=== PATIENT | male | born 1970 | race Caucasian/White ===

== ENCOUNTER 2017-02-07 12:22 | Emergency (ER) | payer OTHER, MEDICARE ==
[~2017-02-07] VITALS: Ht 185.4 cm; Wt 112.9 kg
[~2017-02-07 12:22] MED LIST: ABILIFY; ACHD5005 PO; AZTH250C PO; CEFD300C3; CETI10TA17 PO; CETI10TA20 PO; CIPR500S2 PO; CLIN300C3 PO; CYCL10TA9 PO; DESV50TA; DESV50TA PO; DOXEPIN; DXCC100CRX; FAMO20TA5 PO; HSCO125; HYDR-1231 PO; HYDR-2856; HYDR-3714; HYDR118S10 PO; HYDR25CA PO; LORA10TA2 PO; LORA1TAB PO; MAG355OR PO; METHOTREXATE; METO-351 PO; NITR-65 PO; OMEP-10 PO; PANT20TA2 PO; PNT40TEC PO; PREG50C PO; PRM25T PO; ROPI1TAB; SCR1T PO; TEST1.25 TD; TEST75GE3 TD; TR1C15 TOP; [UNRECOGNIZED DRUG - OTHER]; [UNRECOGNIZED DRUG - OTHER] PO
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
[2017-02-07 14:27] VITALS: BP 128/80
== END 2017-02-07 14:27 | disposition home or self-care (01) ==
LOC: EDUNIT# 12:22 → ER 12:24
DX: S16.1XXA Strain of muscle, fascia and tendon at neck level, initial encounter (principal); K21.9 Gastro-esophageal reflux disease without esophagitis; F90.9 Attention-deficit hyperactivity disorder, unspecified type; F41.9 Anxiety disorder, unspecified; F32.9 Major depressive disorder, single episode, unspecified; Z87.19 Personal history of other diseases of the digestive system; Z98.1 Arthrodesis status; Z85.528 Personal history of other malignant neoplasm of kidney; V49.40XA Driver injured in collision with unspecified motor vehicles in traffic accident, initial encounter
CPT/HCPCS: 70450; 72125; 99282

== ENCOUNTER 2017-02-10 09:19 | Emergency (ER) | payer MEDICARE, MEDICAID ==
[~2017-02-10] VITALS: Ht 185.4 cm; Wt 113.2 kg
--- OUTSIDE RECORDS SUMMARY | 2017-02-10 09:27 | XMS REPORT | Encounter Summary ---
Author Author [facility] Organization [facility] Address Unknown Phone Unavailable Care Team Providers Care Census Enumerator Name Role Phone PCP Unavailable Encounter Details Date Type Department Care Team Description 11/05/2016 Procedure Pass [facility] - Urology 2ND FLOOR POD A [address] [facility] [place] [address] Social History Tobacco Use Types Packs/Day Years Used Date Never Smoker Smokeless Tobacco: Never Used Alcohol Use Drinks/Week oz/Week Comments No 0 Standard 0.0 drinks or equivalent Sex Assigned at Date Recorded Not on file as of this encounter Plan of Treatment Date Type Specialty Care Team Description 11/05/2016 Procedure Pass Urology 11/05/2016 Procedure Pass Urology as of this encounter Visit Diagnoses Not on filein this encounter
--- OUTSIDE RECORDS SUMMARY | 2017-02-10 09:27 | XMS REPORT ---
Author JORGE LUIS Valerio Organization [employer] Address Unknown Phone Unavailable Care Team Providers Care Hybrid Powertrain Development Engineer Name Role Phone JORGE LUIS MCDANIEL CP Unavailable Allergies No Known Allergies Problems Problem Type Condition Code Onset Dates Condition Status Problem Anxiety F41.9 Active Problem Hypertension, benign I10 Active Problem Right knee pain M25.561 Active Medications Medication Code System Code Instructions Start Date End Date Status Dosage Lorazepam [facility] [address]-94 1 MG Orally three times a day April 27, 2014 1 Tablet Results No Known Results Summary Purpose [employer] Submission
--- OUTSIDE RECORDS SUMMARY | 2017-02-10 09:27 | XMS REPORT | Continuity of Care Document ---
Author Author [facility] Organization [facility] Address Unknown Phone Unavailable Care Team Providers Care Triage Specialist Name Role Phone [employer] Unavailable Unavailable Problems Medications Allergies, Adverse Reactions, Alerts Immunizations Results Vital Signs Encounters Location Location Details Encounter Type Encounter Number Reason For Visit Attending Provider ADM Date DC Date Status Source OUTPATIENT [id number] ANIYA HUGHES 05/23/2015 05/23/2015 Active [facility] OUTPATIENT [id number] ANIYA HUGHES 11/05/2016 Active [facility] O ANIYA HUGHES 11/05/2016 Active [facility] Procedures Plan of Care Social History Assessment and Plan Family History Value Date Source Advance Directives Order Name Results Value Date Source
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
--- OUTSIDE RECORDS SUMMARY | 2017-02-10 09:27 | XMS REPORT ---
Author Author JORGE LUIS MCDANIEL [facility] Address [address] [place] [address] Care Team Providers Care Cleaning Crew Member Name Role Phone JORGE LUIS MCDANIEL Unavailable PROBLEMS Type Condition ICD9-CM Code [id number] Code Onset Dates Condition Status SNOMED Code Problem Anxiety F41.9 Active 14406963 Problem Irritable bowel syndrome with diarrhea K58.0 Active 61922386 Problem Right knee pain M25.561 Active 28761050 Problem Hypertension, benign I10 Active 89108023 Problem Hypotestosteronemia E29.1 Active 2279505111452 Problem Psoriasis L40.9 Active 9289481 Problem Neuropathy, idiopathic G60.9 Active 12482221 Problem Sore throat J02.9 Active 969531316 Problem Primary insomnia F51.01 Active 9942030 Problem Polyneuropathy G62.9 Active 83807968 ALLERGIES Unknown Allergies SOCIAL HISTORY No smoking Hx information available PLAN OF CARE VITAL SIGNS MEDICATIONS Medication Instructions Dosage Frequency Start Date End Date Duration Status Hydrocodone-Acetaminophen 7.5-325 MG Orally every 6 hrs 1 tablet as needed 6h Jan, 28 days Active RESULTS No Results PROCEDURES No Known procedures IMMUNIZATIONS No Known Immunizations
--- OUTSIDE RECORDS SUMMARY | 2017-02-10 09:27 | XMS REPORT ---
Author Author JORGE LUIS MCDANIEL Organization [facility] Address [address] [place] [address] Care Team Providers Care Inventory Technician Name Role Phone JORGE LUIS MCDANIEL Unavailable PROBLEMS Type Condition ICD9-CM Code [id number] Code Onset Dates Condition Status SNOMED Code Problem Anxiety F41.9 Active 83024512 Problem Irritable bowel syndrome with diarrhea K58.0 Active 34526891 Problem Right knee pain M25.561 Active 25370562 Problem Hypertension, benign I10 Active 58112810 Problem Hypotestosteronemia E29.1 Active 3226371445906 Problem Psoriasis L40.9 Active 2030826 Problem Neuropathy, idiopathic G60.9 Active 84311258 Problem Sore throat J02.9 Active 898499089 Problem Primary insomnia F51.01 Active 9458597 Problem Polyneuropathy G62.9 Active 01571037 ALLERGIES Substance Reaction Event Type Date Status Lunesta intolerant to taste Drug Allergy Jan, Active Cymbalta Unknown Drug Allergy Jan, Active Bactrim Unknown Drug Allergy Jan, Active SOCIAL HISTORY No smoking Hx information available PLAN OF CARE VITAL SIGNS Height 73 in 2016-02-09 Weight 241.3 lbs 2016-02-09 Temperature 98.1 degrees Fahrenheit 2016-02-09 Heart Rate 88 bpm 2016-02-09 Respiratory Rate 18 2016-02-09 BMI 31.83 kg/m2 2016-02-09 Blood pressure systolic 122 mmHg 2016-02-09 Blood pressure diastolic 90 mmHg 2016-02-09 MEDICATIONS Medication Instructions Dosage Frequency Start Date End Date Duration Status Acidophilus - Orally Once a day as directed 24h Jan, Active Cyclobenzaprine HCl 10 mg 1 tablet 8h 30 Active Famotidine 20 mg 1 tablet 12h 30 Active Xyzal 5 mg 1 tablet 24h 30 Active Dicyclomine HCl 20 mg Orally Four times a day 1 tablet 6h 30 Active Lorazepam 1 MG Orally 3 times a day 1 Tablet 8h Apr, 28 days Active Venlafaxine HCl ER 75 MG Orally Once a day 1 capsule with food 24h Dec, 30 day(s) Active Mirtazapine 15 MG Orally Once a day 1 tablet at bedtime 24h Jan, 30 day(s) Active Neurontin 800 MG Orally Three times a day 1 capsule 8h 30 Active Meloxicam 15 MG 1 tablet 24h 30 Active Sudafed 30 MG Orally 4 times a day 1 tablet as needed 6h June, Active Protonix 40 mg 1 tablet 24h 30 Active Clobetasol Propionate E 0.05 % Externally Twice a day 1 application to affected area 12h Active Zofran 8 MG Orally Once a day 1 tablet 24h 23 Jun, 2015 30 day(s) Active Metoprolol Tartrate 50 mg Orally Twice a day 1 tablet 12h 30 Active Hydrocodone-Acetaminophen 7.5-325 MG Orally every 6 hrs 1 tablet as needed 6h Active RESULTS No Results PROCEDURES Procedure Date Ordered Related Diagnosis Body Site [facility] VISIT ESTABLISHED PATIENT Feb 09, 2016 Office Visit, Est Pt., Level 3 Feb 09, 2016 IMMUNIZATIONS No Known Immunizations
--- OUTSIDE RECORDS SUMMARY | 2017-02-10 09:27 | XMS REPORT | Encounter Summary ---
Author Author [facility] Organization [facility] Address Unknown Phone Unavailable Care Team Providers Care Buffing Wheel Presser Name Role Phone PCP Unavailable Encounter Details Date Type Department Care Team Description 11/05/2016 Procedure Pass [facility] Physicians - Urology 2ND FLOOR POD A [address] [facility] [place] [address] Social History Tobacco Use Types [...]
--- OUTSIDE RECORDS SUMMARY | 2017-02-10 09:27 | XMS REPORT ---
Author Author JORGE LUIS MCDANIEL Organization [facility] Address [address] [place] [address] Care Team Providers Care Septic Tank Servicer Name Role Phone JORGE LUIS MCDANIEL Unavailable PROBLEMS Type Condition ICD9-CM Code [id number] Code Onset Dates Condition Status SNOMED Code Problem Sore throat J02.9 Active 522030029 Problem Polyneuropathy G62.9 Active 92067407 Problem Neuropathy, idiopathic G60.9 Active 86322704 Problem Right knee pain M25.561 Active 29370977 Problem Hypertension, benign I10 Active 25724072 Problem Anxiety F41.9 Active 35462644 Problem Irritable bowel syndrome with diarrhea K58.0 Active 04648192 Problem Lumbar disc disease M51.9 Active 50171434 Problem Lumbar disc disease with radiculopathy M51.16 Active 783107962 Problem Psoriasis L40.9 Active 4750718 Problem Primary insomnia F51.01 Active 1654952 Problem Cervical disc disease with myelopathy M50.00 Active 56849094 Problem Hypotestosteronemia E29.1 Active 1668966788828 ALLERGIES No Information SOCIAL HISTORY Never Assessed PLAN OF CARE Activity Details Follow Up 48-72 hours Reason: VITAL SIGNS MEDICATIONS Unknown Medications RESULTS No Results PROCEDURES Procedure Date Ordered Result Body Site TB INTRADERMAL 2016-04-29 Negative TB INTRADERMAL TEST April 29, 2016 IMMUNIZATIONS No Known Immunizations MEDICAL (GENERAL) HISTORY Type Description Date Medical History gastroesophageal reflux disease (GERD) Medical History irritable bowel syndrome Medical History chronic renal insufficiency Medical History psoriasis Medical History migraine headaches Medical History renal cell cancer Medical History back pain, knee pain Medical History depression Medical History anxiety Medical History hypertension Medical History siatica Surgical History EGD-erosive esophagitis, reflux, gastritis 06/2010 Surgical History colonoscopy-normal, small anal skin tag 2008 Surgical History nephrectomy-left partial for renal CA 01/2013 Surgical History spinal fusion-cervical spine at [place] Hospitalization History [facility]-acid reflux 07/2010 Hospitalization History [facility]- cellulitis 2007
--- OUTSIDE RECORDS SUMMARY | 2017-02-10 09:27 | XMS REPORT ---
Author Author JORGE LUIS MCDANIEL [facility] Address [address] [place] [address] Care Team Providers Care Inner Tube Tuber Machine Operator Name Role Phone JORGE LUIS MCDANIEL Unavailable PROBLEMS Type Condition ICD9-CM Code [id number] Code Onset Dates Condition Status SNOMED Code Problem Hypertension, benign I10 Active 22539882 Problem Irritable bowel syndrome with diarrhea K58.0 Active 17471720 Problem Anxiety F41.9 Active 83317528 Problem Right knee pain M25.561 Active 22879989 Problem Hypotestosteronemia E29.1 Active 7303544335960 Problem Psoriasis L40.9 Active 9906861 Problem Neuropathy, idiopathic G60.9 Active 10683892 Problem Sore throat J02.9 Active 244113487 Problem Primary insomnia F51.01 Active 6260497 Problem Polyneuropathy G62.9 Active 54404325 ALLERGIES Substance Reaction Event Type Date Status Lunesta intolerant to taste Drug Allergy Feb, Active Cymbalta Unknown Drug Allergy Feb, Active Bactrim Unknown Drug Allergy Feb, Active SOCIAL HISTORY No smoking Hx information available PLAN OF CARE VITAL SIGNS Height 73 in 2016-03-11 Weight 241.1 lbs 2016-03-11 Temperature 97.7 degrees Fahrenheit 2016-03-11 Heart Rate 100 bpm 2016-03-11 Respiratory Rate 22 2016-03-11 BMI 31.81 kg/m2 2016-03-11 Blood pressure systolic 132 mmHg 2016-03-11 Blood pressure diastolic 91 mmHg 2016-03-11 MEDICATIONS Medication Instructions Dosage Frequency Start Date End Date Duration Status Metoprolol Tartrate 50 mg Orally Twice a day 1 tablet 12h 30 Active Cyclobenzaprine HCl 10 mg 1 tablet 8h 30 Active Sudafed 30 MG Orally 4 times a day 1 tablet as needed 6h June, Active Clobetasol Propionate E 0.05 % Externally Twice a day 1 application to affected area 12h Active Xyzal 5 mg 1 tablet 24h 30 Active Acidophilus - Orally Once a day as directed 24h Jan, Active Neurontin 800 MG Orally Three times a day 1 capsule 8h 30 Active Famotidine 20 mg 1 tablet 12h 30 Active Dicyclomine HCl 20 mg Orally Four times a day 1 tablet 6h 30 Active Protonix 40 mg 1 tablet 24h 30 Active Mirtazapine 15 MG Orally Once a day 1 tablet at bedtime 24h Jan, 30 day(s) Active Meloxicam 15 MG 1 tablet 24h 30 Active Amoxicillin 500 MG Orally 3 times a day 1 capsule 8h Feb, Feb, 14 days Active Hydrocodone-Acetaminophen 7.5-325 MG Orally every 6 hrs 1 tablet as needed 6h Jan, 28 days Active Venlafaxine HCl ER 75 MG Orally Once a day 1 capsule with food 24h Dec, 30 day(s) Active Lorazepam 1 MG Orally 3 times a day 1 Tablet 8h Apr, 28 days Active Zofran 8 MG Orally Once a day 1 tablet 24h June, 30 day(s) Active RESULTS No Results PROCEDURES Procedure Date Ordered Related Diagnosis Body Site [facility] VISIT ESTABLISHED PATIENT Mar 11, 2016 Office Visit, Est Pt., Level 3 Mar 11, 2016 IMMUNIZATIONS No Known Immunizations
--- OUTSIDE RECORDS SUMMARY | 2017-02-10 09:28 | XMS REPORT ---
Author JORGE LUIS Valerio [facility] eClinicalWorks Address Unknown Phone Unavailable Care Team Providers Care High School Music Instructor Name Role Phone JORGE LUIS MCDANIEL CP Unavailable Allergies, Adverse Reactions, Alerts Substance Reaction Event Type Lunesta intolerant to taste Drug Allergy Cymbalta Info Not Available Drug Allergy Bactrim Info Not Available Drug Allergy Problems Problem Type Condition Code Onset Dates Condition Status Assessment Essential hypertension I10 Active Assessment Right knee pain M25.561 Active Assessment Anxiety F41.9 Active Medications Medication Code System Code Instructions Start Date End Date Status Dosage Protonix [facility] 66150164749 40 MG TAKE ONE TABLET BY MOUTH DAILY Metoprolol Tartrate [facility] [address]-40 50 MG Orally Twice a day Dec 19, 2014 1 tablet Xyzal [facility] 16212994934 5 MG TAKE ONE TABLET BY MOUTH DAILY Betamethasone Valerate [facility] [address]-03 0.1 % 1 sky by Topical route 2 times per day Disp: 45g Cyclobenzaprine HCl [facility] 41436217624 10 MG TAKE ONE TABLET BY MOUTH THREE TIMES DAILY NEEDED AndroGel [facility] [address]-41 50 MG/5GM Transdermal Once a day September 14, 2014 as directed [place] [facility] [address]-99 7.5-325 MG Orally every 6 hrs MUST KEEP 11/18/14 APPT April 27, 2014 take 1 tablet Lorazepam [facility] [address]-13 1 MG Orally three times a day MUST KEEP 11/18/14 APPT April 27, 2014 1 Tablet Pristiq [facility] 30633032325 50 MG TAKE ONE TABLET BY MOUTH DAILY Neurontin [facility] [address]-03 400 MG Orally Three times a day Oct 14, 2014 1 capsule Famotidine [facility] 36550209322 20 MG TAKE ONE TABLET BY MOUTH TWICE DAILY Meloxicam [facility] 28222198542 15 MG take 1 tablet (15 mg) by oral route once daily Sudafed [facility] [address]-58 30 MG Orally 4 times a day July 05, 2014 1 tablet as needed Procedures Procedure Coding System Code Date Office Visit, Est Pt., Level 3 CPT-4 99134 Dec 19, 2014 [facility] VISIT ESTABLISHED PATIENT CPT-4 G0467 Dec 19, 2014 Vital Signs Date/Time: Dec 19, 2014 Temperature 98.2 F Weight 245.5 lbs Height 73 in BMI 32.39 Index Blood Pressure Diastolic 100 mmHg Blood Pressure Systolic 140 mmHg Cardiac Monitoring Heart Rate 84 bpm Results No Known Results Summary Purpose eClinicalWorks Submission
--- OUTSIDE RECORDS SUMMARY | 2017-02-10 09:28 | XMS REPORT ---
Author JORGE LUIS Valerio [facility] eClinicalWorks Address Unknown Phone Unavailable Care Team Providers Care Automotive Electrician Name Role Phone JORGE LUIS MCDANIEL CP Unavailable Allergies, Adverse Reactions, Alerts Substance Reaction Event Type Lunesta intolerant to taste Drug Allergy Cymbalta Info Not Available Drug Allergy Bactrim Info Not Available Drug Allergy Problems Problem Type Condition Code Onset Dates Condition Status Problem Sore throat J02.9 Active Problem Irritable bowel syndrome with diarrhea K58.0 Active Problem Neuropathy, idiopathic G60.9 Active Problem Hypertension, benign I10 Active Assessment Neuropathy, idiopathic G60.9 Active Problem Right knee pain M25.561 Active Problem Anxiety F41.9 Active Medications Medication Code System Code Instructions Start Date End Date Status Dosage [place]ulia-[place] [address]s Sinus & Cough [facility] 9[address]1526 10-5-325 MG Orally every 4 hrs 2 capsules as needed Zofran [facility] [address]-93 8 MG Orally Once a day July 17, 2015 1 tablet Cyclobenzaprine HCl [facility] [address]-63 10 mg Three times a day 1 tablet Clobetasol Propionate E [facility] [address]-51 0.05 % Externally Twice a day 1 application to affected area Dicyclomine HCl [facility] [address]-68 20 mg Orally Four times a day 1 tablet Sudafed [facility] [address]-70 30 MG Orally 4 times a day July 05, 2014 1 tablet as needed Meloxicam [facility] [address]-46 15 MG Once a day 1 tablet Protonix [facility] [address]-70 40 mg Once a day 1 tablet Metoprolol Tartrate [facility] [address]-52 50 mg Orally Twice a day 1 tablet Xyzal [facility] [address]-97 5 mg Once a day 1 tablet Famotidine [facility] [address]-29 20 mg 2 times a day 1 tablet Hydrocodone-Acetaminophen [facility] 00845422829 7.5-325 MG Orally every 6 hrs Jan 25, 2016 1 tablet Doxepin HCl [facility] [address]-65 25 MG Orally Once a day Dec 28, 2015 1 capsule at bedtime Neurontin [facility] [address]-17 800 MG Orally Three times a day 1 capsule Lorazepam [facility] [address]-90 1 MG Orally 3 times a day April 27, 2014 1 Tablet Procedures Procedure Coding System Code Date Office Visit, Est Pt., Level 3 CPT-4 12400 Dec 28, 2015 [facility] ESTABL[facility] PATIENT CPT-4 G0467 Dec 28, 2015 Vital Signs Date/Time: Dec 28, 2015 Cardiac Monitoring Heart Rate 76 bpm Weight 237.5 lbs Height 73 in BMI 31.33 Index Blood Pressure Diastolic 83 mmHg Blood Pressure Systolic 121 mmHg Results No Known Results Summary Purpose eClinicalWorks Submission
--- OUTSIDE RECORDS SUMMARY | 2017-02-10 09:28 | XMS REPORT ---
Author Author JORGE LUIS MCDANIEL [facility] Address [address] [place] [address] Care Team Providers Care Nail Making Machine Setter Name Role Phone JORGE LUIS MCDANIEL Unavailable PROBLEMS Type Condition ICD9-CM Code [id number] Code Onset Dates Condition Status SNOMED Code Problem Sore throat J02.9 Active 775381952 Problem Irritable bowel syndrome with diarrhea K58.0 Active 65395894 Problem Hypertension, benign I10 Active 47129323 Problem Right knee pain M25.561 Active 43551719 Problem Anxiety F41.9 Active 89008173 ALLERGIES Unknown Allergies SOCIAL HISTORY No smoking Hx information available PLAN OF CARE VITAL SIGNS MEDICATIONS Unknown Medications RESULTS No Results PROCEDURES No Known procedures IMMUNIZATIONS No Known Immunizations
--- OUTSIDE RECORDS SUMMARY | 2017-02-10 09:28 | XMS REPORT ---
Author JORGE LUIS Valerio Organization eClinicalWorks Address Unknown Phone Unavailable Care Team Providers Care Associate Dean Of Women Name Role Phone JORGE LUIS MCDANIEL CP Unavailable Allergies No Known Allergies Problems Problem Type Condition Code Onset Dates Condition Status Problem Sore throat J02.9 Active Problem Irritable bowel syndrome with diarrhea K58.0 Active Problem Neuropathy, idiopathic G60.9 Active Problem Hypertension, benign I10 Active Problem Right knee pain M25.561 Active Problem Anxiety F41.9 Active Medications Medication Code System Code Instructions Start Date End Date Status Dosage Lorazepam [facility] [address]-84 1 MG Orally 3 times a day April 27, 2014 1 Tablet Hydrocodone-Acetaminophen [facility] 72664365980 7.5-325 MG Orally every 6 hrs Jan 25, 2016 1 tablet Results No Known Results Summary Purpose eClinicalWorks Submission
--- OUTSIDE RECORDS SUMMARY | 2017-02-10 09:28 | XMS REPORT ---
Author Author JORGE LUIS MCDANIEL Organization [facility] Address [address] [place] [address] Care Team Providers Care Community Relations Advisor Name Role Phone JORGE LUIS MCDANIEL Unavailable PROBLEMS Type Condition ICD9-CM Code [id number] Code Onset Dates Condition Status SNOMED Code Problem Sore throat J02.9 Active 011019181 Problem Irritable bowel syndrome with diarrhea K58.0 Active 72247834 Problem Hypertension, benign I10 Active 92723211 Problem Right knee pain M25.561 Active 79058606 Problem Anxiety F41.9 Active 07971556 ALLERGIES Unknown Allergies SOCIAL HISTORY No smoking Hx information available PLAN OF CARE VITAL SIGNS MEDICATIONS Medication Instructions Dosage Frequency Start Date End Date Duration Status Sudafed 30 MG Orally 4 times a day 1 tablet as needed 6h June, Active Lorazepam 1 MG Orally three times a day 1 Tablet 8h Apr, as needed Active Zofran 8 MG Orally Once a day 1 tablet 24h June, 30 day(s) Active Cyclobenzaprine HCl 10 MG 1 tablet 8h 30 Active Meloxicam 15 MG 1 tablet 24h 30 Active Hydrocodone-Acetaminophen 7.5-325 MG TAKE ONE TABLET BY MOUTH EVERY 6 HOURS NEEDED 28 Active RESULTS No Results PROCEDURES No Known procedures IMMUNIZATIONS No Known Immunizations
--- OUTSIDE RECORDS SUMMARY | 2017-02-10 09:28 | XMS REPORT ---
Author Author JORGE LUIS MCDANIEL Organization eClinicalWorks Address Unknown Phone Unavailable Care Team Providers Care Tractor Operator Battery Name Role Phone JORGE LUIS MCDANIEL CP Unavailable Allergies No Known Allergies Problems Problem Type Condition Code Onset Dates Condition Status Problem Anxiety F41.9 Active Problem Hypertension, benign I10 Active Problem Right knee pain M25.561 Active Medications Medication Code System Code Instructions Start Date End Date Status Dosage Lorazepam [facility] [address]-13 1 MG Orally three times a day April 27, 2014 1 Tablet Sudafed [facility] [address]-54 30 MG Orally 4 times a day July 05, 2014 1 tablet as needed Results No Known Results Summary Purpose eClinicalWorks Submission
--- OUTSIDE RECORDS SUMMARY | 2017-02-10 09:28 | XMS REPORT ---
Author CECILE Weber [facility] eClinicalWorks Address Unknown Phone Unavailable Care Team Providers Care Needle Board Repairer Name Role Phone CECILE CONTRERAS CP Unavailable Allergies, Adverse Reactions, Alerts Substance Reaction Event Type Lunesta intolerant to taste Drug Allergy Cymbalta Info Not Available Drug Allergy Bactrim Info Not Available Drug Allergy Problems Problem Type Condition Code Onset Dates Condition Status Assessment Aphthous ulcer K12.0 Active Problem Sore throat J02.9 Active Problem Irritable bowel syndrome with diarrhea K58.0 Active Problem Neuropathy, idiopathic G60.9 Active Problem Hypertension, benign I10 Active Assessment Acute mucoid otitis media of left ear H65.112 Active Problem Right knee pain M25.561 Active Problem Anxiety F41.9 Active Medications Medication Code System Code Instructions Start Date End Date Status Dosage Famotidine [facility] [address]-47 20 mg 2 times a day 1 tablet Clobetasol Propionate E [facility] [address]-40 0.05 % Externally Twice a day 1 application to affected area Venlafaxine HCl ER [facility] [address]-15 75 MG Orally Once a day Jan 02, 2016 1 capsule with food Neurontin [facility] [address]-52 800 MG Orally Three times a day 1 capsule Magic Mouthwash [facility] 0 30 ML each of 2% Viscous Lidocaine/Maalox/Benadryl Oral Swish and Spit 4 times daily Jan 14, 2016 Jan 28, 2016 10 ml Lorazepam [facility] [address]-49 1 MG Orally 3 times a day April 27, 2014 1 Tablet Metoprolol Tartrate [facility] [address]-25 50 mg Orally Twice a day 1 tablet Sudafed [facility] [address]-58 30 MG Orally 4 times a day July 05, 2014 1 tablet as needed Zofran [facility] [address]-15 8 MG Orally Once a day July 17, 2015 1 tablet Dicyclomine HCl [facility] [address]-19 20 mg Orally Four times a day 1 tablet Cyclobenzaprine HCl [facility] [address]-45 10 mg Three times a day 1 tablet Azithromycin [facility] [address]-08 250 MG Orally Once a day Jan 14, 2016 Jan 19, 2016 2 tablets on the first day, then 1 tablet daily for 4 days [address]ia-[place] Pls Sinus & Cough [facility] 35739-[address]55 10-5-325 MG Orally every 4 hrs 2 capsules as needed Hydrocodone-Acetaminophen [facility] 33790687927 7.5-325 MG Orally every 6 hrs Jan 25, 2016 1 tablet Doxepin HCl [facility] [address]-99 25 MG Orally Once a day Dec 28, 2015 1 capsule at bedtime Xyzal [facility] [address]-03 5 mg Once a day 1 tablet Protonix [facility] [address]-03 40 mg Once a day 1 tablet Meloxicam [facility] [address]-06 15 MG Once a day 1 tablet Procedures Procedure Coding System Code Date Office Visit, Est Pt., Level 3 CPT-4 03455 Jan 14, 2016 [facility] VISIT ESTABLISHED PATIENT CPT-4 G0467 Jan 14, 2016 Vital Signs Date/Time: Jan 14, 2016 Cardiac Monitoring Heart Rate 84 bpm Weight 242.6 lbs Height 73 in BMI 32.00 Index Blood Pressure Diastolic 88 mmHg Blood Pressure Systolic 132 mmHg Results No Known Results Summary Purpose eClinicalWorks Submission
--- OUTSIDE RECORDS SUMMARY | 2017-02-10 09:28 | XMS REPORT ---
Author JORGE LUIS Valerio [facility] eClinicalWorks Address Unknown Phone Unavailable Care Team Providers Care Shoe Puller Name Role Phone JORGE LUIS MCDANIEL CP Unavailable Allergies, Adverse Reactions, Alerts Substance Reaction Event Type Lunesta intolerant to taste Drug Allergy Cymbalta Info Not Available Drug Allergy Bactrim Info Not Available Drug Allergy Problems Problem Type Condition ICD-9 Code Onset Dates Condition Status Problem Herpes simplex without mention of complication 054.9 Active Problem Malignant neoplasm of kidney, except pelvis 189.0 Active Problem Lateral epicondylitis of elbow 726.32 Active Problem Other psoriasis 696.1 Active Problem Other testicular hypofunction 257.2 Active Problem Insomnia, unspecified 780.52 Active Assessment Benign neoplasm of skin, site unspecified 216.9 Active Assessment Pain in joint, site unspecified 719.40 Active Problem Pain in joint, lower leg 719.46 Active Problem Benign neoplasm of skin, site unspecified 216.9 Active Problem Unspecified arthropathy, site unspecified 716.90 Active Problem Pain in joint, site unspecified 719.40 Active Problem Unspecified hypertrophic and atrophic condition of skin 701.9 Active Problem Esophageal reflux 530.81 Active Problem Encounter for long-term (current) use of other medications V58.69 Active Problem Routine general medical examination at health care facility V70.0 Active Problem Irritable bowel syndrome 564.1 Active Problem Generalized anxiety disorder 300.02 Active Problem Major depressive disorder, recurrent episode, moderate 296.32 Active Problem Other chronic pain 338.29 Active Problem Anal or rectal pain 569.42 Active Problem Influenza with other respiratory manifestations 487.1 Active Problem Personal history of other allergy, other than to medicinal agents V15.09 Active Medications Medication Code System Code Instructions Start Date End Date Status Dosage Protonix [facility] 52225879673 40 MG TAKE ONE TABLET BY MOUTH DAILY Lorazepam [facility] [address]-29 1 MG Orally three times a day April 27, 2014 1 Tablet Neurontin [facility] [address]-27 300 MG Orally Three times a day Oct 14, 2014 1 capsule Meloxicam [facility] 71969776503 15 MG take 1 tablet (15 mg) by oral route once daily [place] [facility] [address]-56 7.5-325 MG Orally every 6 hrs April 27, 2014 take 1 tablet Sudafed [facility] [address]-49 30 MG Orally 4 times a day July 05, 2014 1 tablet as needed Pristiq [facility] 62811834376 50 MG TAKE ONE TABLET BY MOUTH DAILY AndroGel [facility] [address]-79 50 MG/5GM Transdermal Once a day September 14, 2014 as directed Cyclobenzaprine HCl [facility] 57364341811 10 MG TAKE ONE TABLET BY MOUTH THREE TIMES DAILY NEEDED Betamethasone Valerate [facility] [address]-63 0.1 % 1 sky by Topical route 2 times per day Disp: 45g Procedures Procedure Coding System Code Date Office Visit, Est Pt., Level 3 CPT-4 27731 Oct 19, 2014 [facility] VISIT ESTABLISHED PATIENT CPT-4 G0467 Oct 19, 2014 Vital Signs Date/Time: Oct 19, 2014 Temperature 97.6 F Weight 244.1 lbs Height 73 in BMI 32.20 Index Blood Pressure Diastolic 86 mmHg Blood Pressure Systolic 132 mmHg Cardiac Monitoring Heart Rate 112 bpm Results No Known Results Summary Purpose eClinicalWorks Submission
--- OUTSIDE RECORDS SUMMARY | 2017-02-10 09:28 | XMS REPORT ---
Author Author JORGE LUIS MCDANIEL Organization [facility] Address [address] [place] [address] Care Team Providers Care Engineering Inspection Assistant Name Role Phone JORGE LUIS MCDANIEL Unavailable PROBLEMS Type Condition ICD9-CM Code [id number] Code Onset Dates Condition Status SNOMED Code Problem Sore throat J02.9 Active 550699581 Problem Polyneuropathy G62.9 Active 49877639 Problem Neuropathy, idiopathic G60.9 Active 73146717 Problem Right knee pain M25.561 Active 98032037 Problem Hypertension, benign I10 Active 57187461 Problem Anxiety F41.9 Active 00696482 Problem Irritable bowel syndrome with diarrhea K58.0 Active 74717389 Problem Lumbar disc disease M51.9 Active 70410338 Problem Lumbar disc disease with radiculopathy M51.16 Active 609377534 Problem Psoriasis L40.9 Active 9226428 Problem Primary insomnia F51.01 Active 0089063 Problem Cervical disc disease with myelopathy M50.00 Active 81009099 Problem Hypotestosteronemia E29.1 Active [id number] ALLERGIES No Information SOCIAL HISTORY Never Assessed PLAN OF CARE VITAL SIGNS MEDICATIONS Medication Instructions Dosage Frequency Start Date End Date Duration Status Lorazepam 1 MG Orally 3 times a day 1 Tablet 8h Apr, 28 days Active Hydrocodone-Acetaminophen 10-325 MG Orally every 6 hrs 1 tablet as needed 6h Apr, 26 days Active RESULTS No Results PROCEDURES No Known procedures IMMUNIZATIONS No Known Immunizations MEDICAL (GENERAL) HISTORY [...] 01/2013 Surgical History spinal fusion-cervical spine at [place] Hospitalization History [facility]-acid reflux 07/2010 Hospitalization History [facility]- cellulitis 2008
--- OUTSIDE RECORDS SUMMARY | 2017-02-10 09:28 | XMS REPORT ---
Author JORGE LUIS Valerio [facility] eClinicalWorks Address Unknown Phone Unavailable Care Team Providers Care Clinical Laboratory Service Teacher Name Role Phone JORGE LUIS MCDANIEL CP Unavailable Allergies No Known Allergies Problems Problem Type Condition Code Onset Dates Condition Status Problem Herpes simplex without mention of complication 054.9 Active Problem Malignant neoplasm of kidney, except pelvis 189.0 Active Problem Lateral epicondylitis of elbow 726.32 Active Problem Other psoriasis 696.1 Active Problem Other testicular hypofunction 257.2 Active Problem Insomnia, unspecified 780.52 Active Problem Pain in joint, lower leg [...] Instructions Start Date End Date Status Dosage [place] [facility] [address]-70 7.5-325 MG Orally every 6 hrs MUST KEEP 11/18/14 APPT April 27, 2014 take 1 tablet Sudafed [facility] [address]-19 30 MG Orally 4 times a day July 05, 2014 1 tablet as needed Lorazepam [facility] [address]-32 1 MG Orally three times a day MUST KEEP 11/18/14 APPT April 27, 2014 1 Tablet AndroGel [facility] [address]-84 50 MG/5GM Transdermal Once a day September 14, 2014 as directed Results No Known Results Summary Purpose eClinicalWorks Submission
--- OUTSIDE RECORDS SUMMARY | 2017-02-10 09:29 | XMS REPORT ---
Author JORGE LUIS Valerio Organization eClinicalWorks Address Unknown Phone Unavailable Care Team Providers Care Hurricane Tracker Name Role Phone JORGE LUIS MCDANIEL CP Unavailable Allergies No Known Allergies Problems Problem Type Condition Code Onset Dates Condition Status Problem Irritable bowel syndrome with diarrhea K58.0 Active Problem Right knee pain M25.561 Active Problem Sore throat J02.9 Active Problem Anxiety F41.9 Active Problem Hypertension, benign I10 Active Medications Medication Code System Code Instructions Start Date End Date Status Dosage Doxycycline Hyclate [facility] [address]-94 100 MG Orally every 12 hrs Dec 07, 2015 Dec 17, 2015 1 tablet Results No Known Results Summary Purpose eClinicalWorks Submission
--- OUTSIDE RECORDS SUMMARY | 2017-02-10 09:29 | XMS REPORT ---
Author JORGE LUIS Valerio [facility] eClinicalWorks Address Unknown Phone Unavailable Care Team Providers Care Roaster Helper Name Role Phone JORGE LUIS MCDANIEL CP Unavailable Allergies, Adverse Reactions, Alerts Substance Reaction Event Type Lunesta intolerant to taste Drug Allergy Cymbalta Info Not Available Drug Allergy Bactrim Info Not Available Drug Allergy Problems Problem Type Condition Code Onset Dates Condition Status Assessment Irritable bowel syndrome with diarrhea K58.0 Active Problem Irritable bowel syndrome with diarrhea K58.0 Active Problem Right knee pain M25.561 Active Problem Sore throat J02.9 Active Assessment Pharyngitis, unspecified etiology J02.9 Active Assessment Pain in right hip M25.551 Active Problem Anxiety F41.9 Active Problem Hypertension, benign I10 Active Medications Medication Code System Code Instructions Start Date End Date Status Dosage Yulia-[place] Pls Sinus & Cough [facility] [address] 10-5-325 MG Orally every 4 hrs 2 capsules as needed Famotidine [facility] [address]-19 20 mg 2 times a day 1 tablet Cyclobenzaprine HCl [facility] [address]-58 10 mg Three times a day 1 tablet Neurontin [facility] [address]-24 600 MG Orally Three times a day 1 capsule Meloxicam [facility] [address]-65 15 MG Once a day 1 tablet Sudafed [facility] [address]-51 30 MG Orally 4 times a day July 05, 2014 1 tablet as needed Hydrocodone-Acetaminophen [facility] 61831240845 7.5-325 MG Orally every 6 hrs 1 tablet Lorazepam [facility] [address]-68 1 MG Orally 3 times a day April 27, 2014 1 Tablet Xyzal [facility] [address]-76 5 mg Once a day 1 tablet Zofran [facility] [address]-88 8 MG Orally Once a day July 17, 2015 1 tablet Dicyclomine HCl [facility] [address]-96 20 mg Orally Four times a day 1 tablet Metoprolol Tartrate [facility] [address]-54 50 mg Orally Twice a day 1 tablet Clobetasol Propionate E [facility] [address]-54 0.05 % Externally Twice a day 1 application to affected area Protonix [facility] [address]-73 40 mg Once a day 1 tablet Procedures Procedure Coding System Code Date Office Visit, Est Pt., Level 3 CPT-4 01924 Nov 30, 2015 [facility] VISIT ESTABLISHED PATIENT CPT-4 G0467 Nov 30, 2015 Vital Signs Date/Time: Nov 30, 2015 Cardiac Monitoring Heart Rate 84 bpm Weight 245.1 lbs Height 73 in BMI 32.33 Index Blood Pressure Diastolic 84 mmHg Blood Pressure Systolic 130 mmHg Results No Known Results Summary Purpose eClinicalWorks Submission
--- OUTSIDE RECORDS SUMMARY | 2017-02-10 09:29 | XMS REPORT ---
Author JORGE LUIS Valerio Organization eClinicalWorks Address Unknown Phone Unavailable Care Team Providers Care [employer] Founder Name Role Phone JORGE LUIS MCDANIEL CP [...] Instructions Start Date End Date Status Dosage Venlafaxine HCl ER [facility] [address]-03 75 MG Orally Once a day Jan 02, 2016 1 capsule with food Results No Known Results Summary Purpose eClinicalWorks Submission
--- OUTSIDE RECORDS SUMMARY | 2017-02-10 09:29 | XMS REPORT ---
Author JORGE LUIS Valerio Organization eClinicalWorks Address Unknown Phone Unavailable Care Team Providers Care Emergency Room Orderly Name Role Phone JORGE LUIS MCDANIEL CP Unavailable Allergies No Known Allergies Problems Problem Type Condition Code Onset Dates Condition Status Problem Irritable bowel syndrome with diarrhea K58.0 Active Problem Right knee pain M25.561 Active Problem Sore throat J02.9 Active Problem Anxiety F41.9 Active Problem Hypertension, benign I10 Active Medications Medication Code System Code Instructions Start Date End Date Status Dosage Sudafed [facility][NOTE 3] [address]-39 30 MG Orally 4 times a day July 05, 2014 1 tablet as needed Lorazepam [facility][NOTE 3] [address]-22 1 MG Orally three times a day April 27, 2014 1 Tablet Hydrocodone-Acetaminophen [facility][NOTE 3] 20049166848 7.5-325 MG TAKE ONE TABLET BY MOUTH EVERY 6 HOURS NEEDED Results No Known Results Summary Purpose eClinicalWorks Submission
--- OUTSIDE RECORDS SUMMARY | 2017-02-10 09:29 | XMS REPORT ---
Author Author JORGE LUIS MCDANIEL [facility] Address [address] [place] [address] Care Team Providers Care Belt Knife Feeder Name Role Phone JORGE LUIS MCDANIEL Unavailable PROBLEMS Type Condition ICD9-CM Code [id number] Code Onset Dates Condition Status SNOMED Code Problem Sore throat J02.9 Active 661952650 Problem Polyneuropathy G62.9 Active 10929082 Problem Neuropathy, idiopathic G60.9 Active 73703411 Problem Right knee pain M25.561 Active 75950427 Problem Hypertension, benign I10 Active 94959282 Problem Anxiety F41.9 Active 64349761 Problem Irritable bowel syndrome with diarrhea K58.0 Active 16860798 Problem Lumbar disc disease M51.9 Active 91227401 Problem Lumbar disc disease with radiculopathy M51.16 Active 498804787 Problem Psoriasis L40.9 Active 4635079 Problem Primary insomnia F51.01 Active 1578632 Problem Cervical disc disease with myelopathy M50.00 Active 24748235 Problem Hypotestosteronemia E29.1 Active [id number] ALLERGIES No Information SOCIAL HISTORY Never Assessed PLAN OF CARE VITAL SIGNS MEDICATIONS Unknown Medications RESULTS Name Result Date Reference Range TESTOSTERONE, FREE AND TOTAL 2016-04-29 Testosterone, Serum [id number] Comment: Free Testosterone(Direct) [facility] 2016-04-29 Glucose, Serum 74 65-99 BUN 16 6-24 Creatinine, Serum 1.19 0.76-1.27 eGFR If NonAfricn Am 73 >59 eGFR If Africn Am 84 >59 BUN/Creatinine Ratio 13 9-20 Sodium, Serum 142 134-144 Potassium, Serum 4.3 3.5-5.2 Chloride, Serum 101 96-106 Carbon Dioxide, Total 22 18-29 Calcium, Serum 9.3 8.7-10.2 Protein, Total, Serum 6.7 6.0-8.5 Albumin, Serum 4.2 3.5-5.5 Globulin, Total 2.5 1.5-4.5 A/G Ratio 1.7 1.1-2.5 Bilirubin, Total <0.2 0.0-1.2 Alkaline Phosphatase, S 88 39-117 AST (SGOT) 21 0-40 ALT (SGPT) 37 0-44 CBC w/ MANUAL DIFF 2016-04-29 Neutrophils 76 Lymphs 16 Monocytes 7 Eos 1 Basos 0 Neutrophils Absolute 5.9 1.4-7.0 Lymphs (Absolute) 1.2 0.7-3.1 Monocytes(Absolute) 0.5 0.1-0.9 Eos (Absolute Value) 0.1 0.0-0.4 Baso(Absolute) 0.0 0.0-0.2 Differential Comment Note: RBC Comment Note: Normal Platelet Comment Note: Adequate TESTOSTERONE, FREE AND TOTAL 2016-04-29 Testosterone, Serum [phone] Comment: Free Testosterone(Direct) 6.0 6.8-21.5 CMP 2016-04-29 Glucose, Serum 74 65-99 BUN 16 6-24 Creatinine, Serum 1.19 0.76-1.27 eGFR If NonAfricn Am 73 >59 eGFR If Africn Am 84 >59 BUN/Creatinine Ratio 13 9-20 Sodium, Serum 142 134-144 Potassium, Serum 4.3 3.5-5.2 Chloride, Serum 101 96-106 Carbon Dioxide, Total 22 18-29 Calcium, Serum 9.3 8.7-10.2 Protein, Total, Serum 6.7 6.0-8.5 Albumin, Serum 4.2 3.5-5.5 Globulin, Total 2.5 1.5-4.5 A/G Ratio 1.7 1.1-2.5 Bilirubin, Total <0.2 0.0-1.2 Alkaline Phosphatase, S 88 39-117 AST (SGOT) 21 0-40 ALT (SGPT) 37 0-44 CBC w/ MANUAL DIFF 2016-04-29 WBC 7.8 3.4-10.8 RBC 4.82 4.14-5.80 Hemoglobin 14.9 12.6-17.7 Hematocrit 43.4 37.5-51.0 MCV 90 79-97 MCH 30.9 26.6-33.0 MCHC 34.3 31.5-35.7 RDW 13.0 12.3-15.4 Platelets 254 150-379 Neutrophils 76 Lymphs 16 Monocytes 7 Eos 1 Basos 0 Neutrophils Absolute 5.9 1.4-7.0 Lymphs (Absolute) 1.2 0.7-3.1 Monocytes(Absolute) 0.5 0.1-0.9 Eos (Absolute Value) 0.1 0.0-0.4 Baso(Absolute) 0.0 0.0-0.2 Differential Comment Note: RBC Comment Note: Normal Platelet Comment Note: Adequate PROCEDURES Procedure Date Ordered Result Body Site LAB [facility] April 29, 2016 VENIPUNCT, ROUTINE* April 29, 2016 IMMUNIZATIONS No Known Immunizations [...] 01/2013 Surgical History spinal fusion-cervical spine at [place] Hospitalization History [facility]-acid reflux 07/2010 Hospitalization History [facility]- cellulitis 2007
--- OUTSIDE RECORDS SUMMARY | 2017-02-10 09:29 | XMS REPORT ---
Author JORGE LUIS Valerio [facility] eClinicalWorks Address Unknown Phone Unavailable Care Team Providers Care Superintendent Colliery Name Role Phone JORGE LUIS MCDANIEL CP Unavailable Allergies, Adverse Reactions, Alerts Substance Reaction Event Type Lunesta intolerant to taste Drug Allergy Cymbalta Info Not Available Drug Allergy Bactrim Info Not Available Drug Allergy Problems Problem Type Condition Code Onset Dates Condition Status Problem Anxiety F41.9 Active Problem Hypertension, benign I10 Active Problem Right knee pain M25.561 Active Assessment Chronic pain G89.29 Active Assessment Other specified respiratory disorders J98.8 Active Assessment Other viral agents as the cause of diseases classified elsewhere B97.89 Active Medications Medication Code System Code Instructions Start Date End Date Status Dosage Lorazepam [facility] [address]-85 1 MG Orally three times a day MUST KEEP 11/18/14 APPT April 27, 2014 1 Tablet Pristiq [facility] 66494687030 50 MG TAKE ONE TABLET BY MOUTH DAILY Metoprolol Tartrate [facility] [address]-80 50 MG Orally Twice a day Dec 19, 2014 1 tablet Betamethasone Valerate [facility] [address]-84 0.1 % 1 sky by Topical route 2 times per day Disp: 45g Sudafed [facility] [address]-88 30 MG Orally 4 times a day July 05, 2014 1 tablet as needed Meloxicam [facility] 43214106583 15 MG take 1 tablet (15 mg) by oral route once daily Xyzal [facility] 08673767765 5 MG TAKE ONE TABLET BY MOUTH DAILY Neurontin [facility] [address]-38 400 MG Orally Three times a day Oct 14, 2014 1 capsule [place] [facility] [address]-60 7.5-325 MG Orally every 6 hrs MUST KEEP 11/18/14 APPT April 27, 2014 take 1 tablet Protonix [facility] 71949684047 40 MG TAKE ONE TABLET BY MOUTH DAILY Famotidine [facility] 48869537948 20 MG TAKE ONE TABLET BY MOUTH TWICE DAILY Keflex [facility] [address]-03 500 MG Orally Twice a day Jan 08, 2015 Jan 18, 2015 1 capsule AndroGel [facility] [address]-40 50 MG/5GM Transdermal Once a day September 14, 2014 as directed Cyclobenzaprine HCl [facility] 66639273173 10 MG TAKE ONE TABLET BY MOUTH THREE TIMES DAILY NEEDED Procedures Procedure Coding System Code Date Office Visit, Est Pt., Level 3 CPT-4 07994 Jan 18, 2015 No Charge CPT-4 70123 Jan 18, 2015 [facility] VISIT ESTABLISHED PATIENT CPT-4 G0467 Jan 18, 2015 INFLUENZA ASSAY W/OPTIC CPT-4 60202 Jan 18, 2015 Vital Signs Date/Time: Jan 18, 2015 Temperature 97.5 F Weight 247.5 lbs Height 73 in BMI 32.65 Index Blood Pressure Diastolic 92 mmHg Blood Pressure Systolic 140 mmHg Cardiac Monitoring Heart Rate 100 bpm Results Name Result Date Reference Range Unit Abnormality Flag INFLUENZA A & B (IN HOUSE) ----Exp date [id number] ----INFLUENZA A Negative [id number] ----INFLUENZA B Negative [id number] ----Control + [id number] ----Lot # [id number] Summary Purpose eClinicalWorks Submission
--- OUTSIDE RECORDS SUMMARY | 2017-02-10 09:29 | XMS REPORT ---
Author Author JORGE LUIS MCDANIEL [facility] Address [address] [place] [address] Care Team Providers Care Product Development Director Name Role Phone JORGE LUIS MCDANIEL Unavailable PROBLEMS Type Condition ICD9-CM Code [id number] Code Onset Dates Condition Status SNOMED Code Problem Hypertension, benign I10 Active 27245427 Problem Irritable bowel syndrome with diarrhea K58.0 Active 61349929 Problem Anxiety F41.9 Active 91583901 Problem Right knee pain M25.561 Active 74157884 Problem Hypotestosteronemia E29.1 Active 3479806442863 Problem Psoriasis L40.9 Active 8129479 Problem Neuropathy, idiopathic G60.9 Active 16692691 Problem Sore throat J02.9 Active 786742390 Problem Primary insomnia F51.01 Active 1659065 Problem Polyneuropathy G62.9 Active 71861452 ALLERGIES Unknown Allergies SOCIAL HISTORY No smoking Hx information available PLAN OF CARE VITAL SIGNS MEDICATIONS Medication Instructions Dosage Frequency Start Date End Date Duration Status Lorazepam 1 MG Orally 3 times a day 1 Tablet 8h Apr, 28 days Active RESULTS No Results PROCEDURES No Known procedures IMMUNIZATIONS No Known Immunizations
--- OUTSIDE RECORDS SUMMARY | 2017-02-10 09:29 | XMS REPORT ---
Author JORGE LUIS Valerio Organization eClinicalWorks Address Unknown Phone Unavailable Care Team Providers Care Allergist/Pediatric Pulmonologist Name Role Phone JORGE LUIS MCDANIEL CP Unavailable Allergies No Known Allergies Problems Problem Type Condition Code Onset Dates Condition Status Assessment Hot flashes N95.1 Active Assessment Tachycardia R00.0 Active Problem Irritable bowel syndrome with diarrhea K58.0 Active Problem Right knee pain M25.561 Active Problem Sore throat J02.9 Active Assessment Nausea with vomiting, unspecified R11.2 Active Assessment Sore throat J02.9 Active Problem Anxiety F41.9 Active Problem Hypertension, benign I10 Active Medications No Known Medications Procedures Procedure Coding System Code Date LAB NOT BILLED BY [facility] CPT-4 NOBLL Sep 25, 2015 Results No Known Results Summary Purpose eClinicalWorks Submission
--- OUTSIDE RECORDS SUMMARY | 2017-02-10 09:29 | XMS REPORT ---
Author Author JORGE LUIS MCDANIEL Organization e[employer]Works Address Unknown Phone Unavailable Care Team Providers Care Food Preservation Scientist Name Role Phone JORGE LUIS MCDANIEL CP Unavailable Allergies No Known Allergies Problems Problem Type Condition Code Onset Dates Condition Status Problem Anxiety F41.9 Active Problem Hypertension, benign I10 Active Problem Right knee pain M25.561 Active Medications Medication Code System Code Instructions Start Date End Date Status Dosage AndroGel [facility] [address]-78 50 MG/5GM Transdermal Once a day September 14, 2014 as directed Lorazepam [facility] [address]-73 1 MG Orally three times a day MUST KEEP 11/18/14 APPT April 27, 2014 1 Tablet Sudafed [facility] [address]-82 30 MG Orally 4 times a day July 05, 2014 1 tablet as needed [place] [facility] [address]-15 7.5-325 MG Orally every 6 hrs MUST KEEP 11/18/14 APPT April 27, 2014 take 1 tablet Results No Known Results Summary Purpose eClinicalWorks Submission
--- OUTSIDE RECORDS SUMMARY | 2017-02-10 09:29 | XMS REPORT ---
Author JORGE LUIS Valerio [facility] eClinicalWorks Address Unknown Phone Unavailable Care Team Providers Care Client Service Consultant Name Role Phone JORGE LUIS MCDANIEL CP Unavailable Allergies, Adverse Reactions, Alerts Substance Reaction Event Type Lunesta intolerant to taste Drug Allergy Cymbalta Info Not Available Drug Allergy Bactrim Info Not Available Drug Allergy Problems Problem Type Condition Code Onset Dates Condition Status Problem Right knee pain M25.561 Active Problem Anxiety F41.9 Active Problem Irritable bowel syndrome with diarrhea K58.0 Active Assessment Tendonitis M77.9 Active Assessment IBS (irritable bowel syndrome) K58.9 Active Problem Hypertension, benign I10 Active Assessment Arthritis M19.90 Active Medications Medication Code System Code Instructions Start Date End Date Status Dosage Betamethasone Valerate [facility] [address]-15 0.1 % 1 sky by Topical route 2 times per day Disp: 45g AndroGel [facility] [address]-70 50 MG/5GM Transdermal Once a day September 14, 2014 as directed Pristiq [facility] 07774306893 50 MG TAKE ONE TABLET BY MOUTH DAILY Sudafed [facility] [address]-56 30 MG Orally 4 times a day July 05, 2014 1 tablet as needed PredniSONE [facility] [address]-02 20 MG Orally 2 times a day Mar 27, 2015 Apr 06, 2015 1 tablet Meloxicam [facility] 52464376644 15 MG take 1 tablet (15 mg) by oral route once daily [place] [facility] [address]-33 7.5-325 MG Orally every 6 hrs April 27, 2014 take 1 tablet Neurontin [facility] 29902302699 400 MG Orally Three times a day 1 capsule Famotidine [facility] 91472325085 20 MG TAKE ONE TABLET BY MOUTH TWICE DAILY Xyzal [facility] 37545061041 5 MG TAKE ONE TABLET BY MOUTH DAILY Protonix [facility] 35407297411 40 MG TAKE ONE TABLET BY MOUTH DAILY Cyclobenzaprine HCl [facility] 83596973838 10 MG TAKE ONE TABLET BY MOUTH THREE TIMES DAILY NEEDED Lorazepam [facility] [address]-80 1 MG Orally three times a day April 27, 2014 1 Tablet Metoprolol Tartrate [facility] 28727396491 50 MG Orally Twice a day 1 tablet Procedures Procedure Coding System Code Date Office Visit, Est Pt., Level 3 CPT-4 28701 Mar 27, 2015 [facility] VISIT ESTABLISHED PATIENT CPT-4 G0467 Mar 27, 2015 Vital Signs Date/Time: Mar 27, 2015 Temperature 98.9 F Weight 250.0 lbs Height 73 in BMI 32.98 Index Blood Pressure Diastolic 88 mmHg Blood Pressure Systolic 140 mmHg Cardiac Monitoring Heart Rate 100 bpm Results No Known Results Summary Purpose eClinicalWorks Submission
--- OUTSIDE RECORDS SUMMARY | 2017-02-10 09:30 | XMS REPORT ---
Author Author JORGE LUIS MCDANIEL Organization [facility] Address [address] [place] [address] Care Team Providers Care Cyber Systems Operations Specialist Name Role Phone JORGE LUIS MCDANIEL Unavailable PROBLEMS Type Condition ICD9-CM Code [id number] Code Onset Dates Condition Status SNOMED Code Problem Hypertension, benign I10 Active 38093491 Problem Irritable bowel syndrome with diarrhea K58.0 Active 56589455 Problem Anxiety F41.9 Active 16136809 Problem Right knee pain M25.561 Active 24401099 Problem Hypotestosteronemia E29.1 Active 7430856304850 Problem Psoriasis L40.9 Active 2695434 Problem Neuropathy, idiopathic G60.9 Active 13011079 Problem Sore throat J02.9 Active 139155051 Problem Primary insomnia F51.01 Active 1811122 Problem Polyneuropathy G62.9 Active 65045801 ALLERGIES No Information SOCIAL HISTORY Never Assessed PLAN OF CARE VITAL SIGNS MEDICATIONS Medication Instructions Dosage Frequency Start Date End Date Duration Status Lorazepam 1 MG Orally 3 times a day 1 Tablet 8h Apr, 28 days Active Hydrocodone-Acetaminophen 10-325 MG Orally every 6 hrs 1 tablet as needed 6h Mar, 26 days Active RESULTS No Results PROCEDURES [...] 01/2013 Surgical History spinal fusion-cervical spine at [place] Hospitalization History [facility]acid reflux 07/2010 Hospitalization History [facility] cellulitis 2007
--- OUTSIDE RECORDS SUMMARY | 2017-02-10 09:30 | XMS REPORT ---
Author Author JORGE LUIS MCDANIEL [facility] Address [address] [place] [address] Care Team Providers Care Chest Painting And Sealing Supervisor Name Role Phone JORGE LUIS MCDANIEL Unavailable PROBLEMS Type Condition ICD9-CM Code [id number] Code Onset Dates Condition Status SNOMED Code Assessment Thoracic neuritis M54.14 June, Active 61753016 Assessment Folliculitis L73.9 June, Active 49864283 Problem Irritable bowel syndrome with diarrhea K58.0 Active 53852944 Problem Right knee pain M25.561 Active 45372597 Assessment Irritable bowel syndrome without diarrhea K58.9 June, Active 03960368 Assessment Sciatic nerve pain, right M54.31 June, Active 37417942 Problem Anxiety F41.9 Active 52821352 Problem Hypertension, benign I10 Active 33976088 ALLERGIES Substance Reaction Event Type Date Status Lunesta intolerant to taste Drug Allergy June, Active Cymbalta Unknown Drug Allergy June, Active Bactrim Unknown Drug Allergy June, Active SOCIAL HISTORY No smoking Hx information available PLAN OF CARE VITAL SIGNS Height 73 in 2015-07-17 Weight 238.3 lbs 2015-07-17 Heart Rate 96 bpm 2015-07-17 Respiratory Rate 20 2015-07-17 BMI 31.44 kg/m2 2015-07-17 Blood pressure systolic 122 mmHg 2015-07-17 Blood pressure diastolic 92 mmHg 2015-07-17 MEDICATIONS Medication Instructions Dosage Frequency Start Date End Date Duration Status Famotidine 20 mg 1 tablet 12h 30 Active Lorazepam 1 MG Orally three times a day 1 Tablet 8h Apr, as needed Active Clobetasol Propionate E 0.05 % Active Meloxicam 15 MG 1 tablet 24h 30 Active Xyzal 5 MG 1 tablet 24h 30 Active Sudafed 30 MG Orally 4 times a day 1 tablet as needed 6h June, Active Zofran 8 MG Orally Once a day 1 tablet 24h June, 30 day(s) Active Pristiq 50 mg 1 tablet 24h 30 Active Dicyclomine HCl 20 mg Orally Four times a day 1 tablet 6h June, Aug, 30 day(s) Active Protonix 40 mg 1 tablet 24h 30 Active Doxycycline Hyclate 100 MG Orally every 12 hrs 1 capsule 12h June, Jul, 10 days Active Metoprolol Tartrate 50 mg Orally Twice a day 1 tablet 12h 30 Active Cyclobenzaprine HCl 10 MG 1 tablet 8h 30 Active [place] 7.5-325 MG Orally every 6 hrs take 1 tablet 6h Apr, as needed Active Neurontin 600 MG Orally Three times a day 1 capsule 8h 30 Active RESULTS No Results PROCEDURES Procedure Date Ordered Related Diagnosis Body [facility] EST[facility] PATIENT July 17, 2015 Office Visit, Est Pt., Level 3 July 17, 2015 IMMUNIZATIONS No Known Immunizations
--- OUTSIDE RECORDS SUMMARY | 2017-02-10 09:30 | XMS REPORT ---
Author JORGE LUIS Valerio [facility] eClinicalWorks Address Unknown Phone Unavailable Care Team Providers Care Tape Edge Machine Operator Name Role Phone JORGE LUIS MCDANIEL CP Unavailable Allergies No Known Allergies Problems Problem Type Condition ICD-9 Code Onset [...] Start Date End Date Status Dosage Lorazepam [facility] [address]-55 1 MG Orally three times a day MUST KEEP 11/18/14 APPT April 27, 2014 1 Tablet Sudafed [facility] [address]-15 30 MG Orally 4 times a day MUST KEEP 11/18/14 APPT July 05, 2014 1 tablet as needed [place] [facility] [address]-72 7.5-325 MG Orally every 6 hrs MUST KEEP 11/18/14 APPT April 27, 2014 take 1 tablet AndroGel [facility] [address]-02 50 MG/5GM Transdermal Once a day MUST KEEP APPT September 14, 2014 as directed Results No Known Results Summary Purpose eClinicalWorks Submission
--- OUTSIDE RECORDS SUMMARY | 2017-02-10 09:30 | XMS REPORT ---
Author JORGE LUIS Valerio Organization eClinicalWorks Address Unknown Phone Unavailable Care Team Providers Care Chief Radiology Name Role Phone JORGE LUIS MCDANIEL CP Unavailable Allergies No Known Allergies Problems Problem Type Condition Code Onset Dates Condition Status Problem Right knee pain M25.561 Active Problem Anxiety F41.9 Active Problem Irritable bowel syndrome with diarrhea K58.0 Active Problem Hypertension, benign I10 Active Assessment Shoulder pain, right M25.511 Active Medications Medication Code System Code Instructions Start Date End Date Status Dosage Lorazepam [facility] [address]-92 1 MG Orally three times a day April 27, 2014 1 Tablet Sudafed [facility] [address]-35 30 MG Orally 4 times a day July 05, 2014 1 tablet as needed [place] [facility] [address]-36 7.5-325 MG Orally every 6 hrs April 27, 2014 take 1 tablet Results No Known Results Summary Purpose eClinicalWorks Submission
--- OUTSIDE RECORDS SUMMARY | 2017-02-10 09:30 | XMS REPORT ---
Author Author GRIFFIN ALEXIS [facility] eClinicalWorks Address Unknown Phone Unavailable Care Team Providers Care Macerator Operator Name Role Phone GRIFFIN ALEXIS Unavailable Allergies, Adverse Reactions, Alerts Substance Reaction Event Type Lunesta intolerant to taste Drug Allergy Cymbalta Info Not Available Drug Allergy Bactrim Info Not Available Drug Allergy Problems Problem Type Condition Code Onset Dates Condition Status Problem Anxiety F41.9 Active Problem Hypertension, benign I10 Active Problem Right knee pain M25.561 Active Assessment Acute bacterial sinusitis J01.90 Active Medications Medication Code System Code Instructions Start Date End Date Status Dosage Lorazepam [facility] [address]-63 1 MG Orally three times a day MUST KEEP 11/18/14 APPT April 27, 2014 1 Tablet Betamethasone Valerate [facility] [address]-83 0.1 % 1 sky by Topical route 2 times per day Disp: 45g Metoprolol Tartrate [facility] [address]-50 50 MG Orally Twice a day Dec 19, [address] [facility] 12496990016 50 MG TAKE ONE TABLET BY MOUTH DAILY AndroGel [facility] [address]-88 50 MG/5GM Transdermal Once a day September 14, 2014 as directed Xyzal [facility] 01371774109 5 MG TAKE ONE TABLET BY MOUTH DAILY Meloxicam [facility] 19434222978 15 MG take 1 tablet (15 mg) by oral route once daily Famotidine [facility] 94083748125 20 MG TAKE ONE TABLET BY MOUTH TWICE DAILY Cyclobenzaprine HCl [facility] 09765083733 10 MG TAKE ONE TABLET BY MOUTH THREE TIMES DAILY NEEDED Neurontin [facility] [address]-13 400 MG Orally Three times a day Oct 14, [address] [facility] [address]-93 875-125 MG Orally every 12 hrs Jan 21, 2015 Jan 31, [address] [facility] [address]-74 30 MG Orally 4 times a day July 05, 2014 1 tablet as needed [place] [facility] [address]-92 7.5-325 MG Orally every 6 hrs MUST KEEP 11/18/14 APPT April 27, 2014 take [address] [facility] 09097527605 40 MG TAKE ONE TABLET BY MOUTH DAILY Procedures Procedure Coding System Code Date [facility] VISIT ESTABLISHED PATIENT CPT-4 G0467 Jan 21, 2015 Office Visit, Est Pt., Level 3 CPT-4 40650 Jan 21, 2015 MEASURE BLOOD OXYGEN LEVEL CPT-4 90021 Jan 21, 2015 Vital Signs Date/Time: Jan 21, 2015 Temperature 97.8 F Weight 249 lbs Height 73 in Oximetry 97 % Blood Pressure Diastolic 80 mmHg Blood Pressure Systolic 118 mmHg Cardiac Monitoring Heart Rate 88 bpm BMI 32.85 Index Results No Known Results Summary Purpose eClinicalWorks Submission
--- OUTSIDE RECORDS SUMMARY | 2017-02-10 09:30 | XMS REPORT ---
Author JORGE LUIS Valerio Organization e[employer] Address Unknown Phone Unavailable Care Team Providers Care Independent Driver Name Role Phone JORGE LUIS MCDANIEL CP Unavailable Allergies No Known Allergies Problems Problem Type Condition Code Onset Dates Condition Status Problem Right knee pain M25.561 Active Problem Anxiety F41.9 Active Problem Irritable bowel syndrome with diarrhea K58.0 Active Problem Hypertension, benign I10 Active Medications Medication Code System Code Instructions Start Date End Date Status Dosage AndroGel [facility] [address]-85 50 MG/5GM Transdermal Once a day September 14, 2014 as directed Lorazepam [facility] [address]-87 1 MG Orally three times a day April 27, 2014 1 Tablet Sudafed [facility] [address]-78 30 MG Orally 4 times a day July 05, 2014 1 tablet as needed [place] [facility] [address]-68 7.5-325 MG Orally every 6 hrs April 27, 2014 take 1 tablet Results No Known Results Summary Purpose eClinicalWorks Submission
--- OUTSIDE RECORDS SUMMARY | 2017-02-10 09:30 | XMS REPORT ---
Author Author BRIANA SOLORZANO eClinicalWorks Address Unknown Phone Unavailable Care Team Providers Care Pack Mule Worker Name Role Phone BRIANA SOLORZANO CP Unavailable Allergies, Adverse Reactions, Alerts Substance Reaction Event Type Lunesta intolerant to taste Drug Allergy Cymbalta Info Not Available Drug Allergy Bactrim Info Not Available Drug Allergy Problems Problem Type Condition Code Onset Dates Condition Status Problem Irritable bowel syndrome with diarrhea K58.0 Active Problem Right knee pain M25.561 Active Problem Sore throat J02.9 Active Assessment Sore throat J02.9 Active Problem Anxiety F41.9 Active Problem Hypertension, benign I10 Active Medications Medication Code System Code Instructions Start Date End Date Status Dosage Dicyclomine HCl [facility] [address]-12 20 mg Orally Four times a day July 17, 2015 September 15, 2015 1 tablet Famotidine [facility] [address]-61 20 mg 2 times a day 1 tablet Metoprolol Tartrate [facility] [address]-74 50 mg Orally Twice a day 1 tablet Cyclobenzaprine HCl [facility] 26703515349 10 MG Three times a day 1 tablet Lorazepam [facility] [address]-47 1 MG Orally three times a day April 27, 2014 1 Tablet Amoxicillin [facility] [address]-94 875 MG Orally every 12 hrs September 15, 2015 Sep 25, 2015 1 tablet Pristiq [facility] [address]-38 50 mg Once a day 1 tablet Sudafed [facility] [address]-29 30 MG Orally 4 times a day July 05, 2014 1 tablet as needed Hydrocodone-Acetaminophen [facility] 02581317403 7.5-325 MG TAKE ONE TABLET BY MOUTH EVERY 6 HOURS NEEDED [place] [address] Sinus & Cough [facility] 12744-52287 10-5-325 MG Orally every 4 hrs 2 capsules as needed Clobetasol Propionate E [facility] [address]-17 0.05 % Externally not defined Neurontin [facility] [address]-27 600 MG Orally Three times a day 1 capsule Meloxicam [facility] [address]-34 15 MG Once a day 1 tablet Protonix [facility] [address]-48 40 mg Once a day 1 tablet Xyzal [facility] [address]-78 5 MG Once a day 1 tablet Zofran [facility] [address]-24 8 MG Orally Once a day July 17, 2015 1 tablet Procedures Procedure Coding System Code Date COUNT INCLUDES THE [facility] VISIT ESTABLISHED PATIENT CPT-4 G0467 September 15, 2015 Office Visit, Est Pt., Level 3 CPT-4 30634 September 15, 2015 STREP A ASSAY W/OPTIC CPT-4 07910 September 15, 2015 Vital Signs Date/Time: September 15, 2015 Cardiac Monitoring Heart Rate 110 bpm Weight 237.0 lbs Height 73 in Blood Pressure Diastolic 90 mmHg Blood Pressure Systolic 122 mmHg Results No Known Results Summary Purpose eClinicalWorks Submission
--- OUTSIDE RECORDS SUMMARY | 2017-02-10 09:30 | XMS REPORT ---
Author Author JORGE LUIS MCDANIEL [facility] Address [address] [place] [address] Care Team Providers Care Sat Math Tutor Name Role Phone JORGE LUIS MCDANIEL Unavailable PROBLEMS Type Condition ICD9-CM Code GUT16-IA Code Onset Dates Condition Status SNOMED Code Problem Anxiety F41.9 Active 61504787 Problem Irritable bowel syndrome with diarrhea K58.0 Active 10467030 Problem Right knee pain M25.561 Active 78035992 Problem Hypertension, benign I10 Active 22524181 Problem Hypotestosteronemia E29.1 Active 1484424034803 Problem Psoriasis L40.9 Active 5655920 Problem Neuropathy, idiopathic G60.9 Active 25984930 Problem Sore throat J02.9 Active 183872014 Problem Primary insomnia F51.01 Active 7098585 Problem Polyneuropathy G62.9 Active 15332678 ALLERGIES Unknown Allergies SOCIAL HISTORY No smoking Hx information available PLAN OF CARE VITAL SIGNS MEDICATIONS Medication Instructions Dosage Frequency Start Date End Date Duration Status Lorazepam 1 MG Orally 3 times a day 1 Tablet 8h Apr, 28 days Active RESULTS No Results PROCEDURES No Known procedures IMMUNIZATIONS No Known Immunizations
--- OUTSIDE RECORDS SUMMARY | 2017-02-10 09:30 | XMS REPORT ---
Author Author JORGE LUIS MCDANIEL Organization [facility] Address [address] [place] [address] Care Team Providers Care Machine Adjuster Leader Case Trim Name Role Phone JORGE LUIS MCDANIEL Unavailable PROBLEMS Type Condition ICD9-CM Code [id number]-LX Code Onset Dates Condition Status SNOMED Code Problem Sore throat J02.9 Active 509415581 Problem Polyneuropathy G62.9 Active 16314463 Problem Neuropathy, idiopathic G60.9 Active 58140068 Problem Right knee pain M25.561 Active 53089405 Problem Hypertension, benign I10 Active 34989467 Problem Anxiety F41.9 Active 33958844 Problem Irritable bowel syndrome with diarrhea K58.0 Active 86127188 Problem Lumbar disc disease M51.9 Active 92282685 Problem Lumbar disc disease with radiculopathy M51.16 Active 366934615 Problem Psoriasis L40.9 Active 3318362 Problem Primary insomnia F51.01 Active 2911003 Problem Cervical disc disease with myelopathy M50.00 Active 99302809 Problem Hypotestosteronemia E29.1 Active 6041986081644 ALLERGIES No Information SOCIAL HISTORY Never Assessed [...] 01/2013 Surgical History spinal fusion-cervical spine at [place] Hospitalization History [facility] 07/2010 Hospitalization History [facility] cell[facility]itis 2007
--- OUTSIDE RECORDS SUMMARY | 2017-02-10 09:30 | XMS REPORT ---
Author JORGE LUIS Valerio Organization [employer] Address Unknown Phone Unavailable Care Team Providers Care Senior Label Specialist Name Role Phone JORGE LUIS MCDANIEL CP Unavailable Allergies No Known Allergies Problems Problem Type Condition Code Onset Dates Condition Status Problem Anxiety F41.9 Active Problem Hypertension, benign I10 Active Problem Right knee pain M25.561 Active Medications Medication Code System Code Instructions Start Date End Date Status Dosage [place] [facility] [address]-57 7.5-325 MG Orally every 6 hrs April 27, 2014 take 1 tablet AndroGel [facility] [address]-01 50 MG/5GM Transdermal Once a day September 14, 2014 as directed Results No Known Results Summary Purpose eClinicalWorks Submission
--- OUTSIDE RECORDS SUMMARY | 2017-02-10 09:30 | XMS REPORT ---
Author JORGE LUIS Valerio Organization [employer] Address Unknown Phone Unavailable Care Team Providers Care Rn Sexual Assault Name Role Phone JORGE LUIS MCDANIEL CP Unavailable Allergies No Known Allergies Problems Problem Type Condition Code Onset Dates Condition Status Problem Irritable bowel syndrome with diarrhea K58.0 Active Problem Right knee pain M25.561 Active Problem Sore throat J02.9 Active Problem Anxiety F41.9 Active Problem Hypertension, benign I10 Active Medications Medication Code System Code Instructions Start Date End Date Status Dosage Duloxetine HCl [facility] [address]-69 60 mg Orally Once a day Oct 24, 2015 1 capsule Results No Known Results Summary Purpose eClinicalWorks Submission
--- OUTSIDE RECORDS SUMMARY | 2017-02-10 09:30 | XMS REPORT ---
Author Author GRIFFIN ALEXIS [facility] eClinicalWorks Address Unknown Phone Unavailable Care Team Providers Care Doctor Of Chiropractic Name Role Phone GRIFFIN ALEXIS Unavailable Allergies, Adverse Reactions, Alerts Substance Reaction Event Type Lunesta intolerant to taste Drug Allergy Cymbalta Info Not Available Drug Allergy Bactrim Info Not Available Drug Allergy Problems Problem Type Condition Code Onset Dates Condition Status Problem Anxiety F41.9 Active Problem Hypertension, benign I10 Active Problem Right knee pain M25.561 Active Assessment Encounter for immunization Z23 Active Assessment Puncture wound T14.8 Active Medications Medication Code System Code Instructions Start Date End Date Status Dosage Sudafed [facility] [address]-89 30 MG Orally 4 times a day July 05, 2014 1 tablet as needed Betamethasone Valerate [facility] [address]-33 0.1 % 1 sky by Topical route 2 times per day Disp: 45g Protonix [facility] 02330335194 40 MG TAKE ONE TABLET BY MOUTH DAILY Keflex [facility] [address]-20 500 MG Orally Twice a day Jan 08, 2015 Jan 18, 2015 1 capsule [place] [facility] [address]-23 7.5-325 MG Orally every 6 hrs MUST KEEP 11/18/14 APPT April 27, 2014 take 1 tablet Xyzal [facility] 56118465612 5 MG TAKE ONE TABLET BY MOUTH DAILY Pristiq [facility] 39210713213 50 MG TAKE ONE TABLET BY MOUTH DAILY Neurontin [facility] [address]-68 400 MG Orally Three times a day Oct 14, 2014 1 capsule Metoprolol Tartrate [facility] [address]-31 50 MG Orally Twice a day Dec 19, 2014 1 tablet Famotidine [facility] 25146807792 20 MG TAKE ONE TABLET BY MOUTH TWICE DAILY Meloxicam [facility] 77988094499 15 MG take 1 tablet (15 mg) by oral route once daily Lorazepam [facility] [address]-96 1 MG Orally three times a day MUST KEEP 11/18/14 APPT April 27, 2014 1 Tablet AndroGel [facility] [address]-21 50 MG/5GM Transdermal Once a day September 14, 2014 as directed Cyclobenzaprine HCl [facility] 61827712687 10 MG TAKE ONE TABLET BY MOUTH THREE TIMES DAILY NEEDED Procedures Procedure Coding System Code Date Office Visit, Est Pt., Level 3 CPT-4 98194 Jan 08, 2015 TDAP (BOOSTRIX) CPT-4 66804 Jan 08, 2015 [facility] VISIT ESTABLISHED PATIENT CPT-4 G0467 Jan 08, 2015 SINGLE IMMUNIZATION ADMIN CPT-4 66041 Jan 08, 2015 Vital Signs Date/Time: Jan 08, 2015 Temperature 97.9 F Weight 249 lbs Height 73 in BMI 32.85 Index Blood Pressure Diastolic 82 mmHg Blood Pressure Systolic 124 mmHg Cardiac Monitoring Heart Rate 82 bpm Results No Known Results Immunizations Vaccine Administration Date TDAP (BOOSTRIX) Jan 08, 2015 Summary Purpose eClinicalWorks Submission
--- OUTSIDE RECORDS SUMMARY | 2017-02-10 09:31 | XMS REPORT ---
Author Author JORGE LUIS MCDANIEL Organization [facility] Address [address] [place] [address] Care Team Providers Care Unit Leader Name Role Phone JORGE LUIS MCDANIEL Unavailable PROBLEMS Type Condition ICD9-CM Code JUH02-NU Code Onset Dates Condition Status SNOMED Code Problem Sore throat J02.9 Active 474665055 Problem Polyneuropathy G62.9 Active 98263953 Problem Neuropathy, idiopathic G60.9 Active 28363410 Problem Right knee pain M25.561 Active 04508556 Problem Hypertension, benign I10 Active 70151906 Problem Anxiety F41.9 Active 30638735 Problem Irritable bowel syndrome with diarrhea K58.0 Active 80763917 Problem Lumbar disc disease M51.9 Active 37655382 Problem Lumbar disc disease with radiculopathy M51.16 Active 306402746 Problem Psoriasis L40.9 Active 7081569 Problem Primary insomnia F51.01 Active 4942228 Problem Cervical disc disease with myelopathy M50.00 Active 41495808 Problem Hypotestosteronemia E29.1 Active 3711626757869 ALLERGIES No Information SOCIAL HISTORY Never Assessed PLAN OF CARE VITAL SIGNS MEDICATIONS Medication Instructions Dosage Frequency Start Date End Date Duration Status Hydrocodone-Acetaminophen 10-325 MG Orally every 6 hrs 1 tablet as needed 6h June, 26 days Active Lorazepam 1 MG Orally 3 times [...] 01/2013 Surgical History spinal fusion-cervical spine at [place] Hospital[facility] Hospital[facility] History [facility] cell[facility] 2008
--- OUTSIDE RECORDS SUMMARY | 2017-02-10 09:31 | XMS REPORT ---
Author Author JORGE LUIS MCDANIEL Organization eClinicalWorks Address Unknown Phone Unavailable Care Team Providers Care Job Putter Up And Ticket Preparer Name Role Phone JORGE LUIS MCDANIEL CP Unavailable Allergies No Known Allergies Problems Problem Type Condition Code Onset Dates Condition Status Problem Anxiety F41.9 Active Problem Hypertension, benign I10 Active Problem Right knee pain M25.561 Active Medications Medication Code System Code Instructions Start Date End Date Status Dosage [place] [facility] [address]-73 7.5-325 MG Orally every 6 hrs April 27, 2014 take 1 tablet Sudafed [facility] [address]-39 30 MG Orally 4 times a day July 05, 2014 1 tablet as needed AndroGel [facility] [address]-39 50 MG/5GM Transdermal Once a day September 14, 2014 as directed Results No Known Results Summary Purpose eClinicalWorks Submission
--- OUTSIDE RECORDS SUMMARY | 2017-02-10 09:31 | XMS REPORT ---
Author JORGE LUIS Valerio [facility] eClinicalWorks Address Unknown Phone Unavailable Care Team Providers Care Kennel Technician Name Role Phone JORGE LUIS MCDANIEL CP Unavailable Allergies, Adverse Reactions, Alerts Substance Reaction Event Type Lunesta intolerant to taste Drug Allergy Cymbalta Info Not Available Drug Allergy Bactrim Info Not Available Drug Allergy Problems Problem Type Condition Code Onset Dates Condition Status Problem Right knee pain M25.561 Active Problem Anxiety F41.9 Active Problem Irritable bowel syndrome with diarrhea K58.0 Active Assessment Hot flashes N95.1 Active Assessment Tachycardia R00.0 Active Problem Hypertension, benign I10 Active Assessment Nausea with vomiting, unspecified R11.2 Active Medications Medication Code System Code Instructions Start Date End Date Status Dosage Clobetasol Propionate E [facility] [address]-41 0.05 % Externally not defined Pristiq [facility] [address]-08 50 mg Once a day 1 tablet Lorazepam [facility] [address]-70 1 MG Orally three times a day April 27, 2014 1 Tablet Dicyclomine HCl [facility] [address]-46 20 mg Orally Four times a day July 17, 2015 September 15, 2015 1 tablet Sudafed [facility] [address]-08 30 MG Orally 4 times a day July 05, 2014 1 tablet as needed Meloxicam [facility] [address]-55 15 MG Once a day 1 tablet Hydrocodone-Acetaminophen [facility] 93397428949 7.5-325 MG TAKE ONE TABLET BY MOUTH EVERY 6 HOURS NEEDED Yulia-[address] [place] [address] Sinus & Cough [facility] [address]-30426 10-5-325 MG Orally every 4 hrs 2 capsules as needed Zofran [facility] [address]-52 8 MG Orally Once a day July 17, 2015 1 tablet Neurontin [facility] [address]-57 600 MG Orally Three times a day 1 capsule Protonix [facility] [address]-80 40 mg Once a day 1 tablet Cyclobenzaprine HCl [facility] 73882626986 10 MG Three times a day 1 tablet Famotidine [facility] [address]-05 20 mg 2 times a day 1 tablet Metoprolol Tartrate [facility] [address]-12 50 mg Orally Twice a day 1 tablet Xyzal [facility] [address]-42 5 MG Once a day 1 tablet Procedures Procedure Coding System Code Date Office Visit, Est Pt., Level 3 CPT-4 51340 September 14, 2015 [facility] C[facility]-4 NOBLL September 14, 2015 [facility] VISIT ESTABLISHED PATIENT CPT-4 G0467 September 14, 2015 VENIPTAMMY, ROUTINE* CPT-4 21932 September 14, 2015 Vital Signs Date/Time: September 14, 2015 Cardiac Monitoring Heart Rate 104 bpm Weight 237.8 lbs Height 73 in Blood Pressure Diastolic 80 mmHg Blood Pressure Systolic 160 mmHg Results No Known Results Summary Purpose eClinicalWorks Submission
--- OUTSIDE RECORDS SUMMARY | 2017-02-10 09:31 | XMS REPORT ---
Author JORGE LUIS Valerio [facility] eClinicalWorks Address Unknown Phone Unavailable Care Team Providers Care Engineering Geologist Name Role Phone JORGE LUIS MCDANIEL CP Unavailable Allergies, Adverse Reactions, Alerts Substance Reaction Event Type Lunesta intolerant to taste Drug Allergy Cymbalta Info Not Available Drug Allergy Bactrim Info Not Available Drug Allergy Problems Problem Type Condition Code Onset Dates Condition Status Assessment Tendonitis M77.9 Active Problem Right knee pain M25.561 Active Problem Anxiety F41.9 Active Problem Irritable bowel syndrome with diarrhea K58.0 Active Assessment Lumbago M54.5 Active Assessment Common wart B07.8 Active Problem Hypertension, benign I10 Active Assessment Sciatica of right side M54.31 Active Medications Medication Code System Code Instructions Start Date End Date Status Dosage Protonix [facility] [address]-46 40 mg Once a day 1 tablet Famotidine [facility] [address]-40 20 mg 2 times a day 1 tablet Cyclobenzaprine HCl [facility] [address]-77 10 MG Three times a day 1 tablet Clobetasol Propionate E [facility] [address]-57 0.05 % Externally not defined Xyzal [facility] [address]-38 5 MG Once a day 1 tablet [place] [facility] [address]-04 7.5-325 MG Orally every 6 hrs April 27, 2014 take 1 tablet Lorazepam [facility] [address]-16 1 MG Orally three times a day April 27, 2014 1 Tablet Metoprolol Tartrate [facility] [address]-93 50 mg Orally Twice a day 1 tablet Pristiq [facility] [address]-40 50 mg Once a day 1 tablet Neurontin [facility] [address]-26 400 MG Three times a day 1 capsule Sudafed [facility] [address]-39 30 MG Orally 4 times a day July 05, 2014 1 tablet as needed PredniSONE [facility] [address]-18 20 mg Orally Once a day June 19, 2015Nov 1 tablet Meloxicam [facility] [address]-71 15 MG Once a day 1 tablet Procedures Procedure Coding System Code Date Office Visit, Est Pt., Level 3 CPT-4 75845 June 19, 2015 [facility] VISIT ESTABLISHED PATIENT CPT-4 G0467 June 19, 2015 Vital Signs Date/Time: June 19, 2015 Temperature 98.3 F Weight 238.0 lbs Height 73 in BMI 31.40 Index Blood Pressure Diastolic 90 mmHg Blood Pressure Systolic 125 mmHg Cardiac Monitoring Heart Rate 88 bpm Results No Known Results Summary Purpose eClinicalWorks Submission
--- OUTSIDE RECORDS SUMMARY | 2017-02-10 09:31 | XMS REPORT ---
Author JORGE LUIS Valerio [facility] eClinicalWorks Address Unknown Phone Unavailable Care Team Providers Care Manager Administration Name Role Phone JORGE LUIS MCDANIEL CP [...] Active Problem Hypertension, benign I10 Active Assessment Common wart B07.8 Active Medications Medication Code System Code Instructions Start Date End Date Status Dosage Sudafed [facility] [address]-68 30 MG Orally 4 times a day July 05, 2014 1 tablet as needed Meloxicam [facility] [address]-52 15 MG Once a day 1 tablet Xyzal [facility] 39063555048 5 MG TAKE ONE TABLET BY MOUTH DAILY Cyclobenzaprine HCl [facility] [address]-01 10 MG Three times a day 1 tablet Pristiq [facility] [address]-91 50 mg Once a day 1 tablet [place] [facility] [address]-94 7.5-325 MG Orally every 6 hrs April 27, 2014 take 1 tablet Lorazepam [facility] [address]-58 1 MG Orally three times a day April 27, 2014 1 Tablet Protonix [facility] 34756004569 40 MG TAKE ONE TABLET BY MOUTH DAILY Neurontin [facility] [address]-06 400 MG Three times a day 1 capsule Famotidine [facility] 60143787506 20 MG TAKE ONE TABLET BY MOUTH TWICE DAILY Metoprolol Tartrate [facility] [address]-15 50 mg Orally Twice a day 1 tablet Betamethasone Valerate [facility] 35773852773 0.1 % 1 sky by Topical route 2 times per day Disp: 45g Procedures Procedure Coding System Code Date CRYOTHERAPY OF SKIN CPT-4 85920 June 13, 2015 Vital Signs Date/Time: June 13, 2015 Temperature 97.8 F Weight 241.5 lbs Height 73 in BMI 31.86 Index Blood Pressure Diastolic 94 mmHg Blood Pressure Systolic 136 mmHg Cardiac Monitoring Heart Rate 92 bpm Results Name Result Date Reference Range Unit Abnormality Flag CRYOTHERAPY OF SKIN Summary Purpose eClinicalWorks Submission
--- OUTSIDE RECORDS SUMMARY | 2017-02-10 09:31 | XMS REPORT ---
Author Author JORGE LUIS MCDANIEL Organization [facility] Address [address] [place] [address] Care Team Providers Care Kitchen Work Supervisor Name Role Phone JORGE LUIS MCDANIEL Unavailable PROBLEMS Type Condition ICD9-CM Code MCV55-DW Code Onset Dates Condition Status SNOMED Code Problem Sore throat J02.9 Active 589768765 Problem Polyneuropathy G62.9 Active 84549417 Problem Neuropathy, idiopathic G60.9 Active 95450155 Problem Right knee pain M25.561 Active 61569108 Problem Hypertension, benign I10 Active 80018706 Problem Anxiety F41.9 Active 13533419 Problem Irritable bowel syndrome with diarrhea K58.0 Active 48501800 Problem Lumbar disc disease M51.9 Active 82960215 Problem Lumbar disc disease with radiculopathy M51.16 Active 264399518 Problem Psoriasis L40.9 Active 0063370 Problem Primary insomnia F51.01 Active 6831998 Problem Cervical disc disease with myelopathy M50.00 Active 57548611 Problem Hypotestosteronemia E29.1 Active 5761513503353 ALLERGIES No Information SOCIAL HISTORY Never Assessed PLAN OF CARE Activity Details Follow Up 4 Weeks Reason: VITAL SIGNS MEDICATIONS Unknown Medications RESULTS No Results PROCEDURES Procedure Date Ordered Result Body Site TESTOSTERONE (PT'S OWN) May 10, 2016 THER/PROPH/DIAG INJ, SC/IM May 10, 2016 IMMUNIZATIONS Vaccine Route Administration Date Status TESTOSTERONE (PT'S OWN) IM Intramuscular May 10, 2016 Administered MEDICAL (GENERAL) HISTORY Type Description Date Medical [...] 01/2013 Surgical History spinal fusion-cervical spine at [place] Hospitalization [facility] 07/2010 Hospitalization History [facility] cellulitis 2008
--- OUTSIDE RECORDS SUMMARY | 2017-02-10 09:31 | XMS REPORT ---
Author Author JORGE LUIS MCDANIEL Organization [facility] Address [address] [place] [address] Care Team Providers Care Pneumatic Tube Operator Name Role Phone JORGE LUIS MCDANIEL Unavailable PROBLEMS Type Condition ICD9-CM Code KLQ77-IS Code Onset Dates Condition Status SNOMED Code Problem Sore throat J02.9 Active 818001476 Problem Polyneuropathy G62.9 Active 56827882 Problem Neuropathy, idiopathic G60.9 Active 69685150 Problem Right knee pain M25.561 Active 79428245 Problem Hypertension, benign I10 Active 67698807 Problem Anxiety F41.9 Active 06830964 Problem Irritable bowel syndrome with diarrhea K58.0 Active 60225917 Problem Lumbar disc disease M51.9 Active 36133822 Problem Lumbar disc disease with radiculopathy M51.16 Active 389863945 Problem Psoriasis L40.9 Active 5710746 Problem Primary insomnia F51.01 Active 9139764 Problem Cervical disc disease with myelopathy M50.00 Active 82563011 Problem Hypotestosteronemia E29.1 Active 2073785775112 ALLERGIES No Information SOCIAL HISTORY Never Assessed PLAN OF CARE VITAL SIGNS MEDICATIONS Medication Instructions Dosage Frequency Start Date End Date Duration Status Depo-Testosterone 100 MG/ML Intramuscular once monthly 1 ml Apr, 1 dose Active RESULTS No Results PROCEDURES No Known [...] 01/2013 Surgical History spinal fusion-cervical spine at [place] Hospitalization [facility] 07/2010 Hospitalization History [facility] cell[facility] 2007
--- OUTSIDE RECORDS SUMMARY | 2017-02-10 09:31 | XMS REPORT ---
Author JORGE LUIS Valerio [facility], [place] eClinicalWorks Address Unknown Phone Unavailable Care Team Providers Care Golf Course Mechanic Name Role Phone JORGE LUIS MCDANIEL CP Unavailable Allergies, Adverse Reactions, Alerts Substance Reaction Event Type Lunesta intolerant to taste Drug Allergy Cymbalta Info Not Available Drug Allergy Bactrim Info Not Available Drug Allergy Problems Problem Type Condition Code Onset Dates Condition Status Assessment Acute sinusitis, unspecified J01.90 Active Problem Sore throat J02.9 Active Problem Irritable bowel syndrome with diarrhea K58.0 Active Problem Neuropathy, idiopathic G60.9 Active Problem Hypertension, benign I10 Active Assessment Aphthous ulcer K12.0 Active Problem Right knee pain M25.561 Active Problem Anxiety F41.9 Active Medications Medication Code System Code Instructions Start Date End Date Status Dosage Clobetasol Propionate E [facility] [address]-62 0.05 % Externally Twice a day 1 application to affected area Cyclobenzaprine HCl [facility] [address]-98 10 mg Three times a day 1 tablet Protonix [facility] [address]-52 40 mg Once a day 1 tablet Magic Mouthwash ND 0 30 ML each of 2% Viscous Lidocaine/Maalox/Benadryl Oral Swish and Spit 4 times daily Jan 14, 2016 Jan 28, 2016 10 ml Neurontin [facility] [address]-94 800 MG Orally Three times a day 1 capsule Metoprolol Tartrate [facility] [address]-76 50 mg Orally Twice a day 1 tablet Dicyclomine HCl [facility] [address]-83 20 mg Orally Four times a day 1 tablet Venlafaxine HCl ER [facility] [address]-32 75 MG Orally Once a day Jan 02, 2016 1 capsule with food Lorazepam [facility] [address]-57 1 MG Orally 3 times a day April 27, 2014 1 Tablet Doxepin HCl [facility] [address]-98 25 MG Orally Once a day Dec 28, 2015 1 capsule at bedtime Hydrocodone-Acetaminophen [facility] 20895553625 7.5-325 MG Orally every 6 hrs Jan 25, 2016 1 tablet Famotidine [facility] [address]-06 20 mg 2 times a day 1 tablet Xyzal [facility] [address]-99 5 mg Once a day 1 tablet Zofran [facility] [address]-56 8 MG Orally Once a day July 17, 2015 1 tablet Azithromycin [facility] [address]-13 250 MG Orally Once a day Jan 14, 2016 Jan 19, 2016 2 tablets on the first day, then 1 tablet daily for 4 days PredniSONE [facility] [address]-27 20 mg Orally Once a day Jan 17, 2016 Jan 22, 2016 2 tablets Meloxicam [facility] [address]-78 15 MG Once a day 1 tablet Sudafed [facility] [address]-34 30 MG Orally 4 times a day July 05, 2014 1 tablet as needed Procedures Procedure Coding System Code Date Office Visit, Est Pt., Level 3 CPT-4 05708 Jan 17, 2016 [facility] VISIT ESTABLISHED PATIENT CPT-4 G0467 Jan 17, 2016 Vital Signs Date/Time: Jan 17, 2016 Cardiac Monitoring Heart Rate 88 bpm Weight 240.8 lbs Height 73 in BMI 31.77 Index Blood Pressure Diastolic 78 mmHg Blood Pressure Systolic 124 mmHg Results No Known Results Summary Purpose eClinicalWorks Submission
--- OUTSIDE RECORDS SUMMARY | 2017-02-10 09:31 | XMS REPORT ---
Author Author JORGE LUIS MCDANIEL [facility] eClinicalWorks Address Unknown Phone Unavailable Care Team Providers Care Water Leak Repairer Name Role Phone JORGE LUIS MCDANIEL CP [...] Instructions Start Date End Date Status Dosage Toprol XL [facility] [address]-18 25 MG Orally Once a day Dec 06, 2014 1 tablet Results No Known Results Summary Purpose eClinicalWorks Submission
--- OUTSIDE RECORDS SUMMARY | 2017-02-10 09:31 | XMS REPORT ---
Author Author JORGE LUIS MCDANIEL [facility] Address [address] [place] [address] Care Team Providers Care Cosmetic Counselor Name Role Phone JORGE LUIS MCDANIEL Unavailable PROBLEMS Type Condition ICD9-CM Code [id number] Code Onset Dates Condition Status SNOMED Code Problem Hypertension, benign I10 Active 64822848 Problem Irritable bowel syndrome with diarrhea K58.0 Active 63561633 Problem Anxiety F41.9 Active 06684973 Problem Right knee pain M25.561 Active 91846059 Problem Hypotestosteronemia E29.1 Active 2476771023171 Problem Psoriasis L40.9 Active 0937804 Problem Neuropathy, idiopathic G60.9 Active 86152884 Problem Sore throat J02.9 Active 207546360 Problem Primary insomnia F51.01 Active 2813823 Problem Polyneuropathy G62.9 Active 71138983 ALLERGIES Unknown Allergies SOCIAL HISTORY No smoking Hx information available PLAN OF CARE VITAL SIGNS MEDICATIONS Medication Instructions Dosage Frequency Start Date End Date Duration Status Hydrocodone-Acetaminophen 10-325 MG Orally every 6 hrs 1 tablet as needed 6h Feb, Mar, 26 days Active RESULTS No Results PROCEDURES No Known procedures IMMUNIZATIONS No Known Immunizations
--- OUTSIDE RECORDS SUMMARY | 2017-02-10 09:32 | XMS REPORT | Continuity of Care Document ---
Author Author [facility] Address Unknown Phone Unavailable Allergies Active Description Code Type Severity Reaction Onset Reported/Identified Relationship to Patient Clinical Status Yes bactrim Drug Allergy 01/24/2012 Yes sulfamethoxazole [id number] Drug Allergy Unknown N/A 01/01/2013 Yes trimethoprim [id number] Drug Allergy Unknown N/A 01/01/2013 Medications There is no data. Problems Date Dx Coded Attending Type Code Diagnosis Diagnosed By 01/24/2012 257.2 OTHER TESTICULAR HYPOFUNCTION 01/24/2012 338.29 OTHER CHRONIC PAIN 01/24/2012 530.81 ESOPHAGEAL REFLUX 01/24/2012 564.1 IRRITABLE BOWEL SYNDROME 01/24/2012 V58.69 LONG-TERM ( CURRENT) USE OF OTHER MEDICATIONS 01/24/2012 V70.0 ROUTINE GENERAL MEDICAL EXAMINATION AT A HEALTH CARE FACILITY 01/24/2012 257.2 OTHER TESTICULAR HYPOFUNCTION 01/24/2012 338.29 OTHER CHRONIC PAIN 01/24/2012 530.81 ESOPHAGEAL REFLUX 01/24/2012 564.1 IRRITABLE BOWEL SYNDROME 01/24/2012 V58.69 LONG-TERM ( CURRENT) USE OF OTHER MEDICATIONS 01/24/2012 V70.0 ROUTINE GENERAL MEDICAL EXAMINATION AT A HEALTH CARE FACILITY 01/24/2012 257.2 OTHER TESTICULAR HYPOFUNCTION 01/24/2012 338.29 OTHER CHRONIC PAIN 01/24/2012 530.81 ESOPHAGEAL REFLUX 01/24/2012 564.1 IRRITABLE BOWEL SYNDROME 01/24/2012 V58.69 LONG-TERM ( CURRENT) USE OF OTHER MEDICATIONS 01/24/2012 V70.0 ROUTINE GENERAL MEDICAL EXAMINATION AT A HEALTH CARE FACILITY 01/24/2012 CECILIA BOGGS PA-C 257.2 OTHER TESTICULAR HYPOFUNCTION 01/24/2012 CECILIA BOGGS PA-C 338.29 OTHER CHRONIC PAIN 01/24/2012 CECILIA BOGGS PA-C 530.81 ESOPHAGEAL REFLUX 01/24/2012 CECILIA BOGGS PA-C 564.1 IRRITABLE BOWEL SYNDROME 01/24/2012 CECILIA BOGGS PA-C V58.69 LONG-TERM (CURRENT) USE OF OTHER MEDICATIONS 01/24/2012 CECILIA BOGGS PA-C V70.0 ROUTINE GENERAL MEDICAL EXAMINATION AT A HEALTH CARE FACILITY 01/24/2012 CLARISSE AQUINO DO K 257.2 HYPOGONADISM 01/24/2012 CLARISSE AQUINO DO K 338.29 CHRONIC PAIN 01/24/2012 DILAN AQUINO DOA K 530.81 ESOPHAGEAL REFLUX 01/24/2012 DILAN AQUNIO DOA K 564.1 IRRITABLE BOWEL SYNDROME 01/24/2012 DILAN AQUINO DOA K V58.69 taking high-risk medication 01/24/2012 DILAN AQUINO DOA K V70.0 ROUTINE GENERAL MEDICAL EXAMINATION AT A HEALTH CARE FACILITY 01/24/2012 257.2 HYPOGONADISM 01/24/2012 338.29 CHRONIC PAIN 01/24/2012 530.81 ESOPHAGEAL REFLUX 01/24/2012 564.1 IRRITABLE BOWEL SYNDROME 01/24/2012 V58.69 taking high- risk medication 01/24/2012 V70.0 ROUTINE GENERAL MEDICAL EXAMINATION AT A HEALTH CARE FACILITY 01/24/2012 257.2 HYPOGONADISM 01/24/2012 338.29 CHRONIC PAIN 01/24/2012 530.81 ESOPHAGEAL REFLUX 01/24/2012 564.1 IRRITABLE BOWEL SYNDROME 01/24/2012 V58.69 taking high- risk medication 01/24/2012 V70.0 ROUTINE GENERAL MEDICAL EXAMINATION AT A HEALTH CARE FACILITY 01/24/2012 257.2 HYPOGONADISM 01/24/2012 338.29 CHRONIC PAIN 01/24/2012 530.81 ESOPHAGEAL REFLUX 01/24/2012 564.1 IRRITABLE BOWEL SYNDROME 01/24/2012 V58.69 taking high- risk medication 01/24/2012 V70.0 ROUTINE GENERAL MEDICAL EXAMINATION AT A HEALTH CARE FACILITY 01/24/2012 CLARISSE AQUINO DO K 257.2 HYPOGONADISM 01/24/2012 DILAN AQUINO DOA K 338.29 CHRONIC PAIN 01/24/2012 DILAN AQUINO DOA K 530.81 ESOPHAGEAL REFLUX 01/24/2012 DILAN AQUINO DOA K 564.1 IRRITABLE BOWEL SYNDROME 01/24/2012 DILAN AQUINO DOA K V58.69 taking high-risk medication 01/24/2012 DILAN AQUINO DOA K V70.0 ROUTINE GENERAL MEDICAL EXAMINATION AT A HEALTH CARE FACILITY 01/24/2012 MAURO MEDINA APRN 257.2 HYPOGONADISM 01/24/2012 MAURO MEDINA APRN 338.29 CHRONIC PAIN 01/24/2012 MAURO MEDINA APRN 530.81 ESOPHAGEAL REFLUX 01/24/2012 MAURO MEDINA APRN 564.1 IRRITABLE BOWEL SYNDROME 01/24/2012 MAURO MEDINA APRN V58.69 taking high-risk medication 01/24/2012 MAURO MEDINA APRN V70.0 ROUTINE GENERAL MEDICAL EXAMINATION AT A HEALTH CARE FACILITY 01/24/2012 DILAN AQUINO DOA K 257.2 HYPOGONADISM 01/24/2012 AQUINO DO CLARISSE K 338.29 CHRONIC PAIN 01/24/2012 AQUINO DO CLARISSE K 530.81 ESOPHAGEAL REFLUX 01/24/2012 MILES KLEIN CLARISSE K 564.1 IRRITABLE BOWEL SYNDROME 01/24/2012 MILES KLEIN CLARISSE K V58.69 taking high-risk medication 01/24/2012 MILES KLEIN CLARISSE K V70.0 ROUTINE GENERAL MEDICAL EXAMINATION AT A HEALTH CARE FACILITY 01/24/2012 STEVE ZARAGOZA MD 257.2 HYPOGONADISM 01/24/2012 STEVE ZARAGOZA MD 338.29 CHRONIC PAIN 01/24/2012 STEVE ZARAGOZA MD 530.81 ESOPHAGEAL REFLUX 01/24/2012 STEVE ZARAGOZA MD 564.1 IRRITABLE BOWEL SYNDROME 01/24/2012 STEVE ZARAGOZA MD V58.69 taking high-risk medication 01/24/2012 STEVE ZARAGOZA MD V70.0 ROUTINE GENERAL MEDICAL EXAMINATION AT A HEALTH CARE FACILITY 01/24/2012 SHANICE GUSMAN MD 257.2 HYPOGONADISM 01/24/2012 SHANICE GUSMAN MD 338.29 CHRONIC PAIN 01/24/2012 SHANICE GUSMAN MD 530.81 ESOPHAGEAL REFLUX 01/24/2012 SHANICE GUSMAN MD 564.1 IRRITABLE BOWEL SYNDROME 01/24/2012 SHANICE GUSMAN MD V58.69 taking high-risk medication 01/24/2012 SHANICE GUSMAN MD V70.0 ROUTINE GENERAL MEDICAL EXAMINATION AT A HEALTH CARE FACILITY 01/24/2012 STEVE ZARAGOZA MD 257.2 HYPOGONADISM 01/24/2012 STEVE ZARAGOZA MD 338.29 CHRONIC PAIN 01/24/2012 STEVE ZARAGOZA MD 530.81 ESOPHAGEAL REFLUX 01/24/2012 STEVE ZARAGOZA MD 564.1 IRRITABLE BOWEL SYNDROME 01/24/2012 STEVE ZARAGOZA MD V58.69 taking high-risk medication 01/24/2012 STEVE ZARAGOZA MD V70.0 ROUTINE GENERAL MEDICAL EXAMINATION AT A HEALTH CARE FACILITY 01/24/2012 CAROL RAPP MAURO ECHOLS 257.2 HYPOGONADISM 01/24/2012 CAROL RAPP MAURO KINZA 338.29 CHRONIC PAIN 01/24/2012 CAROL RAPP MAURO KINZA 530.81 ESOPHAGEAL REFLUX 01/24/2012 CAROL RAPP MAURO KINZA 564.1 IRRITABLE BOWEL SYNDROME 01/24/2012 CAROL RAPP MAURO KINZA V58.69 taking high-risk medication 01/24/2012 CAROL RAPP MAURO ECHOLS V70.0 ROUTINE GENERAL MEDICAL EXAMINATION AT A HEALTH CARE FACILITY 01/24/2012 STEVE ZARAGOZA MD 257.2 HYPOGONADISM 01/24/2012 STEVE ZARAGOZA MD 338.29 CHRONIC PAIN 01/24/2012 STEVE ZARAGOZA MD 530.81 ESOPHAGEAL REFLUX 01/24/2012 STEVE ZARAGOZA MD 564.1 IRRITABLE BOWEL SYNDROME 01/24/2012 STEVE ZARAGOZA MD V58.69 taking high-risk medication 01/24/2012 STEVE ZARAGOZA MD V70.0 ROUTINE GENERAL MEDICAL EXAMINATION AT A HEALTH CARE FACILITY 01/24/2012 JORGE LUIS MCDANIEL APRN 257.2 HYPOGONADISM 01/24/2012 JORGE LUIS MCDANIEL APRN 338.29 CHRONIC PAIN 01/24/2012 JORGE LUIS MCDANIEL APRN 530.81 ESOPHAGEAL REFLUX 01/24/2012 JORGE LUIS MCDANIEL APRN 564.1 IRRITABLE BOWEL SYNDROME 01/24/2012 JORGE LUIS MCDANIEL APRN V58.69 taking high-risk medication 01/24/2012 JORGE LUIS MCDANIEL APRN V70.0 ROUTINE GENERAL MEDICAL EXAMINATION AT A HEALTH CARE FACILITY 01/24/2012 JORGE LUIS MCDANIEL APRN 257.2 HYPOGONADISM 01/24/2012 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, 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 T 338.29 CHRONIC PAIN 01/24/2012 JORGE LUIS MCDANIEL APRN T 530.81 ESOPHAGEAL REFLUX 01/24/2012 JORGE LUIS MCDANIEL APRN T 564.1 IRRITABLE BOWEL SYNDROME 01/24/2012 JORGE LUIS MCDANIEL APRN V58.69 taking high-risk medication 01/24/2012 JORGE LUIS MCDANIEL APRN V70.0 ROUTINE GENERAL MEDICAL EXAMINATION AT A HEALTH CARE FACILITY 01/24/2012 JORGE LUIS MCDANIEL APRN 257.2 HYPOGONADISM 01/24/2012 JORGE LUIS MCDANIEL APRN T 338.29 CHRONIC PAIN 01/24/2012 JORGE LUIS MCDANIEL APRN T 530.81 ESOPHAGEAL REFLUX 01/24/2012 JORGE LUIS MCDANIEL APRN T 564.1 IRRITABLE BOWEL SYNDROME 01/24/2012 JORGE LUIS MCDANIEL APRN V58.69 taking high-risk medication 01/24/2012 JORGE LUIS MCDANIEL APRN V70.0 ROUTINE GENERAL MEDICAL EXAMINATION AT A HEALTH CARE FACILITY 01/24/2012 JORGE LUIS MCDANIEL APRN 257.2 HYPOGONADISM 01/24/2012 JORGE LUIS MCDANIEL APRN 338.29 CHRONIC PAIN 01/24/2012 JORGE LUIS MCDANIEL APRN T 530.81 ESOPHAGEAL REFLUX 01/24/2012 JORGE LUIS MCDANIEL APRN 564.1 IRRITABLE BOWEL SYNDROME 01/24/2012 JORGE LUIS MCDANIEL APRN V58.69 taking high-risk medication 01/24/2012 JORGE LUIS MCDANIEL APRN V70.0 ROUTINE GENERAL MEDICAL EXAMINATION AT A HEALTH CARE FACILITY 01/24/2012 JORGE LUIS MCDANIEL APRN 257.2 HYPOGONADISM 01/24/2012 JORGE LUIS MCDANIEL APRN T 338.29 CHRONIC PAIN 01/24/2012 JORGE LUIS MCDANIEL APRN T 530.81 ESOPHAGEAL REFLUX 01/24/2012 JORGE LUIS MCDANIEL APRN 564.1 IRRITABLE BOWEL SYNDROME 01/24/2012 JORGE LUIS MCDANIEL APRN V58.69 taking high-risk medication 01/24/2012 JORGE LUIS MCDANIEL APRN V70.0 ROUTINE GENERAL MEDICAL EXAMINATION AT A HEALTH CARE FACILITY 01/24/2012 JORGE LUIS MCDANIEL APRN 257.2 HYPOGONADISM 01/24/2012 JORGE LUIS MCDANIEL APRN T 338.29 CHRONIC PAIN 01/24/2012 JORGE LUIS MCDANIEL APRN T 530.81 ESOPHAGEAL REFLUX 01/24/2012 JORGE LUIS MCDANIEL APRN 564.1 IRRITABLE BOWEL SYNDROME 01/24/2012 JORGE LUIS MCDANIEL APRN V58.69 taking high-risk medication 01/24/2012 JORGE LUIS MCDANIEL APRN V70.0 ROUTINE GENERAL MEDICAL EXAMINATION AT A HEALTH CARE FACILITY 01/24/2012 AQUINO DO CLARISSE K 257.2 HYPOGONADISM 01/24/2012 AQUINO DO CLARISSE K 338.29 CHRONIC PAIN 01/24/2012 AQUINO DO CLARISSE K 530.81 ESOPHAGEAL REFLUX 01/24/2012 AQUINO DO CLRAISSE K 564.1 IRRITABLE BOWEL SYNDROME 01/24/2012 AQUINO DO, CLARISSE K V58.69 taking high-risk medication 01/24/2012 AQUINO DO, CLARISSE K V70.0 ROUTINE GENERAL MEDICAL EXAMINATION AT A HEALTH CARE FACILITY 01/24/2012 AQUINO DO CLARISSE K 257.2 HYPOGONADISM 01/24/2012 AQUINO DO CLARISSE K 338.29 CHRONIC PAIN 01/24/2012 AQUINO DO, CLARISSE K 530.81 ESOPHAGEAL REFLUX 01/24/2012 AQUINO DO CLARISSE K 564.1 IRRITABLE BOWEL SYNDROME 01/24/2012 AQUINO DO, CLARISSE K V58.69 taking high-risk medication 01/24/2012 AQUINO DO CLARISSE K V70.0 ROUTINE GENERAL MEDICAL EXAMINATION AT A HEALTH CARE FACILITY 01/24/2012 JORGE LUIS MCDANIEL APRN 257.2 HYPOGONADISM 01/24/2012 JORGE LUIS MCDANIEL APRN 338.29 CHRONIC PAIN 01/24/2012 JORGE LUIS MCDANIEL APRN 530.81 ESOPHAGEAL REFLUX 01/24/2012 JORGE LUIS MCDANIEL APRN 564.1 IRRITABLE BOWEL SYNDROME 01/24/2012 JORGE LUIS MCDANIEL APRN V58.69 taking high-risk medication 01/24/2012 JORGE LUIS MCDANIEL APRN V70.0 ROUTINE GENERAL MEDICAL EXAMINATION AT A HEALTH CARE FACILITY 01/24/2012 JORGE LUIS MCDANIEL APRN 257.2 HYPOGONADISM 01/24/2012 JORGE LUIS MCDANIEL APRN 338.29 CHRONIC PAIN 01/24/2012 JORGE LUIS MCDANIEL APRN 530.81 ESOPHAGEAL REFLUX 01/24/2012 JORGE LUIS MCDANIEL APRN 564.1 IRRITABLE BOWEL SYNDROME 01/24/2012 JORGE LUIS MCDANIEL APRN V58.69 taking high-risk medication 01/24/2012 JORGE LUIS MCDANIEL APRN V70.0 ROUTINE GENERAL MEDICAL EXAMINATION AT A HEALTH CARE FACILITY 01/24/2012 FLOR SPEARS APRN 257.2 HYPOGONADISM 01/24/2012 FLOR SPEARS APRN 338.29 CHRONIC PAIN 01/24/2012 FLOR SPEARS APRN 530.81 ESOPHAGEAL REFLUX 01/24/2012 FLOR SPEARS APRN 564.1 IRRITABLE BOWEL SYNDROME 01/24/2012 FLOR SPEARS APRN V58.69 taking high-risk medication 01/24/2012 FLOR SPEARS APRN V70.0 ROUTINE GENERAL MEDICAL EXAMINATION AT A [facility] 03/31/2012 696.1 OTHER PSORIASIS AND SIMILAR DISORDERS 03/31/2012 780.52 INSOMNIA UNSPECIFIED 03/31/2012 CECILIA BOGGS PA-C 696.1 OTHER PSORIASIS AND SIMILAR DISORDERS 03/31/2012 CECILIA BOGGS PA-C 780.52 INSOMNIA UNSPECIFIED 03/31/2012 CLARISSE AQUINO DO 696.1 PSORIASIS 03/31/2012 CLARISSE AQUINO DO 780.52 insomnia 03/31/2012 696.1 PSORIASIS 03/31/2012 780.52 insomnia 03/31/2012 696.1 PSORIASIS 03/31/2012 780.52 insomnia 03/31/2012 696.1 PSORIASIS 03/31/2012 780.52 insomnia 03/31/2012 CLARISSE AQUINO DO 696.1 PSORIASIS 03/31/2012 CLARISSE AQUINO DO 780.52 insomnia 03/31/2012 MAURO MEDINA APRN 696.1 PSORIASIS 03/31/2012 MAURO MEDINA APRN 780.52 insomnia 03/31/2012 CLARISSE AQUINO DO 696.1 PSORIASIS 03/31/2012 CLARISSE AQUINO DO 780.52 insomnia 03/31/2012 STEVE ZARAGOZA MD 696.1 PSORIASIS 03/31/2012 STEVE ZARAGOZA MD 780.52 insomnia 03/31/2012 SHANICE GUSMAN MD 696.1 PSORIASIS 03/31/2012 SHANICE GUSMAN MD 780.52 insomnia 03/31/2012 STEVE ZARAGOZA MD 696.1 PSORIASIS 03/31/2012 STEVE ZARAGOZA MD 780.52 insomnia 03/31/2012 MAURO MEDINA APRN 696.1 PSORIASIS 03/31/2012 MAURO MEDINA APRN 780.52 insomnia 03/31/2012 STEVE ZARAGOZA MD 696.1 PSORIASIS 03/31/2012 STEVE ZARAGOZA MD 780.52 insomnia 03/31/2012 JORGE LUIS MCDANIEL APRN T 696.1 PSORIASIS 03/31/2012 JORGE LUIS MCDANIEL APRN T 780.52 insomnia 03/31/2012 JORGE LUIS MCDANIEL APRN T 696.1 PSORIASIS 03/31/2012 JORGE LUIS MCDANIEL APRN T 780.52 insomnia 03/31/2012 JORGE LUIS MCDANIEL APRN T 696.1 PSORIASIS 03/31/2012 JORGE LUIS MCDANIEL APRN T 780.52 insomnia 03/31/2012 JORGE LUIS MCDANIEL APRN T 696.1 PSORIASIS 03/31/2012 JONAS RAPP, JORGE LUIS T 780.52 insomnia 03/31/2012 JORGE LUIS MCDANIEL APRN T 696.1 PSORIASIS 03/31/2012 JORGE LUIS MCDANIEL APRN T 780.52 insomnia 03/31/2012 JORGE LUIS MCDANIEL APRN T 696.1 PSORIASIS 03/31/2012 JORGE LUIS MCDANIEL APRN T 780.52 insomnia 03/31/2012 AQUINO DO CLARISSE K 696.1 PSORIASIS 03/31/2012 AQUINO DO, CLARISSE K 780.52 insomnia 03/31/2012 AQUINO DO, CLARISSE K 696.1 PSORIASIS 03/31/2012 AQUINO DO, CLARISSE K 780.52 insomnia 03/31/2012 JORGE LUIS MCDANIEL APRN T 696.1 PSORIASIS 03/31/2012 JORGE LUIS MCDANIEL APRN T 780.52 insomnia 03/31/2012 JORGE LUIS MCDANIEL APRN T 696.1 PSORIASIS 03/31/2012 JORGE LUIS MCDANIEL APRN T 780.52 insomnia 03/31/2012 FLOR SPEARS APRN 696.1 PSORIASIS 03/31/2012 FLOR SPEARS APRN 780.52 insomnia 05/14/2012 AQUINO DO, CLARISSE K 784.0 headache 05/14/2012 AQUINO DO, CLARISSE K V15.09 allergies 05/14/2012 784.0 headache 05/14/2012 V15.09 allergies 05/14/2012 784.0 headache 05/14/2012 V15.09 allergies 05/14/2012 784.0 headache 05/14/2012 V15.09 allergies 05/14/2012 AQUINO DO, CLARISSE K 784.0 headache 05/14/2012 AQUINO DO, CLARISSE K V15.09 allergies 05/14/2012 CAROL MACARION, MAURO ECHOLS 784.0 headache 05/14/2012 MEDINA TAMELA, MAURO ECHOLS V15.09 allergies 05/14/2012 AQUINO DO, CLARISSE K 784.0 headache 05/14/2012 AQUINO DO, CLARISSE K V15.09 allergies 05/14/2012 MILA AGINES, STEVE Rivas 784.0 headache 05/14/2012 MILA GAINES, STEVE Rivas V15.09 allergies 05/14/2012 NASEEM GAINES, SHANICE Krueger 784.0 headache 05/14/2012 NASEEM GAINES, SHANICE Krueger V15.09 allergies 05/14/2012 MILA GAINES, STEVE Rivas 784.0 headache 05/14/2012 MILA GAINES, STEVE Rivas V15.09 allergies 05/14/2012 MEDINA APRN, MAURO ECHOLS 784.0 headache 05/14/2012 MEDINAANTONY RAPP, MAURO ECHOLS V15.09 allergies 05/14/2012 MILA GAINES, STEVE Rivas 784.0 headache 05/14/2012 MILA GAINES, STEVE Rivas V15.09 allergies 05/14/2012 JONAS RAPP, JORGE LUIS T 784.0 headache 05/14/2012 JONAS RAPP, JORGE LUIS T V15.09 ALLERGIES 05/14/2012 JONAS RAPP, JORGE LUIS T 784.0 headache 05/14/2012 JONAS MACARION, JORGE LUIS T V15.09 ALLERGIES 05/14/2012 JONAS RAPP, JORGE LUIS T 784.0 headache 05/14/2012 JONAS RAPP, JORGE LUIS T V15.09 ALLERGIES 05/14/2012 JONAS RAPP, JORGE LUIS T 784.0 headache 05/14/2012 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, JORGE LUIS T V15.09 ALLERGIES 05/14/2012 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, JORGE LUIS T 784.0 headache 05/14/2012 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, JORGE LUIS T V15.09 ALLERGIES 05/14/2012 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, JORGE LUIS T 784.0 headache 05/14/2012 JONAS MACARION, JORGE LUIS T V15.09 ALLERGIES 05/14/2012 AQUINO DO, CLARISSE K 784.0 headache 05/14/2012 AQUINO DO, CLARISSE K V15.09 ALLERGIES 05/14/2012 AQUINO DO, CLARISSE K 784.0 headache 05/14/2012 AQUINO DO, CLARISSE K V15.09 ALLERGIES 05/14/2012 JONAS MACARION, JORGE LUIS T 784.0 headache 05/14/2012 JONAS MACARION JORGE LUIS T V15.09 ALLERGIES 05/14/2012 JONAS RAPP, JORGE LUIS T 784.0 headache 05/14/2012 JONAS MACARION, JORGE LUIS T V15.09 ALLERGIES 05/14/2012 FLOR SPEARS APRN D 784.0 headache 05/14/2012 SPEARS TAMELACHRISTOPHELENA Cee V15.09 ALLERGIES 05/19/2012 296.32 MO DEPRESSIVE RECURRENT MODERATE 05/19/2012 300.02 AN GEN ANXIETY 05/19/2012 296.32 MO DEPRESSIVE RECURRENT MODERATE 05/19/2012 300.02 AN GEN ANXIETY 05/19/2012 296.32 MO DEPRESSIVE RECURRENT MODERATE 05/19/2012 300.02 AN GEN ANXIETY 05/19/2012 CLARISSE AQUINO DO 296.32 MO DEPRESSIVE RECURRENT MODERATE 05/19/2012 CLARISSE AQUINO DO 300.02 AN GEN ANXIETY 05/19/2012 MAURO MEDINA APRN 296.32 MO DEPRESSIVE RECURRENT MODERATE 05/19/2012 MAURO MEDINA APRN 300.02 AN GEN ANXIETY 05/19/2012 CLARISSE AQUINO DO 296.32 MO DEPRESSIVE RECURRENT MODERATE 05/19/2012 CLARISSE AQUINO DO 300.02 AN GEN ANXIETY 05/19/2012 STEVE ZARAGOZA MD 296.32 MO DEPRESSIVE RECURRENT MODERATE 05/19/2012 STEVE ZARAGOZA MD 300.02 GENERALIZED ANXIETY DISORDER 05/19/2012 SHANICE GUSMAN MD 296.32 MO DEPRESSIVE RECURRENT MODERATE 05/19/2012 SHANICE GUSMAN MD 300.02 GENERALIZED ANXIETY DISORDER 05/19/2012 STEVE ZARAGOZA MD 296.32 MO DEPRESSIVE RECURRENT MODERATE 05/19/2012 STEVE ZARAGOZA MD 300.02 GENERALIZED ANXIETY DISORDER 05/19/2012 MAURO MEDINA APRN 296.32 MO DEPRESSIVE RECURRENT MODERATE 05/19/2012 MAURO MEDINA APRN 300.02 GENERALIZED ANXIETY DISORDER 05/19/2012 STEVE ZARAGOZA MD 296.32 MO DEPRESSIVE RECURRENT MODERATE 05/19/2012 STEVE ZARAGOZA MD 300.02 GENERALIZED ANXIETY DISORDER 05/19/2012 JORGE LUIS MCDANIEL APRN 296.32 MO DEPRESSIVE RECURRENT MODERATE 05/19/2012 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, JORGE LUIS T 300.02 GENERALIZED ANXIETY DISORDER 05/19/2012 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, JORGE LUIS T 296.32 MO DEPRESSIVE RECURRENT MODERATE 05/19/2012 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, JORGE LUIS T 300.02 GENERALIZED ANXIETY DISORDER 05/19/2012 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, JORGE LUIS T 296.32 MO DEPRESSIVE RECURRENT MODERATE 05/19/2012 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, JORGE LUIS T 300.02 GENERALIZED ANXIETY DISORDER 05/19/2012 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, JORGE LUIS T 296.32 MO DEPRESSIVE RECURRENT MODERATE 05/19/2012 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, JORGE LUIS T 300.02 GENERALIZED ANXIETY DISORDER 05/19/2012 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, JORGE LUIS T 296.32 MO DEPRESSIVE RECURRENT MODERATE 05/19/2012 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, JORGE LUIS T 300.02 GENERALIZED ANXIETY DISORDER 05/19/2012 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, JORGE LUIS T 296.32 MO DEPRESSIVE RECURRENT MODERATE 05/19/2012 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, JORGE LUIS T 300.02 GENERALIZED ANXIETY DISORDER 05/19/2012 AQUINO DO, CLARISSE K 296.32 MO DEPRESSIVE RECURRENT MODERATE 05/19/2012 AQUINO DO CLARISSE K 300.02 GENERALIZED ANXIETY DISORDER 05/19/2012 AQUINO DO, CLARISSE K 296.32 MO DEPRESSIVE RECURRENT MODERATE 05/19/2012 AQUINO DO, CLARISSE K 300.02 GENERALIZED ANXIETY DISORDER 05/19/2012 JONAS RAPP, JORGE LUIS T 296.32 MO DEPRESSIVE RECURRENT MODERATE 05/19/2012 JONAS RAPP, JORGE LUIS T 300.02 GENERALIZED ANXIETY DISORDER 05/19/2012 JONAS RAPP, JORGE LUIS T 296.32 MO DEPRESSIVE RECURRENT MODERATE 05/19/2012 JONAS RAPP, JORGE LUIS T 300.02 GENERALIZED ANXIETY DISORDER 05/19/2012 FLOR SPEARS APRN 296.32 MO DEPRESSIVE RECURRENT MODERATE 05/19/2012 FLOR SPEARS APRN 300.02 GENERALIZED ANXIETY DISORDER 05/29/2012 719.46 PAIN IN JOINT INVOLVING LOWER LEG 05/29/2012 719.46 PAIN IN JOINT INVOLVING LOWER LEG 05/29/2012 AQUINO DILAN KLEINA K 719.46 PAIN IN JOINT INVOLVING LOWER LEG 05/29/2012 MAURO MEDINA APRN 719.46 PAIN IN JOINT INVOLVING LOWER LEG 05/29/2012 AQUINO DILAN KLEINA K 719.46 PAIN IN JOINT INVOLVING LOWER LEG 05/29/2012 MILA GAINES, STEVE Rivas 719.46 PAIN IN JOINT INVOLVING LOWER LEG 05/29/2012 NASEEM GAINES, SHANICE Krueger 719.46 PAIN IN JOINT INVOLVING LOWER LEG 05/29/2012 STEVE ZARAGOZA MD 719.46 PAIN IN JOINT INVOLVING LOWER LEG 05/29/2012 CAROL RAPP MAURO CHILDH 719.46 PAIN IN JOINT INVOLVING LOWER LEG 05/29/2012 STEVE ZARAGOZA MD 719.46 PAIN IN JOINT INVOLVING LOWER LEG 05/29/2012 JORGE LUIS MCDANIEL APRN 719.46 PAIN IN JOINT INVOLVING LOWER LEG 05/29/2012 JORGE LUIS MCDANIEL APRN 719.46 PAIN IN JOINT INVOLVING LOWER LEG 05/29/2012 JORGE LUIS MCDANIEL APRN 719.46 PAIN IN JOINT INVOLVING LOWER LEG 05/29/2012 JORGE LUIS MCDANIEL APRN 719.46 PAIN IN JOINT INVOLVING LOWER LEG 05/29/2012 JORGE LUIS MCDANIEL APRN 719.46 PAIN IN JOINT INVOLVING LOWER LEG 05/29/2012 JORGE LUIS MCDANIEL APRN 719.46 PAIN IN JOINT INVOLVING LOWER LEG 05/29/2012 MILES KLEIN CLARISSE K 719.46 PAIN IN JOINT INVOLVING LOWER LEG 05/29/2012 AQUINO DO CLARISSE K 719.46 PAIN IN JOINT INVOLVING LOWER LEG 05/29/2012 JORGE LUIS MCDANIEL APRN T 719.46 PAIN IN JOINT INVOLVING LOWER LEG 05/29/2012 JORGE LUIS MCDANIEL APRN 719.46 PAIN IN JOINT INVOLVING LOWER LEG 05/29/2012 FLOR SPEARS APRN 719.46 PAIN IN JOINT INVOLVING LOWER LEG 06/08/2012 054.9 HERPES SIMPLEX 06/08/2012 462 sore throat 06/08/2012 054.9 HERPES SIMPLEX 06/08/2012 462 SORE THROAT 06/08/2012 AQUINO DO, CLARISSE K 054.9 HERPES SIMPLEX 06/08/2012 AQUINO DO, CLARISSE K 462 SORE THROAT 06/08/2012 CAROL RAPP MAURO KINZA 054.9 HERPES SIMPLEX 06/08/2012 MAURO MEDINA APRN 462 SORE THROAT 06/08/2012 AQUINO DO, CLARISSE K 054.9 HERPES SIMPLEX 06/08/2012 AQUINO DO, CLARISSE K 462 SORE THROAT 06/08/2012 STEVE ZARAGOZA MD 054.9 HERPES SIMPLEX 06/08/2012 STEVE ZARAGOZA MD 462 SORE THROAT 06/08/2012 NASEEM GAINES, SHANICE N 054.9 HERPES SIMPLEX 06/08/2012 NASEEM GAINES, SHANICE N 462 SORE THROAT 06/08/2012 MILA GAINES, STEVE Rivas 054.9 HERPES SIMPLEX 06/08/2012 MILA GAINES, STEVE Rivas 462 SORE THROAT 06/08/2012 CAROL [employer]ER, MAURO ECHOLS 054.9 HERPES SIMPLEX 06/08/2012 CAROL RAPP, MAURO ECHOLS 462 SORE THROAT 06/08/2012 MILA GAINES, STEVE Rivas 054.9 HERPES SIMPLEX 06/08/2012 MILA GAINES, STEVE Rivas 462 SORE THROAT 06/08/2012 JONAS RAPP, JORGE LUIS T 054.9 HERPES SIMPLEX 06/08/2012 JONAS RAPP, JORGE LUIS T 462 SORE THROAT 06/08/2012 JONAS MACARION, JORGE LUIS T 054.9 HERPES SIMPLEX 06/08/2012 JONAS RAPP, JORGE LUIS T 462 SORE THROAT 06/08/2012 JONAS MACARION, JORGE LUIS T 054.9 HERPES SIMPLEX 06/08/2012 JONAS MACARION, JORGE LUIS T 462 SORE THROAT 06/08/2012 JONAS MACARION, JORGE LUIS T 054.9 HERPES SIMPLEX 06/08/2012 JONAS MACARION, JORGE LUIS T 462 SORE THROAT 06/08/2012 JONAS MACARION, JORGE LUIS T 054.9 HERPES SIMPLEX 06/08/2012 JONAS MACARION, JORGE LUIS T 462 SORE THROAT 06/08/2012 JONAS RAPP, JORGE LUIS T 054.9 HERPES SIMPLEX 06/08/2012 JONAS RAPP, JORGE LUIS T 462 SORE THROAT 06/08/2012 AQUINO DO, CLARISSE K 054.9 HERPES SIMPLEX 06/08/2012 AQUINO DO, CLARISSE K 462 SORE THROAT 06/08/2012 AQUINO DO, CLARISSE K 054.9 HERPES SIMPLEX 06/08/2012 AQUINO DO, CLARISSE K 462 SORE THROAT 06/08/2012 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, JORGE LUIS T 054.9 HERPES SIMPLEX 06/08/2012 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, JORGE LUIS T 462 SORE THROAT 06/08/2012 JONAS MACARION, JORGE LUIS T 054.9 HERPES SIMPLEX 06/08/2012 JONAS RAPP, JORGE LUIS T 462 SORE THROAT 06/08/2012 FLOR SPEARS APRN 054.9 HERPES SIMPLEX 06/08/2012 FLOR SPEARS APRN 462 SORE THROAT 08/31/2012 719.40 PAIN IN JOINT SITE UNSPECIFIED 08/31/2012 CLARISSE AQUINO DO K 719.40 PAIN IN JOINT SITE UNSPECIFIED 08/31/2012 CAROL RAPPMAURO 719.40 PAIN IN JOINT SITE UNSPECIFIED 08/31/2012 DILAN AQUINO DOA K 719.40 PAIN IN JOINT SITE UNSPECIFIED 08/31/2012 STEVE ZARAGOZA MD 719.40 PAIN IN JOINT SITE UNSPECIFIED 08/31/2012 SHANICE GUSMAN MD 719.40 PAIN IN JOINT SITE UNSPECIFIED 08/31/2012 STEVE ZARAGOZA MD 719.40 PAIN IN JOINT SITE UNSPECIFIED 08/31/2012 CAROL RAPP MAURO ECHOLS 719.40 PAIN IN JOINT SITE UNSPECIFIED 08/31/2012 STEVE ZARAGOZA MD 719.40 PAIN IN JOINT SITE UNSPECIFIED 08/31/2012 JORGE LUIS MCDANIEL APRN 719.40 PAIN IN JOINT SITE UNSPECIFIED 08/31/2012 JORGE LUIS MCDANIEL APRN 719.40 PAIN IN JOINT SITE UNSPECIFIED 08/31/2012 JORGE LUIS MCDANIEL APRN T 719.40 PAIN IN JOINT SITE UNSPECIFIED 08/31/2012 JORGE LUIS MCDANIEL APRN T 719.40 PAIN IN JOINT SITE UNSPECIFIED 08/31/2012 JORGE LUIS MCDANIEL APRN T 719.40 PAIN IN JOINT SITE UNSPECIFIED 08/31/2012 JORGE LUIS MCDANIEL APRN 719.40 PAIN IN JOINT SITE UNSPECIFIED 08/31/2012 CLARISSE AQUINO DO K 719.40 PAIN IN JOINT SITE UNSPECIFIED 08/31/2012 DILAN AQUINO DOA K 719.40 PAIN IN JOINT SITE UNSPECIFIED 08/31/2012 JORGE LUIS MCDANIEL APRN T 719.40 PAIN IN JOINT SITE UNSPECIFIED 08/31/2012 JORGE LUIS MCDANIEL APRN T 719.40 PAIN IN JOINT SITE UNSPECIFIED 08/31/2012 FLOR SPEARS APRN 719.40 PAIN IN JOINT SITE UNSPECIFIED 01/04/2013 STEVE ZARAGOZA MD 189.0 RENAL NEOPLASM MALIGNANT 01/04/2013 SHANICE GUSMAN MD 189.0 RENAL NEOPLASM MALIGNANT 01/04/2013 MILA MD, STEVE M 189.0 RENAL NEOPLASM MALIGNANT 01/04/2013 CAROL RAPP, MAURO ECHOLS 189.0 RENAL NEOPLASM MALIGNANT 01/04/2013 MILA GAINES, STEVE M 189.0 RENAL NEOPLASM MALIGNANT 01/04/2013 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, JORGE LUIS T 189.0 RENAL NEOPLASM MALIGNANT 01/04/2013 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, JORGE LUIS T 189.0 RENAL NEOPLASM MALIGNANT 01/04/2013 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, JORGE LUIS T 189.0 RENAL NEOPLASM MALIGNANT 01/04/2013 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, 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 T 189.0 RENAL NEOPLASM MALIGNANT 01/04/2013 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, JORGE LUIS T 189.0 RENAL NEOPLASM MALIGNANT 01/04/2013 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, JORGE LUIS T 189.0 RENAL NEOPLASM MALIGNANT 01/04/2013 AQUINO DO, CLARISSE K 189.0 RENAL NEOPLASM MALIGNANT 01/04/2013 AQUINO DO, CLARISSE K 189.0 RENAL NEOPLASM MALIGNANT 01/04/2013 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, JORGE LUIS T 189.0 RENAL NEOPLASM MALIGNANT 01/04/2013 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, JORGE LUIS T 189.0 RENAL NEOPLASM MALIGNANT 01/04/2013 FLOR SPEARS APRN 189.0 RENAL NEOPLASM MALIGNANT 01/27/2013 NASEEM GAINES, SHANICE N 465.9 UPPER RESPIRATORY INFECTION 01/27/2013 MILA GAINES, STEVE M 465.9 UPPER RESPIRATORY INFECTION 01/27/2013 CAROL RAPP, MAURO ECHOLS 465.9 UPPER RESPIRATORY INFECTION 01/27/2013 MILA GAINES, STEVE M 465.9 UPPER RESPIRATORY INFECTION 01/27/2013 JONAS RAPP, JORGE LUIS T 465.9 UPPER RESPIRATORY INFECTION 01/27/2013 JONAS MACARION, JORGE LUIS T 465.9 UPPER RESPIRATORY INFECTION 01/27/2013 JONAS MACARION, JORGE LUIS T 465.9 UPPER RESPIRATORY INFECTION 01/27/2013 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, JORGE LUIS T 465.9 UPPER RESPIRATORY INFECTION 01/27/2013 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, 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 T 465.9 UPPER RESPIRATORY INFECTION 01/27/2013 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, 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 LUIS T 465.9 UPPER RESPIRATORY INFECTION 01/27/2013 AQUINO DO, CLARISSE K 465.9 UPPER RESPIRATORY INFECTION 01/27/2013 AQUINO DO, CLARISSE K 465.9 UPPER RESPIRATORY INFECTION 01/27/2013 JONAS MACARION, JORGE LUIS T 465.9 UPPER RESPIRATORY INFECTION 01/27/2013 JONAS MACARION, JORGE LUIS T 465.9 UPPER RESPIRATORY INFECTION 01/27/2013 FLOR SPEARS APRN D 465.9 UPPER RESPIRATORY INFECTION 04/07/2013 MEDINA TAMELA, MAURO ECHOLS 726.32 LATERAL EPICONDYLITIS [place]BOW REGION 04/07/2013 STEVE ZARAGOZA MD 726.32 LATERAL EPICONDYLITIS [place]BOW REGION 04/07/2013 JORGE LUIS MCDANIEL APRN T 726.32 LATERAL EPICONDYLITIS ELBOW REGION 04/07/2013 JORGE LUIS MCDANIEL APRN T 726.32 LATERAL EPICONDYLITIS ELBOW REGION 04/07/2013 JORGE LUIS MCDANIEL APRN T 726.32 LATERAL EPICONDYLITIS ELBOW REGION 04/07/2013 JORGE LUIS MCDANIEL APRN T 726.32 LATERAL EPICONDYLITIS ELBOW REGION 04/07/2013 JORGE LUIS MCDANIEL APRN T 726.32 LATERAL EPICONDYLITIS ELBOW REGION 04/07/2013 JORGE LUIS MCDANIEL APRN T 726.32 LATERAL EPICONDYLITIS ELBOW REGION 04/07/2013 MILES KLEIN CLARISSE K 726.32 LATERAL EPICONDYLITIS ELBOW REGION 04/07/2013 DILAN AQUINO DOA K 726.32 LATERAL EPICONDYLITIS ELBOW REGION 04/07/2013 JORGE LUIS MCDANIEL APRN T 726.32 LATERAL EPICONDYLITIS [place] REGION 04/07/2013 JORGE LUIS MCDANIEL APRN T 726.32 LATERAL EPICONDYLITIS [place] REGION 04/07/2013 FLOR SPEARS APRN 726.32 LATERAL EPICONDYLITIS [place] REGION 04/20/2013 MILA GAINES, STEVE Rivas 569.42 ANAL OR RECTAL PAIN 04/20/2013 JORGE LUIS MCDANIEL APRN T 569.42 ANAL OR RECTAL PAIN 04/20/2013 JORGE LUIS MCDANIEL APRN T 569.42 ANAL OR RECTAL PAIN 04/20/2013 JORGE LUIS MCDANIEL APRN T 569.42 ANAL OR RECTAL PAIN 04/20/2013 JORGE LUIS MCDANIEL APRN T 569.42 ANAL OR RECTAL PAIN 04/20/2013 JORGE LUIS MCDANIEL APRN T 569.42 ANAL OR RECTAL PAIN 04/20/2013 JORGE LUIS MCDANIEL APRN T 569.42 ANAL OR RECTAL PAIN 04/20/2013 AQUINO DO CLARISSE K 569.42 ANAL OR RECTAL PAIN 04/20/2013 AQUINO DO CLARISSE K 569.42 ANAL OR RECTAL PAIN 04/20/2013 JORGE LUIS MCDANIEL APRN T 569.42 ANAL OR RECTAL PAIN 04/20/2013 JORGE LUIS MCDANIEL APRN T 569.42 ANAL OR RECTAL PAIN 04/20/2013 FLOR SPEARS APRN 569.42 ANAL OR RECTAL PAIN 12/10/2013 JORGE LUIS MCDANIEL APRN 462 PHARYNGITIS ACUTE 12/10/2013 JORGE LUIS MCDANIEL APRN 462 PHARYNGITIS ACUTE 12/10/2013 AQUINO DODILANA K 462 PHARYNGITIS ACUTE 12/10/2013 DILAN AQUINO DOA K 462 PHARYNGITIS ACUTE 12/10/2013 JORGE LUIS MCDANIEL APRN 462 PHARYNGITIS ACUTE 12/10/2013 JORGE LUIS MCDANIEL APRN 462 PHARYNGITIS ACUTE 12/10/2013 FLOR SPEARS APRN 462 PHARYNGITIS ACUTE 03/24/2014 DILAN AQUINO DOA K 487.1 INFLUENZA WITH OTHER RESPIRATORY MANIFESTATIONS 03/24/2014 DILAN AQUINO DOA K 487.1 INFLUENZA WITH OTHER RESPIRATORY MANIFESTATIONS 03/24/2014 JORGE LUIS MCDANIEL APRN 487.1 INFLUENZA WITH OTHER RESPIRATORY MANIFESTATIONS 03/24/2014 JORGE LUIS MCDANIEL APRN 487.1 INFLUENZA WITH OTHER RESPIRATORY MANIFESTATIONS 03/24/2014 FLOR SPEARS APRN 487.1 INFLUENZA WITH OTHER RESPIRATORY MANIFESTATIONS 03/25/2014 SAUL GAINES, ANIYA Ot 189.0 04/06/2014 AQUINO DO, CLARISSE K 216.9 MOLE/NEVUS - SITE UNSPECIFIED 04/06/2014 MILES KLEIN CLARISSE K 701.9 SKIN TAG 04/06/2014 JORGE LUIS MCDANIEL APRN 216.9 MOLE/NEVUS - SITE UNSPECIFIED 04/06/2014 JORGE LUIS MCDANIEL APRN 701.9 SKIN TAG 04/06/2014 JORGE LUIS MCDANIEL APRN 216.9 MOLE/NEVUS - SITE UNSPECIFIED 04/06/2014 JORGE LUIS MCDANIEL APRN 701.9 SKIN TAG 04/06/2014 FLOR SPEARS APRN 216.9 MOLE/NEVUS - SITE UNSPECIFIED 04/06/2014 FLOR SPEARS APRN 701.9 SKIN TAG 04/11/2014 ANIYA HUGHES MD Ot 189.0 05/04/2014 JORGE LUIS MCDANIEL APRN 716.90 ARTHRITIS/ ARTHROPATHY, UNSPECIFIED 05/04/2014 JORGE LUIS MCDANIEL APRN 716.90 ARTHRITIS/ ARTHROPATHY, UNSPECIFIED 05/04/2014 FLOR SPEARS APRN 716.90 ARTHRITIS/ ARTHROPATHY, UNSPECIFIED 06/01/2014 JORGE LUIS MCDANIEL APRN 357.9 NEUROPATHY UNSP 06/01/2014 FLOR SPEARS APRN 357.9 NEUROPATHY UNSP 06/09/2014 FLOR SPEARS APRN 726.2 OTHER AFFECTIONS OF SHOULDER REGION NOT ELSEWHERE CLASSIFIED 10/20/2014 DEJA BEAUCHAMP MD Ot 189.0 11/01/2014 DEJA BEAUCHAMP MD Ot 189.0 11/02/2014 SAUL GAINES, MOBGAVI Ot 189.0 11/30/2014 HONORIO CHAMBERS APRN Ot I12.9 HYPERTENSIVE CHRONIC KIDNEY DISEASE W ST 11/30/2014 HONORIO CHAMBERS APRN Ot N18.9 CHRONIC KIDNEY DISEASE, UNSPECIFIED 11/30/2014 HONORIO CHAMBERS APRN Ot R00.2 PALPITATIONS 05/15/2015 SAUL GAINES MOBGAVI Ot 189.0 08/14/2015 SAUL GAINES, MOBGAVI Ot 189.0 MALIG NEOPL KIDNEY 08/14/2015 ANIYA HUGHES MD Ot 189.0 MALIG NEOPL KIDNEY Procedures Code [place] [address] URINE DRUG SCREEN (IN-HOUSE ) 01/24/2012 28343 ROUTINE VENIPUNCTURE 04/07/2012 58729 ESR/SED RATE 04/07/2012 62672 CBC 04/07/2012 15938 LIPID PANEL 04/07/2012 51199 CMP 04/07/2012 [id number] GFR CALC (RESULT ONLY) 04/07/2012 35518 CRP 04/07/2012 39603 TSH 04/07/2012 97136 TESTOSTERONE TOTAL 04/07/2012 89467 XRAY CHEST 2 VIEW 04/12/2012 51616 ROUTINE VENIPUNCTURE 05/14/2012 66009 CMP 05/14/2012 34834 CBC 05/14/2012 88625 STREP A (IN-HOUSE) 06/08/2012 92661 ROUTINE VENIPUNCTURE 01/07/2013 [id number] GFR CALC (RESULT ONLY) 01/08/2013 77652 BMP 01/08/2013 82988 MAGNESIUM 01/08/2013 06627 TSH 01/08/2013 08423 ROUTINE VENIPUNCTURE 04/07/2013 General S Harris Avalos 04/07/2013 [id number] GFR CALC (RESULT ONLY) 04/07/2013 16043 RENAL PROFILE 04/07/2013 GENERAL S ZOFIA SMART 04/08/2013 95605 ROUTINE VENIPUNCTURE 09/01/2013 [id number] GFR CALC (RESULT ONLY) 09/01/2013 38345 BMP 09/01/2013 36355 ROUTINE VENIPUNCTURE 12/10/[id number] GFR CALC (RESULT ONLY) 12/10/2013 17205 [facility] 12/10/2013 88117 THERAPUTIC INJ SQ/IM 04/06/2014 J1885 TORADOL INJ 04/06/2014 46504 XRAY SHOULDER RIGHT COMP 2 VIEWS 05/17/2014 Results There is no data. Encounters ACCT No. Visit Date/Time Discharge Status Pt. Type Provider Facility Loc./Unit Complaint [id number] 06/09/2014 16:03:00 06/09/2014 23:59:59 CLS Outpatient FLOR SPEARS APRN [id number] 06/01/2014 16:10:00 06/01/2014 23:59:59 CLS Outpatient JORGE LUIS MCDANIEL APRN [id number] 05/16/2014 13:14:00 05/16/2014 23:59:59 CLS Outpatient JORGE LUIS MCDANIEL APRN [id number] 03/24/2014 16:29:00 03/24/2014 23:59:59 CLS Outpatient MILES KLEIN CLARISSE Jose [id number] 03/24/2014 16:29:00 03/24/2014 23:59:59 CLS Outpatient MILES KLEIN CLARISSE K [id number] 03/04/2014 15:38:00 03/04/2014 23:59:59 CLS Outpatient JORGE LUIS MCDANIEL APRN [id number] 12/10/2013 12:07:00 12/10/2013 23:59:59 CLS Outpatient JORGE LUIS MCDANIEL APRN [id number] 10/27/2013 12:20:00 10/27/2013 23:59:59 CLS Outpatient JORGE LUIS MCDANIEL APRN [id number] 09/01/2013 10:08:00 09/01/2013 23:59:59 CLS Outpatient JORGE LUIS MCDANIEL APRN [id number] 06/21/2013 16:30:00 06/21/2013 23:59:59 CLS Outpatient JORGE LUIS MCDANIEL APRN [id number] 05/24/2013 08:54:00 05/24/2013 23:59:59 CLS Outpatient JORGE LUIS MCDANIEL APRN [id number] 04/07/2013 13:49:00 04/07/2013 23:59:59 CLS Outpatient MAURO MEDINA APRN [id number] 04/07/2013 10:51:00 04/07/2013 23:59:59 CLS Outpatient STEVE ZARAGOZA MD [id number] 01/27/2013 13:52:00 01/27/2013 23:59:59 CLS Outpatient SHANICE GUSMAN MD [id number] 01/07/2013 15:12:00 01/07/2013 23:59:59 CLS Outpatient STEVE ZARAGOZA MD [id number] 01/07/2013 15:12:00 01/07/2013 23:59:59 CLS Outpatient STEVE ZARAGOZA MD [id number] 12/10/2012 10:38:00 12/10/2012 23:59:59 CLS Outpatient CLARISSE AQUINO DO [id number] 11/18/2012 14:56:00 11/18/2012 23:59:59 CLS Outpatient MAURO MEDINA APRN [id number] 10/01/2012 10:23:00 10/01/2012 23:59:59 CLS Outpatient CLARISSE AQUINO DO [id number] 05/19/2012 10:52:00 05/19/2012 23:59:59 CLS Outpatient [id number] 05/14/2012 09:06:00 05/14/2012 23:59:59 CLS Outpatient CLARISSE AQUINO DO [id number] 04/07/2012 11:13:00 04/07/2012 23:59:59 CLS Outpatient CECILIA BOGGS PA-C [id number] 03/31/2012 10:05:00 03/31/2012 23:59:59 CLS Outpatient [id number] 01/24/2012 15:54:00 01/24/2012 23:59:59 CLS Outpatient [id number] 01/24/2012 15:54:00 01/24/2012 23:59:59 CLS Outpatient [id number] 10/01/2012 10:23:00 Document Registration [id number] 06/08/2012 15:06:00 Document Registration [id number] 01/24/2012 16:06:35 Document Registration [id number] 02/07/2017 12:24:00 02/07/2017 14:27:00 DIS Emergency HONORIO CHAMBERS [employer] INST[employer]ER [facility] [id number] 11/30/2014 20:27:00 11/30/2014 21:49:00 DIS Emergency HONORIO CHAMBERS APRN [facility] ER [id number] 10/10/2014 12:54:00 10/10/2014 23:59:59 CLS Outpatient ANIYA HUGHES MD [facility] RAD [id number] 10/05/2014 13:26:00 10/05/2014 23:59:59 CLS Outpatient DEJA BEAUCHAMP MD [facility] LAB [id number] 03/03/2014 14:57:00 03/03/2014 23:59:59 CLS Outpatient ANIYA HUGHES MD [facility] RAD [id number] 10/04/2013 12:58:00 10/04/2013 14:57:00 DIS Emergency [id number] 09/17/2013 12:56:00 09/17/2013 23:59:59 CLS Outpatient [id number] 2013 13:38:00 2013 14:53:00 DIS Emergency [id number] 02/20/2013 22:01:00 02/20/2013 23:17:00 DIS Emergency [id number] 01/01/2013 20:36:00 01/03/2013 12:23:00 DIS Inpatient [id number] 07/03/2012 12:02:00 07/03/2012 23:59:59 CLS Outpatient
[2017-02-10] MEDS ORDERED: NS IV 1000 ML 1,000 ML IV ONE (09:35)
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
[2017-02-10] MEDS ORDERED: KETOROLAC 30 MG/ML VIAL IVP ONE (09:45)
[2017-02-10] MEDS ORDERED: ONDANSETRON 4 MG/2 ML (SDV) Z0FRAN IVP ONE (09:45)
[2017-02-10 10:04] LABS: BASOPHILS % (AUTO) 0 % (0-10); EOSINOPHILS % (AUTO) 1 % (0-10); LYMPHOCYTES # (AUTO) 0.5 X 10^3 (1.0-4.0); LYMPHOCYTES % (AUTO) 10 % (12-44); MEAN CORPUSCULAR HEMOGLOBIN 30 PG (25-34); MEAN CORPUSCULAR HGB CONC 34 G/DL (32-36); MEAN CORPUSCULAR VOLUME 89 FL (80-99); MONOCYTES # (AUTO) 0.8 X 10^3 (0.0-1.0); MONOCYTES % (AUTO) 15 % (0-12); NEUTROPHILS # (AUTO) 4.1 X 10^3 (1.8-7.8); NEUTROPHILS % (AUTO) 74 % (42-75); PLATELET COUNT 203 10^3/uL (130-400); RED BLOOD COUNT 4.91 10^6/uL (4.35-5.85); RED CELL DISTRIBUTION WIDTH 12.8 % (10.0-14.5); WHITE BLOOD COUNT 5.5 10^3/uL (4.3-11.0)
[2017-02-10 10:21] LABS: ALANINE AMINOTRANSFERASE 47 U/L (0-55); ALBUMIN 4.3 GM/DL (3.2-4.5); ANION GAP 10 MMOL/L (5-14); ASPARTATE AMINO TRANSFERASE 29 U/L (5-34); BILIRUBIN,TOTAL 0.3 MG/DL (0.1-1.0); BLOOD UREA NITROGEN 10 MG/DL (7-18); BUN/CREATININE RATIO 8; CALCIUM 9.3 MG/DL (8.5-10.1); CARBON DIOXIDE 30 MMOL/L (21-32); CHLORIDE 99 MMOL/L (98-107); CREATININE SERUM 1.25 MG/DL (0.60-1.30); GFR ESTIMATED > 60; GLUCOSE 111 MG/DL (70-105); POTASSIUM 3.6 MMOL/L (3.6-5.0); SODIUM 139 MMOL/L (135-145); TOTAL PROTEIN 7.9 GM/DL (6.4-8.2)
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
[2017-02-10] MEDS ORDERED: HYDROcodone/APAP 5 MG/325 MG (LORTAB) TAB PO ONE (10:45)
[2017-02-10] MEDS ORDERED: ORPHENADRINE 60 MG/2 ML (NORFLEX) AMP IV ONE (10:45)
[2017-02-10 11:03] VITALS: BP 152/107
== END 2017-02-10 10:57 | disposition home or self-care (01) ==
LOC: EDUNIT# 09:19 → ER 09:22
DX: J10.1 Influenza due to other identified influenza virus with other respiratory manifestations (principal); M54.9 Dorsalgia, unspecified; K21.9 Gastro-esophageal reflux disease without esophagitis; M19.90 Unspecified osteoarthritis, unspecified site; F90.9 Attention-deficit hyperactivity disorder, unspecified type; F41.9 Anxiety disorder, unspecified; F32.9 Major depressive disorder, single episode, unspecified; Z85.528 Personal history of other malignant neoplasm of kidney; Z98.1 Arthrodesis status; Z87.19 Personal history of other diseases of the digestive system
CPT/HCPCS: 36415; 71020; 80053; 83735; 85025; 87804; 96361; 96374; 96375

== ENCOUNTER → 2017-12-17 | Outpatient (CLI) | payer MEDICARE, MEDICAID | LOC: RAD 08:18 | PROVIDERS: ATTEND Nurse Practitioner Community Health | DX: G60.9 Hereditary and idiopathic neuropathy, unspecified (principal); M54.2 Cervicalgia; Z53.8 Procedure and treatment not carried out for other reasons ==

== ENCOUNTER 2018-10-18 11:44 | Emergency (ER) | payer MEDICAID, MEDICARE ==
[~2018-10-18] VITALS: Ht 185.4 cm; Wt 113.4 kg
[2018-10-18] MEDS ORDERED: KETOROLAC 30 MG/ML VIAL IVP ONE ×2 (12:00)
[2018-10-18] MEDS ORDERED: ONDANSETRON 4 MG/2 ML (SDV) Z0FRAN IVP ONE ×2 (12:00)
[2018-10-18] MEDS ORDERED: NS IV 1000 ML 1,000 ML IV SCH ×2 (12:00)
--- NOTE | 2018-10-18 12:04 | ED General ---
General Chief Complaint: General Problems/Pain Stated Complaint: HEADACHE/BODY ACHES/DIFF URINATING/NAUSEA Nursing Triage Note: TO TRIAGE WITH MULTIPLE COMPLAINTS. THINKS HE HAS THE FLU, BODY ACHES, N/V, NIGHT SWEATS, SORE THORAT, AND ABD BLOATING. THINKS HE IS DEHYDRATED. Nursing Sepsis Screen: No Definite Risk Source of Information: Patient Exam Limitations: No Limitations History of Present Illness Date Seen by Provider: Oct 18, 2018 Time Seen by Provider: 12:03 Initial Comments To ER per private vehicle with reports of a three-day history of nausea, bloating, constipation, night sweats, sore throat, runny nose. Timing/Duration: 1-2 Days Severity: Moderate Associated Systoms: No Cough; Headaches, Malaise, Nausea/Vomiting Allergies and Home Medications Allergies Coded Allergies: sulfamethoxazole (Verified Allergy, Unknown, 01/01/13) trimethoprim (Verified Allergy, Unknown, 01/01/13) eszopiclone (Verified Adverse Reaction, Unknown, MAKES EVERYTHING TASTE BAD, 10/18/18) Home Medications Cetirizine HCl 10 Mg Tablet, 10 MG PO DAILY Prescribed by: ILEANA DAY on 10/04/13 145 Cetirizine Hcl 10 Mg Tablet, 10 MG PO DAILY, (Reported) Cyclobenzaprine Hcl 10 Mg Tablet, 1 EACH PO TID PRN Prescribed by: STEVE ZARAGOZA on 01/03/13 1014 Cyclobenzaprine Hcl 10 Mg Tablet, 1 EACH PO TID PRN for SPASMS Prescribed by: ILEANA DAY on 10/04/13 145 Desvenlafaxine Succinate 50 Mg Tab.sr.24h, 50 MG PO DAILY, (Reported) Desvenlafaxine Succinate 50 Mg Tab.sr.24h, 50 MG PO DAILY Prescribed by: ILEANA DAY on 10/04/13 1451 Hydrocodone Bit/Acetaminophen 1 Tab Tablet, 1 TAB PO Q4H PRN for PAIN Prescribed by: ILEANA DAY on 10/04/13 145 Hydrocodone/Acetaminophen 1 Each Tablet, 1 EACH PO Q6H PRN for PAIN Prescribed by: JOEY DE on 08/17/13 1446 Hydroxyzine Pamoate 25 Mg Capsule, 25 MG PO Q6H PRN for ANXIETY Prescribed by: ILEANA DAY on 10/04/13 1451 Lorazepam 1 Mg Tablet, 1-2 MG PO HS, (Reported) Metoprolol Succinate 25 Mg Tab.er.24h, 25 MG PO DAILY Prescribed by: HONORIO CHAMBERS on 11/30/142144 Pantoprazole Sodium 20 Mg Tablet.dr, 20 MG PO DAILY, (Reported) Pantoprazole Sodium 40 Mg Tablet.dr, 1 TAB PO DAILY Prescribed by: ILEANA DAY on 10/04/13 145 Testosterone 1.25 Gm Gel.packet, 1.25 GM TD DAILY, (Reported) Triamcinolone Acet 15 Gm Cr, 0 TOP BID PRN for RASH, (Reported) APPLY SPRARINGLY TO AFFECTED AREA(S) Patient Home Medication List Home Medication List Reviewed: Yes Review of Systems Review of Systems Constitutional: see HPI EENTM: see HPI Respiratory: no symptoms reported Cardiovascular: no symptoms reported Genitourinary: no symptoms reported Musculoskeletal: no symptoms reported Skin: no symptoms reported Psychiatric/Neurological: See HPI Hematologic/Lymphatic: No Symptoms Reported Immunological/Allergic: no symptoms reported Past Kynvygr-Fynope-Ozxysh Hx Patient Social History Alcohol Use: Denies Use Recreational Drug Use: No Smoking Status: Never a Smoker 2nd Hand Smoke Exposure: No Recent Foreign Travel: No Contact w/Someone Who Travel: No Recent Infectious Disease Expo: No Recent Hopitalizations: No Physical Abuse: No Sexual Abuse: No Mistreated: No Fear: No Immunizations Up To Date Tetanus Booster (TDap): Less than 5yrs Seasonal Allergies Seasonal Allergies: Yes Past Medical History Surgeries: Yes (CERVICAL FUSION, ENDOSCOPY, COLONOSCOPY, L KIDNEY REMOVAL) Respiratory: No Cardiac: No Neurological: No Reproductive Disorders: No Genitourinary: No Gastrointestinal: Yes Colitis, Gastroesophageal Reflux, Irritable Bowel Musculoskeletal: Yes (HERNIATED DISK,3 FUSED VERTEBRAE,RADIATING NERVE PAIN,NUMBNESS AND TINGLING) Degenerate Disk Disease, Arthritis, Fractures Endocrine: No HEENT: No Tinnitis Cancer: Yes Kidney Psychosocial: Yes ADD/ADHD, Anxiety, Depression Integumentary: Yes Psoriasis Blood Disorders: No Family Medical History Cancer 03 FATHER, Onset:60 years & older Family history: Thyroid disorder 09 SISTER Stroke GRANDMOTHER No Pertinent Family Hx Physical Exam Vital Signs Vital Signs - First Documented 10/18/18 11:48 Temp 99.0 Pulse 92 Resp 16 B/P (MAP) 156/109 (125) Pulse Ox 97 O2 Delivery Room Air Capillary Refill : Less Than 3 Seconds Height, Weight, BMI Height: 6'1.00" Weight: 250lbs. 8.0oz. 113.624206ji; 32.09 BMI Method:Stated General Appearance: No Apparent Distress, WD/WN Eyes: Bilateral Eye Normal Inspection, Bilateral Eye PERRL, Bilateral Eye EOMI HEENT: PERRL/EOMI, TMs Normal Neck: Full Range of Motion, Normal Inspection Respiratory: Normal Breath Sounds, No Accessory Muscle Use, No Respiratory Distress Cardiovascular: Regular Rate, Rhythm, Normal Peripheral Pulses Gastrointestinal: Normal Bowel Sounds, Non Tender, Soft Extremity: Normal Capillary Refill, Normal Inspection Neurologic/Psychiatric: Alert, Oriented x3 Skin: Normal Color, Warm/Dry Progress/Results/Core Measures Suspected Sepsis Recent Fever Within 48 Hours: No Infection Criteria Present: Suspected New Infection New/Unexplained Altered Menta: No Sepsis Screen: No Definite Risk SIRS Temperature:99.0 Pulse: 92 Respiratory Rate: 16 Laboratory Tests 10/18/18 12:06: White Blood Count 9.0 Blood Pressure 156 /109 Mean: 125 Laboratory Tests 10/18/18 12:06: Creatinine 1.22, Platelet Count 265, Total Bilirubin 0.4 Results/Orders Lab Results Laboratory Tests Test 10/18/18 12:06 10/18/18 13:16 Range/Units White Blood Count 9.0 4.3-11.0 10^3/uL Red Blood Count 4.61 4.35-5.85 10^6/uL Hemoglobin 14.2 13.3-17.7 G/DL Hematocrit 43 40-54 % Mean Corpuscular Volume 92 80-99 FL Mean Corpuscular Hemoglobin 31 25-34 PG Mean Corpuscular Hemoglobin Concent 33 32-36 G/DL Red Cell Distribution Width 13.1 10.0-14.5 % Platelet Count 265 130-400 10^3/uL Mean Platelet Volume 10.1 7.4-10.4 FL Neutrophils (%) (Auto) 77 H 42-75 % Lymphocytes (%) (Auto) 14 12-44 % Monocytes (%) (Auto) 8 0-12 % Eosinophils (%) (Auto) 1 0-10 % Basophils (%) (Auto) 0 0-10 % Neutrophils # (Auto) 6.9 1.8-7.8 X 10^3 Lymphocytes # (Auto) 1.3 1.0-4.0 X 10^3 Monocytes # (Auto) 0.7 0.0-1.0 X 10^3 Eosinophils # (Auto) 0.1 0.0-0.3 10^3/uL Basophils # (Auto) 0.0 0.0-0.1 10^3/uL Sodium Level 138 135-145 MMOL/L Potassium Level 3.9 3.6-5.0 MMOL/L Chloride Level 100 98-107 MMOL/L Carbon Dioxide Level 23 21-32 MMOL/L Anion Gap 15 H 5-14 MMOL/L Blood Urea Nitrogen 15 7-18 MG/DL Creatinine 1.22 0.60-1.30 MG/DL Estimat Glomerular Filtration Rate > 60 BUN/Creatinine Ratio 12 Glucose Level 106 H 70-105 MG/DL Calcium Level 9.6 8.5-10.1 MG/DL Corrected Calcium 8.5-10.1 MG/DL Total Bilirubin 0.4 0.1-1.0 MG/DL Aspartate Amino Transf (AST/SGOT) 18 5-34 U/L Alanine Aminotransferase (ALT/SGPT) 24 0-55 U/L Alkaline Phosphatase 89 40-136 U/L Total Protein 8.2 6.4-8.2 GM/DL Albumin 4.6 H 3.2-4.5 GM/DL My Orders Orders - HONORIO CHAMBERS APRN Cbc With Automated Diff (10/18/18 11:59) Comprehensive Metabolic Panel (10/18/18 11:59) Ua Culture If Indicated (10/18/18 11:59) Ed Iv/Invasive Line Start (10/18/18 11:59) Chest 1 View, Ap/Pa Only (10/18/18 11:59) Ct Abdomen/Pelvis W (10/18/18 11:59) Ns Iv 1000 Ml (Sodium Chloride 0.9%) (10/18/18 12:00) Ondansetron Injection (Zofran Injectio (10/18/18 12:00) Ketorolac Injection (Toradol Injection) (10/18/18 12:00) Ns Iv 1000 Ml (Sodium Chloride 0.9%) (10/18/18 12:00) Ondansetron Injection (Zofran Injectio (10/18/18 12:00) Ketorolac Injection (Toradol Injection) (10/18/18 12:00) Iohexol Injection (Omnipaque 350 Mg/Ml 1 (10/18/18 12:30) Received Contrast (Hold Metformin- Contr (10/18/18 12:30) Ns (Ivpb) (Sodium Chloride 0.9% Ivpb Bag (10/18/18 12:30) Medications Given in ED Current Medications Medications Dose Ordered Sig/Joy Route Start Time Stop Time Status Last Admin Dose Admin Iohexol 100 ml ONCE ONCE IV 10/18/18 12:30 10/18/18 12:31 DC 10/18/18 12:40 100 ML Ketorolac Tromethamine 15 mg ONCE ONCE IVP 10/18/18 12:00 10/18/18 12:26 DC 10/18/18 12:14 15 MG Ondansetron HCl 4 mg ONCE ONCE IVP 10/18/18 12:00 10/18/18 12:26 DC 10/18/18 12:14 4 MG Sodium Chloride 100 ml ONCE ONCE IV 10/18/18 12:30 10/18/18 12:31 DC 10/18/18 12:40 80 ML Vital Signs/I&O 10/18/18 11:48 Temp 99.0 Pulse 92 Resp 16 B/P (MAP) 156/109 (125) Pulse Ox 97 O2 Delivery Room Air Capillary Refill : Less Than 3 Seconds Blood Pressure Mean: 125 Departure Communication (Admissions) 1229- patient would like he is to keep his feet warm. He refused the flu swab After telling me that he is concerned that he has the flu. Impression Primary Impression: Viral syndrome Disposition: 01 HOME, SELF-CARE Condition: Stable Departure-Patient Inst. Decision time for Depature: 13:31 Referrals: [facility] (PCP) Primary Care Physician JORGE LUIS MCDANIEL (Family) Primary Care Physician Patient Instructions: Viral Syndrome (DC) Add. Discharge Instructions: All discharge instructions reviewed with patient and/or family. Voiced understanding. HONORIO CHAMBERS APRN Oct 18, 2018 12:04
[2018-10-18 12:14] LABS: BASOPHILS % (AUTO) 0 % (0-10); EOSINOPHILS # (AUTO) 0.1 10^3/uL (0.0-0.3); EOSINOPHILS % (AUTO) 1 % (0-10); HEMATOCRIT 43 % (40-54); HEMOGLOBIN 14.2 G/DL (13.3-17.7); LYMPHOCYTES # (AUTO) 1.3 X 10^3 (1.0-4.0); LYMPHOCYTES % (AUTO) 14 % (12-44); MEAN CORPUSCULAR HEMOGLOBIN 31 PG (25-34); MEAN CORPUSCULAR HGB CONC 33 G/DL (32-36); MEAN CORPUSCULAR VOLUME 92 FL (80-99); MEAN PLATELET VOLUME 10.1 FL (7.4-10.4); MONOCYTES # (AUTO) 0.7 X 10^3 (0.0-1.0); MONOCYTES % (AUTO) 8 % (0-12); NEUTROPHILS # (AUTO) 6.9 X 10^3 (1.8-7.8); NEUTROPHILS % (AUTO) 77 % (42-75); PLATELET COUNT 265 10^3/uL (130-400); RED CELL DISTRIBUTION WIDTH 13.1 % (10.0-14.5)
[2018-10-18 12:30] LABS: ALANINE AMINOTRANSFERASE 24 U/L (0-55); ALBUMIN 4.6 GM/DL (3.2-4.5); ALKALINE PHOSPHATASE 89 U/L (40-136); BILIRUBIN,TOTAL 0.4 MG/DL (0.1-1.0); BUN/CREATININE RATIO 12; CALCIUM 9.6 MG/DL (8.5-10.1); CARBON DIOXIDE 23 MMOL/L (21-32); CHLORIDE 100 MMOL/L (98-107); CREATININE SERUM 1.22 MG/DL (0.60-1.30); GFR ESTIMATED > 60; GLUCOSE 106 MG/DL (70-105); POTASSIUM 3.9 MMOL/L (3.6-5.0); SODIUM 138 MMOL/L (135-145); TOTAL PROTEIN 8.2 GM/DL (6.4-8.2)
[2018-10-18] MEDS ORDERED: HOLD METFORMIN - RECEIVED CONTRAST 20 ML VIAL IV SCH (12:30)
[2018-10-18] MEDS ORDERED: NS 100 ML (IVPB) BAG IV ONE (12:30)
[2018-10-18] MEDS ORDERED: IOHEXOL 350 MG/ML 100 ML (OMNIPAQUE 350) VIAL IV ONE (12:30)
--- NOTE | 2018-10-18 12:38 | Diagnostic Imaging Report ---
Patient History: Bodyaches, nausea and vomiting, night sweats, sore throat, abdominal bloating. Technique: Single frontal view of the chest Comparison: 02/10/2017 FINDINGS: The lung volumes are normal. No focal consolidation is seen. No large pleural effusion or pneumothorax is seen. The cardiomediastinal silhouette is normal in size and contour. No acute osseous abnormality is seen. Cervical spine fusion hardware is noted. IMPRESSION: No acute pulmonary abnormality seen. Dictated by: Dictated on workstation # [id number]
--- NOTE | 2018-10-18 13:18 | Diagnostic Imaging Report ---
PROCEDURE: CT abdomen and pelvis with contrast. TECHNIQUE: Multiple contiguous axial images were obtained through the abdomen and pelvis after administration of intravenous contrast. Auto Exposure Controls were utilized during the CT exam to meet ALARA standards for radiation dose reduction. INDICATION: Abdominal pain, nausea and vomiting FINDINGS: The liver is of lower-density than is usually seen. This does suggest fatty metamorphosis. The appearance of the liver is similar to the prior exam of 11/16/2006. The spleen, pancreas, adrenals, gallbladder, kidneys, aorta and inferior vena cava show no sign of an acute abnormality. 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 There is some irregularity of the left kidney and the small 1.7 cm nodular density along the left kidney seen previously is no longer evident. There is no sign of a recurrent mass in this area. The stomach is not well-distended and consequently difficult to assess. There is no pelvic mass or free fluid collection evident. The urinary bladder and prostate gland are grossly unremarkable. The appendix was visualized and is not abnormally thickened. The bone windows show no evidence for a fracture or for a destructive lesion. There is fairly severe degenerative disc and bony disease at L5-S1 and, to a lesser degree, at L4-5. The lung bases are clear. IMPRESSION: 1. There is no acute abnormality of the abdomen or pelvis. 2. The appearance of the left kidney is most likely a sequela of the patient's interval surgical procedure. There is no sign of recurrent malignancy involving the left kidney. Dictated by: Dictated on workstation # [id number]
[2018-10-18 13:30] LABS: BILIRUBIN,URINE NEGATIVE (NEGATIVE); CLARITY,URINE CLEAR; COLOR,URINE YELLOW; GLUCOSE, URINE (UA) NEGATIVE (NEGATIVE); KETONES,URINE 2+ (NEGATIVE); LEUKOCYTE ESTERASE ,URINE NEGATIVE (NEGATIVE); NITRITE,URINE NEGATIVE (NEGATIVE); PH,URINE 7 (5-9); PROTEIN,URINE 1+ (NEGATIVE); UROBILINOGEN,URINE NORMAL (NORMAL)
[2018-10-18 13:43] LABS: BACTERIA,URINE TRACE /HPF
[2018-10-18 13:58] VITALS: BP 126/89
== END 2018-10-18 13:58 | disposition home or self-care (01) ==
LOC: EDUNIT# 11:44 → ER 11:46
DX: B34.9 Viral infection, unspecified (principal); K58.9 Irritable bowel syndrome, unspecified; K21.9 Gastro-esophageal reflux disease without esophagitis; F41.9 Anxiety disorder, unspecified; F90.9 Attention-deficit hyperactivity disorder, unspecified type; F32.9 Major depressive disorder, single episode, unspecified; Z88.2 Allergy status to sulfonamides; Z88.1 Allergy status to other antibiotic agents; Z88.8 Allergy status to other drugs, medicaments and biological substances; Z98.1 Arthrodesis status; Z98.890 Other specified postprocedural states; Z85.528 Personal history of other malignant neoplasm of kidney
CPT/HCPCS: 36415; 71045; 74177; 80053; 81000; 85025

== ENCOUNTER 2018-12-23 12:56 | Emergency (ER) | payer MEDICARE ==
[~2018-12-23] VITALS: Ht 185 cm; Wt 114.4 kg
--- NOTE | 2018-12-23 13:48 | NUR ---
NOTIFIED OF BUSY ER WITH LONG WAIT TIMES
--- NOTE | 2018-12-23 14:30 | NUR ---
NOTIFIED OF CONTINUED BUSY ER WITH LONG WAIT TIME.
--- NOTE | 2018-12-23 14:47 | NUR ---
HEALTH DEPT NOTIFEID OF DOG BITE.
--- NOTE | 2018-12-23 15:13 | ED Upper Extremity ---
General Chief Complaint: Bite-Animal/Human/Insect Stated Complaint: DOG BITE Nursing Triage Note: ARRIVED VIA POV FROM HOME. PT STATES HE WAS BIT ON RIGHT HAND, LEFT THUMB AND RIGHT FOOT BY A NEIGHBORS DOG. POLICE WAS CALLED BY THE PT. Nursing Sepsis Screen: No Definite Risk Source: patient History of Present Illness Date Seen by Provider: Dec 23, 2018 Time Seen by Provider: 14:30 Initial Comments This is a 48 year old male who comes to the ER reporting his neighbor's dog bit him this morning. He reports that he was wearing gloves at the time of the attack. Superficial abrasion to the right wrist laterally (ulnar process) about 1 cm in size, no bleeding, no hematoma noted. He reports the dog has been detained at one of the local pet stores awaiting for proof of vaccination. Reports receiving tetanus vaccination in 2014. Location Injury Occurred: Right wrist Onset: just prior to arrival Severity: mild Pain/Injury Location: right wrist, right 2nd finger (small scratch) Method of Injury: other (Dog Bite) Modifying Factors: Improves With Rest Allergies and Home Medications Allergies Coded Allergies: sulfamethoxazole (Verified Allergy, Unknown, 01/01/13) trimethoprim (Verified Allergy, Unknown, 01/01/13) eszopiclone (Verified Adverse Reaction, Unknown, MAKES EVERYTHING TASTE BAD, 10/18/18) Home Medications Amoxicillin/Potassium Clav 1 Each Tablet, 1 EACH PO BID Prescribed by: BARBARA SCHWAB on 12/23/18 1538 Cetirizine HCl 10 Mg Tablet, 10 MG PO DAILY Prescribed by: ILEANA DAY on 10/04/13 1451 Cetirizine Hcl 10 Mg Tablet, 10 MG PO DAILY, (Reported) Desvenlafaxine Succinate 50 Mg Tab.sr.24h, 50 MG PO DAILY Prescribed by: ILEANA DAY on 10/04/13 1451 Metoprolol Succinate 25 Mg Tab.er.24h, 25 MG PO DAILY Prescribed by: HONORIO CHAMBERS on 11/30/14 214 Patient Home Medication List Home Medication List Reviewed: Yes Review of Systems Constitutional: no symptoms reported, see HPI Respiratory: no symptoms reported, see HPI Cardiovascular: no symptoms reported, see HPI Musculoskeletal: no symptoms reported, see HPI Skin: see HPI, lesions (1 cm superficial skin laceration over the right wrist (ulnar process). Some scratches on right 2 finger.) All Other Systems Reviewed Negative Unless Noted: Yes Past Nnstrex-Xtnypz-Rmoeeb Hx Past Med/Social Hx: Reviewed Nursing Past Med/Soc Hx Patient Social History Alcohol Use: Denies Use Recreational Drug Use: No 2nd Hand Smoke Exposure: No Recent Foreign Travel: No Contact w/Someone Who Travel: No Recent Infectious Disease Expo: No Recent Hopitalizations: No Immunizations Up To Date Tetanus Booster (TDap): Less than 5yrs Seasonal Allergies Seasonal Allergies: Yes Past Medical History Surgeries: Yes (CERVICAL FUSION, ENDOSCOPY, COLONOSCOPY, L KIDNEY REMOVAL) Respiratory: No Cardiac: No Neurological: No Reproductive Disorders: No Genitourinary: No Gastrointestinal: Yes Colitis, Gastroesophageal Reflux, Irritable Bowel Musculoskeletal: Yes (HERNIATED DISK,3 FUSED VERTEBRAE,RADIATING NERVE PAIN,NUMBNESS AND TINGLING) Degenerate Disk Disease, Arthritis, Fractures Endocrine: No HEENT: No Tinnitis Cancer: Yes Kidney Psychosocial: Yes ADD/ADHD, Anxiety, Depression Integumentary: Yes Psoriasis Blood Disorders: No Family Medical History Cancer 03 FATHER, Onset:60 years & older Family history: Thyroid disorder 09 SISTER Stroke GRANDMOTHER No Pertinent Family Hx Physical Exam Vital Signs Vital Signs - First Documented 12/23/18 13:48 Temp 36.5 Pulse 95 Resp 16 B/P (MAP) 135/91 (106) Pulse Ox 99 O2 Delivery Room Air Capillary Refill : Less Than 3 Seconds Height, Weight, BMI Height: 6'1.00" Weight: 250lbs. 8.0oz. 113.602240dx; 33.00 BMI Method:Stated General Appearance: WD/WN, no apparent distress Cardiovascular: normal peripheral pulses, regular rate, rhythm Respiratory: chest non-tender, lungs clear, normal breath sounds Elbow/Forearm: normal inspection, Right, Left Wrist: Yes normal ROM, Yes abrasions (Rigt wrist abrasion over the ulna process. ); No bone tenderness, No deformity, No limited ROM; Yes soft tissue tenderness; No swelling Hand: normal inspection, Bilateral (Equal radial pulses, equal hand strength, cap refill < 2 sec) Neurologic/Tendon: normal sensation, normal motor functions, normal tendon functions, responds to pain, no evidence tendon injury Neurologic/Psychiatric: no motor/sensory deficits, alert, normal mood/affect, oriented x 3 Procedures/Interventions Wound Location: Lower Extremities, Upper Extremities (Righ wrist, over the ulnar process) Wound Length (cm): 1 Wound's Depth, Shape: superficial, linear Wound Explored: clean Irrigated w/ Saline (ccs): 50 Progress Irrigated with 1000 sterile saline with hibiclens. Sterile dressing applied. Progress/Results/Core Measures Results/Orders My Orders Orders - BARBARA SCHWAB Hand, Right, 3 Views (12/23/18 14:57) Vital Signs/I&O 12/23/18 12/23/18 13:48 15:57 Temp 36.5 36.5 Pulse 95 95 Resp 16 16 B/P (MAP) 135/91 (106) 135/91 (106) Pulse Ox 99 99 O2 Delivery Room Air Blood Pressure Mean: 106 POS Departure Impression Primary Impression: Bite by animal Disposition: HOME, SELF-CARE Condition: Improved Departure-Patient Inst. Decision time for Depature: 15:20 Referrals: [facility] (PCP) Primary Care Physician JORGE LUIS MCDANIEL (Family) Primary Care Physician Patient Instructions: Animal Bites (DC) Add. Discharge Instructions: Rinse wound with peroxide and apply triple antibiotic ointment 3 times daily. Take antibiotic as directed Follow up with your Primary Care provider if reddness, warmth, increased pain, Temp over 101 despite Tylenol and Ibuprofen, or discolored drainage. You may alternate between Ibuprofen 600 mg and Tylenol 650 mg every 4 hours. Return to emergency dept for new, urgent health care needs. All discharge instructions reviewed with patient and/or family. Voiced understanding. Scripts Amoxicillin/Potassium Clav (Augmentin 875-125 Tablet) 1 Each Tablet 1 EACH PO BID, #20 TAB 0 Refills Prov: BARBARA SCHWAB 12/23/18 BARBARA SCHWAB Dec 23, 2018 15:13 POS
--- NOTE | 2018-12-23 15:19 | Diagnostic Imaging Report ---
Indication: Dog bite to right hand AP, oblique and lateral views of the right hand are obtained. FINDINGS: No acute fracture or dislocation is identified. No abnormal lytic or sclerotic focus is seen, and there is no radiopaque foreign body. IMPRESSION: No acute abnormality. Dictated by: Dictated on workstation # [id number]
[2018-12-23] MEDS ORDERED: AMOX-358 PO (15:38)
[2018-12-23 15:57] VITALS: BP 135/91
== END 2018-12-23 15:57 | disposition home or self-care (01) ==
LOC: EDUNIT# 12:56 → ER 12:57
DX: S61.551A Open bite of right wrist, initial encounter (principal); K21.9 Gastro-esophageal reflux disease without esophagitis; K58.9 Irritable bowel syndrome, unspecified; F90.9 Attention-deficit hyperactivity disorder, unspecified type; F41.9 Anxiety disorder, unspecified; F32.9 Major depressive disorder, single episode, unspecified; Z85.528 Personal history of other malignant neoplasm of kidney; Z88.2 Allergy status to sulfonamides; Z88.1 Allergy status to other antibiotic agents; Z88.8 Allergy status to other drugs, medicaments and biological substances; Z90.5 Acquired absence of kidney; W54.0XXA Bitten by dog, initial encounter
CPT/HCPCS: 73130

== ENCOUNTER 2019-01-12 10:15 | Emergency (ER) | payer MEDICARE ==
[~2019-01-12] VITALS: Ht 180 cm; Wt 113.0 kg
[~2019-01-12 10:15] MED LIST changes: +AMOX-358 PO
[2019-01-12] MEDS ORDERED: diphenhydrAMINE 25 MG TAB (BENADRYL) PO ONE (10:45)
[2019-01-12] MEDS ORDERED: cloNIDine 0.1 MG (CATAPRES) TAB PO ONE (10:45)
[2019-01-12] MEDS ORDERED: ONDANSETRON 4 MG (ZOFRAN) ORAL DISSOLVE TAB PO ONE (10:45)
--- NOTE | 2019-01-12 10:46 | ED General ---
General Stated Complaint: ITCHY;NAUSEA;BURNING SKIN Source of Information: Patient Exam Limitations: No Limitations History of Present Illness Date Seen by Provider: Jan 12, 2019 Time Seen by Provider: 10:44 Initial Comments To ER by private vehicle with reports of itchy skin, nausea, restlessness and sensation of withdrawals. He's been on oxycodone 10/325 and recently had these refilled but states it was the same strength different brand that was filled 2-3 days ago. Since then he's been having these symptoms. The pills look different than they used to. Timing/Duration: 2-3 Days Severity: Moderate Associated Systoms: Denies Symptoms Allergies and Home Medications Allergies Coded Allergies: sulfamethoxazole (Verified Allergy, Unknown, 01/01/13) trimethoprim (Verified Allergy, Unknown, 01/01/13) eszopiclone (Verified Adverse Reaction, Unknown, MAKES EVERYTHING TASTE BAD, 10/18/18) Home Medications Amoxicillin/Potassium Clav 1 Each Tablet, 1 EACH PO BID Prescribed by: BARBARA SCHWAB on 12/23/18 1538 Cetirizine HCl 10 Mg Tablet, 10 MG PO DAILY Prescribed by: ILEANA DAY on 10/04/13 1451 Cetirizine Hcl 10 Mg Tablet, 10 MG PO DAILY, (Reported) Desvenlafaxine Succinate 50 Mg Tab.sr.24h, 50 MG PO DAILY Prescribed by: ILEANA DAY on 10/04/13 1451 Metoprolol Succinate 25 Mg Tab.er.24h, 25 MG PO DAILY Prescribed by: HONORIO CHAMBERS on 11/30/14 2145 Patient Home Medication List Home Medication List Reviewed: Yes Review of Systems Review of Systems Constitutional: see HPI EENTM: see HPI Respiratory: no symptoms reported Cardiovascular: no symptoms reported Genitourinary: no symptoms reported Musculoskeletal: no symptoms reported Skin: no symptoms reported Psychiatric/Neurological: No Symptoms Reported Hematologic/Lymphatic: No Symptoms Reported Past Rlmnafb-Wwrfsy-Svlgiu Hx Patient Social History 2nd Hand Smoke Exposure: No Recent Hopitalizations: No Immunizations Up To Date Tetanus Booster (TDap): Less than 5yrs Seasonal Allergies Seasonal Allergies: Yes Past Medical History Surgeries: Yes (CERVICAL FUSION, ENDOSCOPY, COLONOSCOPY, L KIDNEY REMOVAL) Respiratory: No Cardiac: No Neurological: No Reproductive Disorders: No Genitourinary: No Gastrointestinal: Yes Colitis, Gastroesophageal Reflux, Irritable Bowel Musculoskeletal: Yes (HERNIATED DISK,3 FUSED VERTEBRAE,RADIATING NERVE PAIN,NUMBNESS AND TINGLING) Degenerate Disk Disease, Arthritis, Fractures Endocrine: No HEENT: No Tinnitis Cancer: Yes Kidney Psychosocial: Yes ADD/ADHD, Anxiety, Depression Integumentary: Yes Psoriasis Blood Disorders: No Family Medical History Cancer 03 FATHER, Onset:60 years & older Family history: Thyroid disorder 09 SISTER Stroke GRANDMOTHER No Pertinent Family Hx Physical Exam Vital Signs Vital Signs - First Documented 01/12/19 10:37 Temp 36.4 Pulse 118 Resp 20 B/P (MAP) 146/105 (119) Pulse Ox 98 Capillary Refill : Height, Weight, BMI Height: 6'1.00" Weight: 250lbs. 8.0oz. [id number]; 33.00 BMI Method:Stated General Appearance: No Apparent Distress, WD/WN, Anxious Eyes: Bilateral Eye Normal Inspection, Bilateral Eye PERRL, Bilateral Eye EOMI HEENT: PERRL/EOMI, TMs Normal Neck: Full Range of Motion, Normal Inspection Respiratory: Normal Breath Sounds, No Accessory Muscle Use, No Respiratory Distress Cardiovascular: Regular Rate, Rhythm, No Murmur Gastrointestinal: Non Tender, Soft Extremity: Normal Capillary Refill, Normal Inspection Neurologic/Psychiatric: Alert, Oriented x3 Skin: Normal Color, Warm/Dry Progress/Results/Core Measures Suspected Sepsis SIRS Temperature: Pulse: Respiratory Rate: Laboratory Tests 01/12/19 11:00: White Blood Count 9.4 Blood Pressure / Mean: Laboratory Tests 01/12/19 11:00: Creatinine 1.17, Platelet Count 257, Total Bilirubin 0.3 Results/Orders Lab Results Laboratory Tests Test 01/12/19 11:00 01/12/19 12:36 Range/Units White Blood Count 9.4 4.3-11.0 10^3/uL Red Blood Count 4.69 4.35-5.85 10^6/uL Hemoglobin 14.6 13.3-17.7 G/DL Hematocrit 43 40-54 % Mean Corpuscular Volume 92 80-99 FL Mean Corpuscular Hemoglobin 31 25-34 PG Mean Corpuscular Hemoglobin Concent 34 32-36 G/DL Red Cell Distribution Width 13.0 10.0-14.5 % Platelet Count 257 130-400 10^3/uL Mean Platelet Volume 10.3 7.4-10.4 FL Neutrophils (%) (Auto) 93 H 42-75 % Lymphocytes (%) (Auto) 6 L 12-44 % Monocytes (%) (Auto) 1 0-12 % Eosinophils (%) (Auto) 0 0-10 % Basophils (%) (Auto) 0 0-10 % Neutrophils # (Auto) 8.7 H 1.8-7.8 X 10^3 Lymphocytes # (Auto) 0.6 L 1.0-4.0 X 10^3 Monocytes # (Auto) 0.1 0.0-1.0 X 10^3 Eosinophils # (Auto) 0.0 0.0-0.3 10^3/uL Basophils # (Auto) 0.0 0.0-0.1 10^3/uL Neutrophils % (Manual) 95 % Lymphocytes % (Manual) 4 % Monocytes % (Manual) 1 % Blood Morphology Comment NORMAL Sodium Level 137 135-145 MMOL/L Potassium Level 4.8 3.6-5.0 MMOL/L Chloride Level 100 98-107 MMOL/L Carbon Dioxide Level 25 21-32 MMOL/L Anion Gap 12 5-14 MMOL/L Blood Urea Nitrogen 19 H 7-18 MG/DL Creatinine 1.17 0.60-1.30 MG/DL Estimat Glomerular Filtration Rate > 60 BUN/Creatinine Ratio 16 Glucose Level 160 H 70-105 MG/DL Calcium Level 10.3 H 8.5-10.1 MG/DL Corrected Calcium 8.5-10.1 MG/DL Total Bilirubin 0.3 0.1-1.0 MG/DL Aspartate Amino Transf (AST/SGOT) 23 5-34 U/L Alanine Aminotransferase (ALT/SGPT) 40 0-55 U/L Alkaline Phosphatase 82 40-136 U/L Total Protein 8.0 6.4-8.2 GM/DL Albumin 4.7 H 3.2-4.5 GM/DL Urine Color YELLOW Urine Clarity CLEAR Urine pH 8.5 5-9 Urine Specific [place] 1.015 L 1.016-1.022 Urine Protein 2+ H NEGATIVE Urine Glucose (UA) NEGATIVE NEGATIVE Urine Ketones 1+ H NEGATIVE Urine Nitrite NEGATIVE NEGATIVE Urine Bilirubin NEGATIVE NEGATIVE Urine Urobilinogen 0.2 < = 1.0 MG/DL Urine Leukocyte Esterase NEGATIVE NEGATIVE Urine RBC (Auto) NEGATIVE NEGATIVE Urine RBC RARE /HPF Urine WBC NONE /HPF Urine Squamous Epithelial Cells RARE /HPF Urine Crystals NONE /LPF Urine Bacteria NEGATIVE /HPF Urine Casts NONE /LPF Urine Mucus NEGATIVE /LPF Urine Culture Indicated NO Urine Opiates Screen NEGATIVE NEGATIVE Urine Oxycodone Screen POSITIVE H NEGATIVE Urine Methadone Screen NEGATIVE NEGATIVE Urine Propoxyphene Screen NEGATIVE NEGATIVE Urine Barbiturates Screen NEGATIVE NEGATIVE Ur Tricyclic Antidepressants Screen POSITIVE H NEGATIVE Urine Phencyclidine Screen NEGATIVE NEGATIVE Urine Amphetamines Screen NEGATIVE NEGATIVE Urine Methamphetamines Screen NEGATIVE NEGATIVE Urine Benzodiazepines Screen POSITIVE H NEGATIVE Urine Cocaine Screen NEGATIVE NEGATIVE Urine Cannabinoids Screen NEGATIVE NEGATIVE My Orders Orders - HONORIO CHAMBERS ACADEMIC ADVISER Cbc With Automated Diff (01/12/19 10:43) Comprehensive Metabolic Panel (01/12/19 10:43) Ua Culture If Indicated (01/12/19 10:43) Drug Screen Stat (Urine) (01/12/19 10:43) Clonidine Tablet (Catapres Tablet) (01/12/19 10:45) Diphenhydramine Tablet (Benadryl Tablet) (01/12/19 10:45) Ondansetron Oral Dissolve Tab (Zofran (01/12/19 10:45) Manual Differential (01/12/19 11:00) Ct Abdomen/Pelvis Wo (01/12/19 11:16) Alprazolam Tablet (Xanax Tablet) (01/12/19 12:15) Medications Given in ED Current Medications Medications Dose Ordered Sig/Joy Route Start Time Stop Time Status Last Admin Dose Admin Clonidine HCl 0.1 mg ONCE ONCE PO 01/12/19 10:45 01/12/19 10:46 DC 01/12/19 11:03 0.1 MG Diphenhydramine HCl 50 mg ONCE ONCE PO 01/12/19 10:45 01/12/19 10:46 DC 01/12/19 11:03 50 MG Ondansetron HCl 8 mg ONCE ONCE PO 01/12/19 10:45 01/12/19 10:46 DC 01/12/19 11:01 8 MG Vital Signs/I&O 01/12/19 10:37 Temp 36.4 Pulse 118 Resp 20 B/P (MAP) 146/105 (119) Pulse Ox 98 Capillary Refill : Diagnostic Imaging Diagonstic Imaging: CT Comments NAME: RUBEN SRIVASTAVA MED REC#: [id number] PT STATUS: REG ER : 1970 PHYSICIAN: HONORIO CHAMBERS APRN ADMIT DATE: 01/12/19/ER Draft POSDate of Exam:01/12/19 CT ABDOMEN/PELVIS WO PROCEDURE: CT abdomen and pelvis without contrast. TECHNIQUE: Multiple contiguous axial images were obtained through the abdomen and pelvis without the use of intravenous contrast. Auto Exposure Controls were utilized during the CT exam to meet ALARA standards for radiation dose reduction. INDICATION: Nausea, pain, bloating, constipation, history of partial left nephrectomy for treatment of malignancy. COMPARISON: Exam compared with contrast-enhanced study of 10/18/2018. FINDINGS: Postinterventional changes to the left renal cortex posterolaterally, stable. No fluid collection. The right kidney is nonfocal. There is no hydroureteronephrosis. No findings to suggest solid or cystic renal mass at this unenhanced exam. The liver, spleen, adrenals, pancreas, gallbladder, and bile ducts are unremarkable. The aorta is nonaneurysmal. The appendix is normal. There is no ascites, abscess, hematoma, or fluid collection. No pneumatosis or free gas. No mesenteric or retroperitoneal lymphadenopathy. IMPRESSION: Stable post-therapeutic changes to the left kidney. No obstructive features, inflammatory process, fluid collection, or acute findings. Dictated on workstation # [id number] Dict: 01/12/19 1149 Trans: 01/12/19 1159 [id number] Interpreted by: ROBERT SEVILLA Electronically signed by: Departure Communication (Admissions) 1213-denies improvement states he is feeling a little more anxious now. 1311-feeling a little bit better, we will discharge home, have him follow-up with [facility] tomorrow at 10:40 AM. Impression Primary Impression: General symptom Additional Impression: Anxiety Disposition: 01 HOME, SELF-CARE Condition: Stable Departure-Patient Inst. Decision time for Depature: 13:09 Referrals: [facility] (PCP) Primary Care Physician JORGE LUIS MCDANIEL (Family) Primary Care Physician Patient Instructions: Anxiety, Adult (DC) Add. Discharge Instructions: 1. Follow-up with your health as scheduled tomorrow morning at 10:40 AM 2. Return to ER for any concerns 3. Copy Copies To 1: CLARISSE AQUINO PETER J APRN Jan 12, 2019 10:46 POS
[2019-01-12 11:11] LABS: BASOPHILS % (AUTO) 0 % (0-10); EOSINOPHILS % (AUTO) 0 % (0-10); HEMATOCRIT 43 % (40-54); HEMOGLOBIN 14.6 G/DL (13.3-17.7); LYMPHOCYTES # (AUTO) 0.6 X 10^3 (1.0-4.0); LYMPHOCYTES % (AUTO) 6 % (12-44); MEAN CORPUSCULAR HEMOGLOBIN 31 PG (25-34); MEAN CORPUSCULAR HGB CONC 34 G/DL (32-36); MEAN CORPUSCULAR VOLUME 92 FL (80-99); MEAN PLATELET VOLUME 10.3 FL (7.4-10.4); MONOCYTES # (AUTO) 0.1 X 10^3 (0.0-1.0); MONOCYTES % (AUTO) 1 % (0-12); NEUTROPHILS # (AUTO) 8.7 X 10^3 (1.8-7.8); NEUTROPHILS % (AUTO) 93 % (42-75); PLATELET COUNT 257 10^3/uL (130-400); WHITE BLOOD COUNT 9.4 10^3/uL (4.3-11.0)
[2019-01-12 11:29] LABS: ALANINE AMINOTRANSFERASE 40 U/L (0-55); ALBUMIN 4.7 GM/DL (3.2-4.5); ALKALINE PHOSPHATASE 82 U/L (40-136); BILIRUBIN,TOTAL 0.3 MG/DL (0.1-1.0); BUN/CREATININE RATIO 16; CALCIUM 10.3 MG/DL (8.5-10.1); CARBON DIOXIDE 25 MMOL/L (21-32); CHLORIDE 100 MMOL/L (98-107); CREATININE SERUM 1.17 MG/DL (0.60-1.30); GFR ESTIMATED > 60; GLUCOSE 160 MG/DL (70-105); POTASSIUM 4.8 MMOL/L (3.6-5.0); SODIUM 137 MMOL/L (135-145)
[2019-01-12 11:53] LABS: LYMPHOCYTES % (MANUAL) 4 %; MONOCYTES % (MANUAL) 1 %; NEUTROPHILS % (MANUAL) 95 %
[2019-01-12 11:54] LABS: RBC MORPH NORMAL
--- NOTE | 2019-01-12 11:59 | Diagnostic Imaging Report ---
PROCEDURE: CT abdomen and pelvis without contrast. TECHNIQUE: Multiple contiguous axial images were obtained through the abdomen and pelvis without the use of intravenous contrast. Auto Exposure Controls were utilized during the CT exam to meet ALARA standards for radiation dose reduction. INDICATION: Nausea, pain, bloating, constipation, history of partial left nephrectomy for treatment of malignancy. COMPARISON: Exam compared with contrast-enhanced study of 10/18/2018. FINDINGS: Postinterventional changes to the left renal cortex posterolaterally, stable. No fluid collection. The right kidney is nonfocal. There is no hydroureteronephrosis. No findings to suggest solid or cystic renal mass at this unenhanced exam. The liver, spleen, adrenals, pancreas, gallbladder, and bile ducts are unremarkable. The aorta is nonaneurysmal. The appendix is normal. There is no ascites, abscess, hematoma, or fluid collection. No pneumatosis or free gas. No mesenteric or retroperitoneal lymphadenopathy. IMPRESSION: Stable post-therapeutic changes to the left kidney. No obstructive features, inflammatory process, fluid collection, or acute findings. Dictated by: Dictated on workstation # [id number]
[2019-01-12] MEDS ORDERED: ALPRAZolam 0.5 MG (XANAX) TAB PO SCH (12:15)
[2019-01-12 12:45] LABS: BILIRUBIN,URINE NEGATIVE (NEGATIVE); CLARITY,URINE CLEAR; COLOR,URINE YELLOW; GLUCOSE, URINE (UA) NEGATIVE (NEGATIVE); KETONES,URINE 1+ (NEGATIVE); LEUKOCYTE ESTERASE ,URINE NEGATIVE (NEGATIVE); NITRITE,URINE NEGATIVE (NEGATIVE); PH,URINE 8.5 (5-9); PROTEIN,URINE 2+ (NEGATIVE)
[2019-01-12 12:55] LABS: BACTERIA,URINE NEGATIVE /HPF; RBC,URINE RARE /HPF; SQUAMOUS EPITHELIAL CELL,UR RARE /HPF
[2019-01-12 13:04] LABS: AMPHETAMINE SCREEN, URINE NEGATIVE (NEGATIVE); BARBITURATE SCREEN URINE NEGATIVE (NEGATIVE); BENZODIAZEPINES SCREEN URINE POSITIVE (NEGATIVE); CANNABINOID SCREEN, URINE NEGATIVE (NEGATIVE); COCAINE SCREEN URINE NEGATIVE (NEGATIVE); METHADONE STAT NEGATIVE (NEGATIVE); METHAMPHETAMINE SCREEN URINE S NEGATIVE (NEGATIVE); OPIATE SCREEN URINE NEGATIVE (NEGATIVE); OXYCODONE STAT POSITIVE (NEGATIVE); PROPOXYPHENE STAT NEGATIVE (NEGATIVE); TRICYCLIC ANTIDEPRESSANTS SCRE POSITIVE (NEGATIVE)
[2019-01-12 13:24] VITALS: BP 146/105
== END 2019-01-12 13:24 | disposition home or self-care (01) ==
LOC: EDUNIT# 10:15 → ER 10:16
DX: F41.9 Anxiety disorder, unspecified (principal); R68.89 Other general symptoms and signs; K21.9 Gastro-esophageal reflux disease without esophagitis; K58.9 Irritable bowel syndrome, unspecified; F90.9 Attention-deficit hyperactivity disorder, unspecified type; F32.9 Major depressive disorder, single episode, unspecified; Z85.528 Personal history of other malignant neoplasm of kidney; Z88.2 Allergy status to sulfonamides; Z88.1 Allergy status to other antibiotic agents; Z88.8 Allergy status to other drugs, medicaments and biological substances; Z90.5 Acquired absence of kidney
CPT/HCPCS: 36415; 74176; 80053; 80306; 81000; 85007; 85027

== ENCOUNTER 2020-03-11 11:08 | Emergency (ER) | payer MEDICARE ==
[~2020-03-11] VITALS: Ht 185.4 cm; Wt 120.0 kg
--- NOTE | 2020-03-11 12:27 | Diagnostic Imaging Report ---
CLINICAL INDICATION: Patient with anxiety worse since yesterday. Patient had Ativan. EXAM: Portable chest x-ray upright view. COMPARISONS: Chest x-ray dated 10/18/2018. FINDINGS: Lungs/pleura: Lungs are clear. There is no pneumothorax. There is no pleural effusion. Mediastinum: Unremarkable. Pulmonary vasculature: Unremarkable. Heart: Unremarkable. Bones/extrathoracic soft tissue: Anterior cervical disc fusion hardware again seen overlying the lower cervical spine. IMPRESSION: There is no radiographic evidence of acute cardiopulmonary process. Dictated by: Dictated on workstation # [id number]
[2020-03-11 12:34] LABS: BASOPHILS % (AUTO) 0 % (0-10); EOSINOPHILS % (AUTO) 0 % (0-10); HEMATOCRIT 44 % (40-54); HEMOGLOBIN 14.7 g/dL (13.3-17.7); LYMPHOCYTES # (AUTO) 1.1 10^3/uL (1.0-4.0); LYMPHOCYTES % (AUTO) 9 % (12-44); MEAN CORPUSCULAR HEMOGLOBIN 31 pg (25-34); MEAN CORPUSCULAR HGB CONC 33 g/dL (32-36); MEAN CORPUSCULAR VOLUME 93 fL (80-99); MEAN PLATELET VOLUME 10.1 fL (9.0-12.2); MONOCYTES # (AUTO) 0.5 10^3/uL (0.0-1.0); MONOCYTES % (AUTO) 3 % (0-12); NEUTROPHILS # (AUTO) 11.5 10^3/uL (1.8-7.8); NEUTROPHILS % (AUTO) 88 % (42-75); PLATELET COUNT 296 10^3/uL (130-400); WHITE BLOOD COUNT 13.2 10^3/uL (4.3-11.0)
[2020-03-11] MEDS ORDERED: LORazepam 0.5 MG (ATIVAN) TABLET PO STA (12:43)
--- NOTE | 2020-03-11 12:43 | ED Psychosocial ---
General Chief Complaint: Psych/Social Disorder Stated Complaint: ANXIETY/LACK OF SLEEP Nursing Triage Note: pt states he has had increased anxiety lately, worse since yesterday. states he ran out of his lorazpam, took atarax and flexeril this am. History of Present Illness Date Seen by Provider: Mar 11, 2020 Time Seen by Provider: 11:20 Initial Comments Patient is a 49-year-old male who presents to the emergency department today with a chief complaint of anxiety and difficulty sleeping since yesterday. Patient states that he has lost his primary care practitioner. Patient states that he has been out of his medications for a couple of days. He states he was unable to sleep last night secondary to anxiety and also chest "tightness". This pain is nonradiating but is somewhat up into his suprasternal notch. He also complains of feeling his heart "jumping". He denies shortness of breath or nausea. Patient is frustrated that he is out of his 2 mg lorazepam that he takes 3 times a day. He states he attempted to take Benadryl last night to sleep as well as his other home medications, Flexeril and Atarax. He denies recent fevers, chills, productive cough. He denies abdominal pain, problems with urination or problems with bowel movements. All other review of systems reviewed and negative except as stated above. Timing/Duration: yesterday Severity: moderate Associated Symptoms: anxiety, insomnia Allergies and Home Medications Allergies Coded Allergies: sulfamethoxazole (Verified Allergy, Unknown, 01/01/13) trimethoprim (Verified Allergy, Unknown, 01/01/13) eszopiclone (Verified Adverse Reaction, Unknown, MAKES EVERYTHING TASTE BAD, 10/18/18) Home Medications Amoxicillin/Potassium Clav 1 Each Tablet, 1 EACH PO BID Prescribed by: BARBARA SCHWAB on 12/23/18 1538 Cetirizine HCl 10 Mg Tablet, 10 MG PO DAILY Prescribed by: ILEANA DAY on 10/04/13 1451 Cetirizine Hcl 10 Mg Tablet, 10 MG PO DAILY, (Reported) Desvenlafaxine Succinate 50 Mg Tab.sr.24h, 50 MG PO DAILY Prescribed by: ILEANA DAY on 10/04/13 1451 Metoprolol Succinate 25 Mg Tab.er.24h, 25 MG PO DAILY Prescribed by: HONORIO CHAMBERS on 11/30/142144 Patient Home Medication List Home Medication List Reviewed: Yes Review of Systems Constitutional: see HPI EENTM: no symptoms reported Respiratory: no symptoms reported Cardiovascular: other ("Chest tightness") Gastrointestinal: no symptoms reported Genitourinary: no symptoms reported Musculoskeletal: no symptoms reported Skin: no symptoms reported All Other Systems Reviewed Negative Unless Noted: Yes Past Uodqnqi-Yyaapd-Xbiyoy Hx Patient Social History Alcohol Use: Denies Use Smoking Status: Never a Smoker 2nd Hand Smoke Exposure: No Recent Infectious Disease Expo: No Recent Hopitalizations: No Immunizations Up To Date Tetanus Booster (TDap): Less than 5yrs Seasonal Allergies Seasonal Allergies: Yes Past Medical History Surgeries: Yes (CERVICAL FUSION, ENDOSCOPY, COLONOSCOPY, L KIDNEY REMOVAL) Respiratory: No Cardiac: Yes Hypertension Neurological: No Reproductive Disorders: No Genitourinary: Yes (kidney cancer) Gastrointestinal: Yes Colitis, Gastroesophageal Reflux, Irritable Bowel Musculoskeletal: Yes (HERNIATED DISK,3 FUSED VERTEBRAE,RADIATING NERVE PAIN,NUMBNESS AND TINGLING) Degenerate Disk Disease, Arthritis, Fractures Endocrine: No HEENT: No Tinnitis Cancer: Yes Kidney Psychosocial: Yes ADD/ADHD, Anxiety, Depression Integumentary: Yes Psoriasis Blood Disorders: No Family Medical History Cancer 03 FATHER, Onset:60 years & older Family history: Thyroid disorder 09 SISTER Stroke GRANDMOTHER No Pertinent Family Hx Physical Exam Vital Signs - First Documented 03/11/20 11:20 Temp 35.8 Pulse 77 Resp 16 B/P (MAP) 135/88 (104) Capillary Refill : Greater Than 3 Seconds Height, Weight, BMI Height: 6'1.00" Weight: 250lbs. 8.0oz. 113.280687cd; 34.00 BMI Method:Stated General Appearance: WD/WN, no apparent distress HEENT: normal ENT inspection Neck: full range of motion Respiratory: lungs clear, normal breath sounds, no respiratory distress, no accessory muscle use Cardiovascular: regular rate, rhythm Gastrointestinal: normal bowel sounds, non tender, soft Extremities: non-tender, normal inspection Neurologic/Psychiatric: alert, normal mood/affect, oriented x 3 Appearance/Memory: appropriate appearance, no memory impairment Behavior/Eye Contact: cooperative, avoids eye contact; No threatening eye contact, No decreased rate of speech, No increased rate of speech, No belligerent, No compulsive, No uncooperative Thoughts/Hallucinations: no apparent hallucination; No auditory hallucinations, No delusions, No flight of ideas, No grandiose, No incoherent, No obsessive, No paranoid, No persecution, No phobic, No adventist, No tactile hallucinations, No visual hallucinations Skin: normal color, warm/dry Progress/Results/Core Measures Results/Orders Lab Results Laboratory Tests Test 03/11/20 12:29 Range/Units White Blood Count 13.2 H 4.3-11.0 10^3/uL Red Blood Count 4.78 4.30-5.52 10^6/uL Hemoglobin 14.7 13.3-17.7 g/dL Hematocrit 44 40-54 % Mean Corpuscular Volume 93 80-99 fL Mean Corpuscular Hemoglobin 31 25-34 pg Mean Corpuscular Hemoglobin Concent 33 32-36 g/dL Red Cell Distribution Width 12.2 10.0-14.5 % Platelet Count 296 130-400 10^3/uL Mean Platelet Volume 10.1 9.0-12.2 fL Immature Granulocyte % (Auto) 0 % Neutrophils (%) (Auto) 88 H 42-75 % Lymphocytes (%) (Auto) 9 L 12-44 % Monocytes (%) (Auto) 3 0-12 % Eosinophils (%) (Auto) 0 0-10 % Basophils (%) (Auto) 0 0-10 % Neutrophils # (Auto) 11.5 H 1.8-7.8 10^3/uL Lymphocytes # (Auto) 1.1 1.0-4.0 10^3/uL Monocytes # (Auto) 0.5 0.0-1.0 10^3/uL Eosinophils # (Auto) 0.0 0.0-0.3 10^3/uL Basophils # (Auto) 0.0 0.0-0.1 10^3/uL Immature Granulocyte # (Auto) 0.0 0.0-0.1 10^3/uL Neutrophils % (Manual) 88 % Lymphocytes % (Manual) 10 % Monocytes % (Manual) 2 % Toxic Granulation 1+ Sodium Level 140 135-145 MMOL/L Potassium Level 4.5 3.6-5.0 MMOL/L Chloride Level 104 98-107 MMOL/L Carbon Dioxide Level 26 21-32 MMOL/L Anion Gap 10 5-14 MMOL/L Blood Urea Nitrogen 14 7-18 MG/DL Creatinine 1.30 0.60-1.30 MG/DL Estimat Glomerular Filtration Rate 58 BUN/Creatinine Ratio 11 Glucose Level 116 H 70-105 MG/DL Calcium Level 9.6 8.5-10.1 MG/DL Troponin I < 0.028 <0.028 NG/ML My Orders Orders - ISRAEL MITCHELL MD Ed Iv/Invasive Line Start (03/11/20 11:44) Cbc With Automated Diff (03/11/20 11:44) Basic Metabolic Panel (03/11/20 11:44) Ekg Tracing (03/11/20 11:44) Chest 1 View, Ap/Pa Only (03/11/20 11:44) Manual Differential (03/11/20 12:29) Lorazepam Tablet (Ativan Tablet) (03/11/20 12:43) Troponin I (03/11/20 12:57) Vital Signs/I&O 03/11/20 11:20 Temp 35.8 Pulse 77 Resp 16 B/P (MAP) 135/88 (104) Blood Pressure Mean: 104 Progress Progress Note : Time: 13:45 Progress Note Patient's labs reviewed, within normal limits. Troponin is undetectable. Chest x-ray is reviewed and is also within normal limits. Patient's EKG shows a normal sinus rhythm without ectopy or ST segment elevation or depression. Patient states that he feels a little bit better after 1 mg of Ativan p.o. here in the department. We will send the patient home with approximately 10 tablets of 1 mg Ativan. The patient is counseled to only take 1 tablet every 8 hours as needed for his anxiety and for sleep. He verbalizes understanding. He will be sent home with a referral list of physicians. All questions are sought and answered and he is stable for discharge. Initial ECG Impression Date: Mar 11, 2020 Initial ECG Impression Time: 12:21 Initial ECG Rate: 65 Initial ECG Rhythm: Normal Sinus Initial ECG Intervals: Normal Initial ECG Impression: Normal Diagnostic Imaging Diagonstic Imaging: Xray Plain Films/CT/US/NM/MRI: chest Comments [facility] [place] NAME: RUBEN SRIVASTAVA Stephanie [facility] REC#: [id number] PT STATUS: REG ER : 1970 PHYSICIAN: ISRAEL MITCHELL MD ADMIT DATE: 03/11/20/ER Draft Date of Exam:03/11/20 CHEST 1 VIEW, AP/PA ONLY CLINICAL INDICATION: Patient with anxiety worse since yesterday. Patient had Ativan. EXAM: Portable chest x-ray upright view. COMPARISONS: Chest x-ray dated 10/18/2018. FINDINGS: Lungs/pleura: Lungs are clear. There is no pneumothorax. There is no pleural effusion. Mediastinum: Unremarkable. Pulmonary vasculature: Unremarkable. Heart: Unremarkable. Bones/extrathoracic soft tissue: Anterior cervical disc fusion hardware again seen overlying the lower cervical spine. IMPRESSION: There is no radiographic evidence of acute cardiopulmonary process. Dictated on workstation # [id number] Dict: 03/11/20 1215 Trans: 03/11/20 1225 [facility] [id number] Interpreted by: OBIE CORBETT MD Electronically signed by: Departure Impression Primary Impression: Anxiety Additional Impression: Chest pain Qualified Codes: R07.9 - Chest pain, unspecified Disposition: HOME, SELF-CARE Condition: Stable Departure-Patient Inst. Decision time for Depature: 13:47 Referrals: [facility] [place] (PCP) Primary Care Physician JORGE LUIS MCDANIEL (Family) Primary Care Physician Patient Instructions: Anxiety, Adult (DC) Add. Discharge Instructions: Drink plenty of fluids to stay well-hydrated. Take the lorazepam 1 mg every 8 hours as needed for anxiety and for sleep at [facility]. Please call and follow-up with your primary care provider this week. Return to the emergency room for any worsening symptoms, new concerns or other emergent complaints. Scripts Lorazepam (Ativan) 1 Mg Tablet 1 MG PO Q8H for Anxiety for 3 Days, #12 TAB Prov: ISRAEL MITCHELL MD 03/11/20 ISRAEL MITCHELL MD Mar 11, 2020 12:43
[2020-03-11 12:44] LABS: POTASSIUM 4.5 MMOL/L (3.6-5.0)
[2020-03-11 12:45] LABS: CALCIUM 9.6 MG/DL (8.5-10.1)
[2020-03-11 12:49] LABS: CREATININE SERUM 1.3 MG/DL (0.60-1.30)
[2020-03-11 12:56] LABS: LYMPHOCYTES % (MANUAL) 10 %; MONOCYTES % (MANUAL) 2 %; NEUTROPHILS % (MANUAL) 88 %; TOXIC GRANULATION/VACUOLAZATIO 1+
[2020-03-11] MEDS ORDERED: LORA-405 PO (13:49)
[2020-03-11 14:01] VITALS: BP 135/88
== END 2020-03-11 14:01 | disposition home or self-care (01) ==
LOC: EDUNIT# 11:08 → ER 11:11
DX: F41.9 Anxiety disorder, unspecified (principal); R07.9 Chest pain, unspecified; I10 Essential (primary) hypertension; F32.9 Major depressive disorder, single episode, unspecified; Z88.2 Allergy status to sulfonamides; Z88.1 Allergy status to other antibiotic agents; Z88.8 Allergy status to other drugs, medicaments and biological substances; Z85.528 Personal history of other malignant neoplasm of kidney
CPT/HCPCS: 36415; 71045; 80048; 84484; 85007; 85027; 93005

== ENCOUNTER 2020-03-14 12:50 | Emergency (ER) | payer MEDICARE ==
[~2020-03-14] VITALS: Ht 185 cm; Wt 119.0 kg
[~2020-03-14 12:50] MED LIST changes: +LORA-405 PO
[2020-03-14] MEDS ORDERED: hydrOXYzine (VISTARIL/ATARAX) 25 MG capsule/tablet PO ONE (14:15)
--- NOTE | 2020-03-14 14:22 | ED General ---
General Chief Complaint: General Problems/Pain Stated Complaint: ANXIETY Nursing Triage Note: Pt presents with variety of symptoms, similar to previous visit. Pt reports he was recently seen here for anxiety after running out of his lorazepam. Pt reports dry throat, feeling like chest was burning, minimal appetite, itching all over body. Nursing Sepsis Screen: No Definite Risk (SRAVAN OLEARY MED STUDENT) History of Present Illness Date Seen by Provider: Mar 14, 2020 Time Seen by Provider: 14:00 Initial Comments This is a 49 year old male presenting to the Emergency Department via ambulation for a chief complaint of anxiety. He states he was here on Friday or Friday for the same reason that he believes feels like an allergic reaction but doesn't know what from. He complains that his whole body titus, itches, and is on fire. He states his breath is shaky, his heart feels like it's "spasming", dry mouth, difficulty swallowing, itchy tongue, diarrhea (from IBS), lightheadedness and burning in his throat. He takes xyzal and benadryl and protonix. He had difficulty sleeping and took Benadryl. He had acid reflux from 10 years ago but complains of a burning sensation retrosternally. He believes that during his last visit, they took a CXR, EKG, and blood work which all came back normal. He was given ativan in the ER. He does not have a PCP. He was given a list of PCP's but hasn't found one yet. He states all other medications and information was taken during the previous visit. (SRAVAN OLEARY MED STUDENT) Allergies and Home Medications Allergies Coded Allergies: sulfamethoxazole (Verified Allergy, Unknown, 01/01/13) trimethoprim (Verified Allergy, Unknown, 01/01/13) eszopiclone (Verified Adverse Reaction, Unknown, MAKES EVERYTHING TASTE BAD, 10/18/18) Home Medications Amoxicillin/Potassium Clav 1 Each Tablet, 1 EACH PO BID Prescribed by: BARBARA SCHWAB on 12/23/18 1538 Cetirizine HCl 10 Mg Tablet, 10 MG PO DAILY Prescribed by: ILEANA DAY on 10/04/13 1451 Cetirizine Hcl 10 Mg Tablet, 10 MG PO DAILY, (Reported) Desvenlafaxine Succinate 50 Mg Tab.sr.24h, 50 MG PO DAILY Prescribed by: ILEANA DAY on 10/04/13 1451 Lorazepam 1 Mg Tablet, 1 MG PO Q8H Prescribed by: ISRAEL MITCHELL on 03/11/20 1349 Metoprolol Succinate 25 Mg Tab.er.24h, 25 MG PO DAILY Prescribed by: HONORIO CHAMBERS on 11/30/14 5493 Patient Home Medication List Home Medication List Reviewed: Yes (HONORIO CHAMBERS SURVEY PROJECT MANAGER) Review of Systems Review of Systems Constitutional: No fever EENTM: other (difficulty swallowing); No ear discharge, No hearing loss, No ear pain, No blurred vision, No double vision, No vision loss Respiratory: short of breath Cardiovascular: palpitations Gastrointestinal: diarrhea Genitourinary: no symptoms reported Musculoskeletal: no symptoms reported Skin: pruritus, other (whole body feels on fire/burning) Psychiatric/Neurological: Anxiety; Denies Numbness, Denies Paresthesia Hematologic/Lymphatic: No Symptoms Reported (SRAVAN OELARY) Past Spsssoo-Yboboi-Tojvny Hx Patient Social History 2nd Hand Smoke Exposure: No Recent Infectious Disease Expo: No Recent Hopitalizations: No (SRAVAN OLEARY) Immunizations Up To Date Tetanus Booster (TDap): Less than 5yrs (SRAVAN OLEARY) Seasonal Allergies Seasonal Allergies: Yes (SRAVAN OLEARY) Past Medical History Surgeries: Yes (CERVICAL FUSION, ENDOSCOPY, COLONOSCOPY, L KIDNEY REMOVAL) Respiratory: No Cardiac: Yes Hypertension Neurological: No Reproductive Disorders: No Genitourinary: Yes (kidney cancer) Gastrointestinal: Yes Colitis, Gastroesophageal Reflux, Irritable Bowel Musculoskeletal: Yes (HERNIATED DISK,3 FUSED VERTEBRAE,RADIATING NERVE PAIN,NUMBNESS AND TINGLING) Degenerate Disk Disease, Arthritis, Fractures Endocrine: No HEENT: No Tinnitis Cancer: Yes Kidney Psychosocial: Yes ADD/ADHD, Anxiety, Depression Integumentary: Yes Psoriasis Blood Disorders: No (SRAVAN OLEARY STUDENT) Family Medical History Cancer 03 FATHER, Onset:60 years & older Family history: Thyroid disorder 09 SISTER Stroke GRANDMOTHER No Pertinent Family Hx (SRAVAN OLEARY) Physical Exam Vital Signs Vital Signs - First Documented 03/14/20 12:57 Temp 36.6 Pulse 84 Resp 18 B/P (MAP) 129/84 (99) Pulse Ox 100 O2 Delivery Room Air (HONORIO CHAMBERS APRN) Vital Signs Capillary Refill : Less Than 3 Seconds (SRAVAN OLEARY Estrela Digital STUDENT) Height, Weight, BMI Height: 6'1.00" Weight: 250lbs. 8.0oz. [id number]; 34.00 BMI Method:Stated General Appearance: Moderate Distress Respiratory: Chest Non Tender, Lungs Clear, Normal Breath Sounds, No Accessory Muscle Use, No Respiratory Distress Cardiovascular: Regular Rate, Rhythm Neurologic/Psychiatric: Alert Skin: Normal Color, Warm/Dry (SRAVAN OLEARY Estrela Digital STUDENT) Progress/Results/Core Measures Suspected Sepsis Recent Fever Within 48 Hours: No Infection Criteria Present: None New/Unexplained Altered Menta: No Sepsis Screen: No Definite Risk SIRS Temperature: Pulse: 84 Respiratory Rate: 18 Blood Pressure 129 /84 Mean: 99 (SRAVAN OLEARY Estrela Digital STUDENT) Results/Orders Lab Results Laboratory Tests Test 03/14/20 14:26 03/14/20 14:35 Range/Units Urine Color YELLOW Urine Clarity CLEAR Urine pH 6.0 5-9 Urine Specific [place] 1.010 L 1.016-1.022 Urine Protein NEGATIVE NEGATIVE Urine Glucose (UA) NEGATIVE NEGATIVE Urine Ketones NEGATIVE NEGATIVE Urine Nitrite NEGATIVE NEGATIVE Urine Bilirubin NEGATIVE NEGATIVE Urine Urobilinogen 0.2 < = 1.0 MG/DL Urine Leukocyte Esterase NEGATIVE NEGATIVE Urine RBC (Auto) NEGATIVE NEGATIVE Urine RBC NONE /HPF Urine WBC 0-2 /HPF Urine Crystals NONE /LPF Urine Bacteria NEGATIVE /HPF Urine Casts NONE /LPF Urine Mucus NEGATIVE /LPF Urine Culture Indicated NO Urine Opiates Screen NEGATIVE NEGATIVE Urine Oxycodone Screen NEGATIVE NEGATIVE Urine Methadone Screen NEGATIVE NEGATIVE Urine Propoxyphene Screen NEGATIVE NEGATIVE Urine Barbiturates Screen NEGATIVE NEGATIVE Ur Tricyclic Antidepressants Screen POSITIVE H NEGATIVE Urine Phencyclidine Screen NEGATIVE NEGATIVE Urine Amphetamines Screen NEGATIVE NEGATIVE Urine Methamphetamines Screen NEGATIVE NEGATIVE Urine Benzodiazepines Screen POSITIVE H NEGATIVE Urine Cocaine Screen NEGATIVE NEGATIVE Urine Cannabinoids Screen NEGATIVE NEGATIVE White Blood Count 14.5 H 4.3-11.0 10^3/uL Red Blood Count 5.01 4.30-5.52 10^6/uL Hemoglobin 15.4 13.3-17.7 g/dL Hematocrit 47 40-54 % Mean Corpuscular Volume 93 80-99 fL Mean Corpuscular Hemoglobin 31 25-34 pg Mean Corpuscular Hemoglobin Concent 33 32-36 g/dL Red Cell Distribution Width 12.6 10.0-14.5 % Platelet Count 300 130-400 10^3/uL Mean Platelet Volume 10.3 9.0-12.2 fL Immature Granulocyte % (Auto) 0 % Neutrophils (%) (Auto) 86 H 42-75 % Lymphocytes (%) (Auto) 8 L 12-44 % Monocytes (%) (Auto) 6 0-12 % Eosinophils (%) (Auto) 1 0-10 % Basophils (%) (Auto) 0 0-10 % Neutrophils # (Auto) 12.4 H 1.8-7.8 X 10^3 Lymphocytes # (Auto) 1.1 1.0-4.0 X 10^3 Monocytes # (Auto) 0.8 0.0-1.0 X 10^3 Eosinophils # (Auto) 0.1 0.0-0.3 10^3/uL Basophils # (Auto) 0.0 0.0-0.1 10^3/uL Immature Granulocyte # (Auto) 0.0 0.0-0.1 10^3/uL Sodium Level 139 135-145 MMOL/L Potassium Level 4.0 3.6-5.0 MMOL/L Chloride Level 104 98-107 MMOL/L Carbon Dioxide Level 24 21-32 MMOL/L Anion Gap 11 5-14 MMOL/L Blood Urea Nitrogen 15 7-18 MG/DL Creatinine 1.34 H 0.60-1.30 MG/DL Estimat Glomerular Filtration Rate 56 BUN/Creatinine Ratio 11 Glucose Level 105 70-105 MG/DL Calcium Level 9.4 8.5-10.1 MG/DL Corrected Calcium 8.5-10.1 MG/DL Total Bilirubin 0.4 0.1-1.0 MG/DL Aspartate Amino Transf (AST/SGOT) 21 5-34 U/L Alanine Aminotransferase (ALT/SGPT) 31 0-55 U/L Alkaline Phosphatase 99 40-136 U/L Total Protein 8.2 6.4-8.2 GM/DL Albumin 4.6 H 3.2-4.5 GM/DL (HONORIO CHAMBERS APRN) My Orders Orders - HONORIO CHAMBERS APRN Ua Culture If Indicated (03/14/20 14:14) Drug Screen Stat (Urine) (03/14/20 14:14) Cbc With Automated Diff (03/14/20 14:14) Comprehensive Metabolic Panel (03/14/20 14:14) Hydroxyzine Cap/Tab (Vistaril) (03/14/20 14:15) Manual Differential (03/14/20 14:35) (HONORIO CHAMBERS APRN) Medications Given in ED Current Medications Medications Dose Ordered Sig/Joy Route Start Time Stop Time Status Last Admin Dose Admin Hydroxyzine Pamoate 25 mg ONCE ONCE PO 03/14/20 14:15 03/14/20 14:16 DC 03/14/20 14:26 25 MG (HONORIO CHAMBERS APRN) Vital Signs/I&O 03/14/20 12:57 Temp 36.6 Pulse 84 Resp 18 B/P (MAP) 129/84 (99) Pulse Ox 100 O2 Delivery Room Air (HONORIO CHAMBERS APRN) Vital Signs/I&O Capillary Refill : Less Than 3 Seconds (SRAVAN OLEARY MED STUDENT) Blood Pressure Mean: 99 Departure Communication (Admissions) I have seen the patient as well and agree with plan of care. We will discharge to home with prescription for Vistaril for the itching and for anxiety. Labs are grossly unremarkable, will have him follow-up with primary care. (HONORIO CHAMBERS APRN) Impression Primary Impression: General medical exam Disposition: HOME, SELF-CARE Condition: Stable Departure-Patient Inst. Decision time for Depature: 15:32 (HONORIO CHAMBERS APRN) Referrals: [facility]/ (PCP) Primary Care Physician JORGE LUIS MCDANIEL (Family) Primary Care Physician Patient Instructions: NO INSTRUCTIONS GIVEN Add. Discharge Instructions: 1. Medication as directed 2. Return to ER for any concerns. Follow-up with your doctor this week. All discharge instructions reviewed with patient and/or family. Voiced understanding. Scripts Hydroxyzine Pamoate (Vistaril) 50 Mg Capsule 50 MG PO TID PRN for ANXIETY, #20 CAP Prov: HONORIO CHAMBERS APRN 03/14/20 SRAVAN OLEARY MED STUDENT Mar 14, 2020 14:22 HONORIO CHAMBERS APRN Mar 14, 2020 15:33
[2020-03-14 15:02] LABS: BASOPHILS % (AUTO) 0 % (0-10); EOSINOPHILS # (AUTO) 0.1 10^3/uL (0.0-0.3); EOSINOPHILS % (AUTO) 1 % (0-10); HEMATOCRIT 47 % (40-54); HEMOGLOBIN 15.4 g/dL (13.3-17.7); LYMPHOCYTES # (AUTO) 1.1 X 10^3 (1.0-4.0); LYMPHOCYTES % (AUTO) 8 % (12-44); MEAN CORPUSCULAR HEMOGLOBIN 31 pg (25-34); MEAN CORPUSCULAR HGB CONC 33 g/dL (32-36); MEAN CORPUSCULAR VOLUME 93 fL (80-99); MEAN PLATELET VOLUME 10.3 fL (9.0-12.2); MONOCYTES # (AUTO) 0.8 X 10^3 (0.0-1.0); MONOCYTES % (AUTO) 6 % (0-12); NEUTROPHILS # (AUTO) 12.4 X 10^3 (1.8-7.8); NEUTROPHILS % (AUTO) 86 % (42-75); PLATELET COUNT 300 10^3/uL (130-400); WHITE BLOOD COUNT 14.5 10^3/uL (4.3-11.0)
[2020-03-14 15:04] LABS: BILIRUBIN,URINE NEGATIVE (NEGATIVE); CLARITY,URINE CLEAR; COLOR,URINE YELLOW; GLUCOSE, URINE (UA) NEGATIVE (NEGATIVE); KETONES,URINE NEGATIVE (NEGATIVE); LEUKOCYTE ESTERASE ,URINE NEGATIVE (NEGATIVE); NITRITE,URINE NEGATIVE (NEGATIVE); PROTEIN,URINE NEGATIVE (NEGATIVE)
[2020-03-14 15:12] LABS: ALBUMIN 4.6 GM/DL (3.2-4.5); CHLORIDE 104 MMOL/L (98-107); SODIUM 139 MMOL/L (135-145)
[2020-03-14 15:13] LABS: CALCIUM 9.4 MG/DL (8.5-10.1)
[2020-03-14 15:14] LABS: GLUCOSE 105 MG/DL (70-105); TOTAL PROTEIN 8.2 GM/DL (6.4-8.2)
[2020-03-14 15:15] LABS: CARBON DIOXIDE 24 MMOL/L (21-32)
[2020-03-14 15:16] LABS: BILIRUBIN,TOTAL 0.4 MG/DL (0.1-1.0)
[2020-03-14 15:18] LABS: BACTERIA,URINE NEGATIVE /HPF; WBC,URINE 0-2 /HPF
[2020-03-14 15:18] LABS: ALKALINE PHOSPHATASE 99 U/L (40-136); CREATININE SERUM 1.34 MG/DL (0.60-1.30); GFR ESTIMATED 56
[2020-03-14 15:19] LABS: BUN/CREATININE RATIO 11
[2020-03-14 15:21] LABS: ALANINE AMINOTRANSFERASE 31 U/L (0-55)
[2020-03-14 15:22] LABS: AMPHETAMINE SCREEN, URINE NEGATIVE (NEGATIVE); BARBITURATE SCREEN URINE NEGATIVE (NEGATIVE); BENZODIAZEPINES SCREEN URINE POSITIVE (NEGATIVE); CANNABINOID SCREEN, URINE NEGATIVE (NEGATIVE); COCAINE SCREEN URINE NEGATIVE (NEGATIVE); METHADONE STAT NEGATIVE (NEGATIVE); METHAMPHETAMINE SCREEN URINE S NEGATIVE (NEGATIVE); OPIATE SCREEN URINE NEGATIVE (NEGATIVE); OXYCODONE STAT NEGATIVE (NEGATIVE); PROPOXYPHENE STAT NEGATIVE (NEGATIVE); TRICYCLIC ANTIDEPRESSANTS SCRE POSITIVE (NEGATIVE)
[2020-03-14] MEDS ORDERED: HYDR50CA PO (15:33)
[2020-03-14 15:45] LABS: BASOPHILS % (MANUAL) 1 %; EOSINOPHILS % (MANUAL) 1 %; LYMPHOCYTES % (MANUAL) 12 %; MONOCYTES % (MANUAL) 9 %; NEUTROPHILS % (MANUAL) 77 %
[2020-03-14 15:46] LABS: RBC MORPH NORMAL
[2020-03-14 16:00] VITALS: BP 129/84
[2020-03-14] MEDS ORDERED: KETOROLAC 60 MG/2 ML VIAL IM ONE (16:00)
[2020-03-14] MEDS ORDERED: ANTACID SUSP 30 ML UDC (MYLANTA) PO ONE (16:00)
[2020-03-14] MEDS ORDERED: LIDOCAINE 2% VISCOUS 15 ML UDC PO ONE (16:00)
[2020-03-14] MEDS ORDERED: dexAMETHasone 6 MG TAB (DECADRON) PO SCH (16:00)
== END 2020-03-14 16:00 | disposition home or self-care (01) ==
LOC: EDUNIT# 12:50 → ER 12:51
DX: Z00.00 Encounter for general adult medical examination without abnormal findings (principal); F41.9 Anxiety disorder, unspecified; I10 Essential (primary) hypertension; F32.9 Major depressive disorder, single episode, unspecified; Z88.2 Allergy status to sulfonamides; Z88.1 Allergy status to other antibiotic agents; Z88.8 Allergy status to other drugs, medicaments and biological substances; Z85.528 Personal history of other malignant neoplasm of kidney
CPT/HCPCS: 36415; 80053; 80306; 81000; 85007; 85027

== ENCOUNTER 2020-03-14 18:39 | Emergency (ER) | payer MEDICARE ==
[~2020-03-14] VITALS: Ht 73 cm; Wt 168.0 kg
[~2020-03-14 18:39] MED LIST changes: +HYDR50CA PO
[2020-03-14 18:44] VITALS: BP 127/88
[2020-03-14] MEDS ORDERED: LORazepam 0.5 MG (ATIVAN) TABLET PO STA (19:30)
--- NOTE | 2020-03-14 19:36 | ED General ---
General Chief Complaint: General Problems/Pain Stated Complaint: GENERAL PAIN, CHILLS Nursing Triage Note: was just here and went home and was not home 10 minutes and he feels a burn throughout his entire body like a severe sunburn. There is itching too. Pt "felt like he wasn't attached to his body". Nursing Sepsis Screen: No Definite Risk Source of Information: Patient Exam Limitations: No Limitations History of Present Illness Date Seen by Provider: Mar 14, 2020 Time Seen by Provider: 19:17 Initial Comments Patient presents ER by private conveyance with chief complaint that he has for the past few days since been cut off from his lorazepam started feeling waves of burning heat through his body. He is tried Benadryl, Pepcid etc. He is getting here earlier today and had a extensive work-up which did not find anything dangerous. He attributes his symptoms to possibly be from his lorazepam withdrawal. He was also cut off from his Percocets. He has not establish care with a new primary care provider but they did apparently set him up with some more lorazepam so he would not cut off cold turkey. He says he did not realize until today that [facility]. He said he did not know where to go so he came here. He is having no fevers chills cough shortness of air or new diarrhea Allergies and Home Medications Allergies Coded Allergies: sulfamethoxazole (Verified Allergy, Unknown, 01/01/13) trimethoprim (Verified Allergy, Unknown, 01/01/13) eszopiclone (Verified Adverse Reaction, Unknown, MAKES EVERYTHING TASTE BAD, 10/18/18) Home Medications Amoxicillin/Potassium Clav 1 Each Tablet, 1 EACH PO BID Prescribed by: BARBARA SCHWAB on 12/23/18 1538 Cetirizine HCl 10 Mg Tablet, 10 MG PO DAILY Prescribed by: ILEANA DAY on 10/04/13 1451 Cetirizine Hcl 10 Mg Tablet, 10 MG PO DAILY, (Reported) Desvenlafaxine Succinate 50 Mg Tab.sr.24h, 50 MG PO DAILY Prescribed by: ILEANA DAY on 10/04/13 1451 Hydroxyzine Pamoate 50 Mg Capsule, 50 MG PO TID PRN for ANXIETY Prescribed by: HONORIO CHAMBERS on 03/14/20 1533 Lorazepam 1 Mg Tablet, 1 MG PO Q8H Prescribed by: ISRAEL MITCHELL on 03/11/20 1349 Metoprolol Succinate 25 Mg Tab.er.24h, 25 MG PO DAILY Prescribed by: HONORIO CHAMBERS on 11/30/14 9145 Patient Home Medication List Home Medication List Reviewed: Yes Review of Systems Review of Systems Constitutional: see HPI ([employer] positive review systems except as noted below); No chills, No fever EENTM: No ear discharge, No ear pain Respiratory: No cough Cardiovascular: No chest pain; palpitations Gastrointestinal: No abdominal pain, No constipation; diarrhea (Chronic IBS); No nausea, No vomiting Musculoskeletal: back pain, joint pain All Other Systems Reviewed Negative Unless Noted: Yes Past Tdhbuht-Kvobfk-Qkvlfo Hx Patient Social History Alcohol Use: Denies Use Smoking Status: Never a Smoker 2nd Hand Smoke Exposure: No Recent Infectious Disease Expo: No Recent Hopitalizations: No Immunizations Up To Date Tetanus Booster (TDap): Less than 5yrs Seasonal Allergies Seasonal Allergies: Yes Past Medical History Surgeries: Yes (CERVICAL FUSION, ENDOSCOPY, COLONOSCOPY, L KIDNEY REMOVAL) Respiratory: No Cardiac: Yes Hypertension Neurological: No Reproductive Disorders: No Genitourinary: Yes (kidney cancer) Gastrointestinal: Yes Colitis, Gastroesophageal Reflux, Irritable Bowel Musculoskeletal: Yes (HERNIATED DISK,3 FUSED VERTEBRAE,RADIATING NERVE PAIN,NUMBNESS AND TINGLING) Degenerate Disk Disease, Arthritis, Fractures Endocrine: No HEENT: No Tinnitis Cancer: Yes Kidney Psychosocial: Yes ADD/ADHD, Anxiety, Depression Integumentary: Yes Psoriasis Blood Disorders: No Family Medical History Cancer 03 FATHER, Onset:60 years & older Family history: Thyroid disorder 09 SISTER Stroke GRANDMOTHER No Pertinent Family Hx Physical Exam Vital Signs Vital Signs - First Documented 03/14/20 18:44 Temp 37.0 Pulse 89 Resp 20 B/P (MAP) 127/88 (101) Pulse Ox 95 O2 Delivery Room Air Capillary Refill : Less Than 3 Seconds Height, Weight, BMI Height: 6'1.00" Weight: 250lbs. 8.0oz. [id number]; 315.00 BMI Method:Stated General Appearance: WD/WN, Anxious Eyes: Bilateral Eye Normal Inspection, Bilateral Eye PERRL, Bilateral Eye EOMI HEENT: PERRL/EOMI, Pharynx Normal, Moist Mucous Membranes Neck: Full Range of Motion, Normal Inspection Respiratory: Lungs Clear, Normal Breath Sounds, No Accessory Muscle Use, No Respiratory Distress Cardiovascular: Regular Rate, Rhythm, No Edema, Normal Peripheral Pulses Extremity: Normal Capillary Refill, Normal Inspection Neurologic/Psychiatric: Alert, Oriented x3, No Motor/Sensory Deficits Skin: Normal Color, Warm/Dry Progress/Results/Core Measures Suspected Sepsis Recent Fever Within 48 Hours: No Infection Criteria Present: None New/Unexplained Altered Menta: No Sepsis Screen: No Definite Risk SIRS Temperature: Pulse: 89 Respiratory Rate: 20 Blood Pressure 127 /88 Mean: 101 Results/Orders My Orders Orders - TKAMELIA DE LA FUENTE Lorazepam Tablet (Ativan Tablet) (03/14/20 19:30) Vital Signs/I&O 03/14/20 18:44 Temp 37.0 Pulse 89 Resp 20 B/P (MAP) 127/88 (101) Pulse Ox 95 O2 Delivery Room Air Capillary Refill : Less Than 3 Seconds Blood Pressure Mean: 101 Progress Note : Time: 19:33 Progress Note Is a little bit difficult to redirect and get a good history out of him but it comes down to it sounds like he is out of his lorazepam and his Percocet all at once and he may be withdrawing. They apparently did refill his lorazepam but r ather than going up off care and filling it he decided to come here. Really give him a single dose of Ativan until him to immediately go to foster care and fill it. He has a list of the local physicians and will provide him with another 1. We have encouraged him to follow-up with a primary care doctor and explained to him that all the complaints he has brought to us are chronic complaints and none of them are emergent. We did discuss return precautions if he was having an emergency to return to the ER. Patient is okay with this plan Departure Impression Primary Impression: Benzodiazepine withdrawal without complication Disposition: HOME, SELF-CARE Condition: Stable Departure-Patient Inst. Decision time for Depature: 19:34 Referrals: [facility]/ (PCP) Primary Care Physician JORGE LUIS MCDANIEL (Family) Primary Care Physician Patient Instructions: LOCAL PHYSICIAN LIST, Prescription Drug Withdrawal (DC) Add. Discharge Instructions: I highly encourage you to follow-up with [facility] your prescription. You should either look for a new physician with [facility] or another 1 in the community. Enclosed is a list of local primary care physicians. Look for an internal medicine doctor or family medicine doctor. Typically when your doctor gets you off the medication they will continue to cover you for about 30 days with your prescriptions as necessary so you have some time to follow-up with a new provider. Do not waste time and start interviewing new providers tomorrow. All discharge instructions reviewed with patient and/or family. Voiced understanding. Copy Copies To 1: CLARISSE AQUINO TITUS J Mar 14, 2020 19:35
== END 2020-03-14 19:47 | disposition home or self-care (01) ==
LOC: EDUNIT# 18:39 → ER 18:42
DX: F13.239 Sedative, hypnotic or anxiolytic dependence with withdrawal, unspecified (principal); F41.9 Anxiety disorder, unspecified; I10 Essential (primary) hypertension; F32.9 Major depressive disorder, single episode, unspecified; Z88.2 Allergy status to sulfonamides; Z88.1 Allergy status to other antibiotic agents; Z88.8 Allergy status to other drugs, medicaments and biological substances; Z85.528 Personal history of other malignant neoplasm of kidney
CPT/HCPCS: 99283

== ENCOUNTER → 2020-10-12 | Outpatient (CLI) | payer MEDICARE | LOC: LABNPT 06:32 | PROVIDERS: ATTEND Internal Medicine | DX: Z20.822 Contact with and (suspected) exposure to COVID-19 (principal) | CPT/HCPCS: 87636 ==

== ENCOUNTER 2021-06-14 22:14 | Emergency (ER) | payer MEDICARE ==
[~2021-06-14] VITALS: Ht 185 cm; Wt 168.0 kg
[2021-06-14] MEDS ORDERED: DOXE10CA29 (22:26)
[2021-06-14] MEDS ORDERED: MECL-149 (22:26)
[2021-06-14] MEDS ORDERED: PANT40TA52 (22:26)
[2021-06-14] MEDS ORDERED: DOXE50CA3 (22:26)
[2021-06-14] MEDS ORDERED: NFCHLORHGL (22:26)
[2021-06-14] MEDS ORDERED: AMOX500C2 (22:26)
[2021-06-14] MEDS ORDERED: METH4TAB10 PO (22:45)
[2021-06-14] MEDS ORDERED: ACYCLOVIR 400 MG TABLET (ZOVIRAX) PO ONE (22:45)
[2021-06-14] MEDS ORDERED: methylPREDNISolone 125 MG (Solu-MEDROL) VIAL IM ONE (22:45)
[2021-06-14] MEDS ORDERED: ACYC-112 PO (22:45)
--- NOTE | 2021-06-14 22:45 | ED Neurological Problem ---
General Chief Complaint: Facial Problems Stated Complaint: L SIDED WEAKNESS Nursing Triage Note: left facial numbness/weakness x2 days, worse tonight. tinnitis x2 weeks. Source: patient Exam Limitations: no limitations History of Present Illness Date Seen by Provider: Jun 14, 2021 Time Seen by Provider: 22:23 Initial Comments The patient presents to the ER by private conveyance from home with chief complaint of the last 2 days has noticed a little bit of downward turn of the smile on the left side as well as some decreased sensation on the left side of his face left cheek and left forehead. His family also noticed this. Is not having any other neurologic symptoms. No history of stroke or heart attack. He has well-controlled hypertension but no diabetes. He does have a statin that he takes and follows with the primary care provider. He does not smoke drink or use recreational drugs. He has been having left ear fullness, pressure and increased tinnitus for the past 2 weeks. No fevers chills nausea vomiting or ear drainage Allergies and Home Medications Allergies Coded Allergies: sulfamethoxazole (Verified Allergy, Unknown, 01/01/13) trimethoprim (Verified Allergy, Unknown, 01/01/13) eszopiclone (Verified Adverse Reaction, Unknown, MAKES EVERYTHING TASTE BAD, 10/18/18) Patient Home Medication List Home Medication List Reviewed: Yes Amoxicillin (Amoxicillin) 500 Mg Capsule, (Reported) Entered as Reported by: YARED GUIDRY on 06/14/212225 Last Action: New Order Amoxicillin/Potassium Clav (Augmentin 875-125 Tablet) 1 Each Tablet, 1 EACH PO BID Prescribed by: BARBARA SCHWAB on 12/23/18 1538 Cetirizine HCl (Zyrtec) 10 Mg Tablet, 10 MG PO DAILY Prescribed by: ILEANA DAY on 10/04/13 145 Cetirizine Hcl (Cetirizine Hcl) 10 Mg Tablet, 10 MG PO DAILY, (Reported) Entered as Reported by: GUY CHIU on 10/04/13 1321 Chlorhexidine Gluconate (Chlorhexidine Gluconate) 0.12 % Mouthwash, (Reported) Entered as Reported by: YARED GUIDRY on 06/14/212225 Last Action: New Order Desvenlafaxine Succinate (Pristiq) 50 Mg Tab.sr.24h, 50 MG PO DAILY Prescribed by: ILEANA DAY on 10/04/13 1451 Doxepin HCl (Doxepin HCl) 50 Mg Capsule, (Reported) Entered as Reported by: YARED GUIDRY on 06/14/212225 Last Action: New Order Doxepin HCl (Doxepin HCl) 10 Mg Capsule, (Reported) Entered as Reported by: YARED GUIDRY on 06/14/212225 Last Action: New Order Hydroxyzine Pamoate (Vistaril) 50 Mg Capsule, 50 MG PO TID PRN for ANXIETY Prescribed by: HONORIO CHAMBERS on 03/14/20 1533 Lorazepam (Ativan) 1 Mg Tablet, 1 MG PO Q8H Prescribed by: ISRAEL MITCHELL on 03/11/20 1349 Meclizine HCl (Meclizine HCl) 25 Mg Tablet, (Reported) Entered as Reported by: YARED GUIDRY on 06/14/212225 Last Action: New Order Metoprolol Succinate (Toprol Xl) 25 Mg Tab.er.24h, 25 MG PO DAILY Prescribed by: HONORIO CHAMBERS on 11/30/14 2145 Pantoprazole Sodium (Pantoprazole Sodium) 40 Mg Tablet.dr, (Reported) Entered as Reported by: YARED GUIDRY on 06/14/212225 Last Action: New Order Review of Systems Review of Systems Constitutional: No chills, No diaphoresis Eyes: Denies Blindness, Denies Blurred Vision Ears, Nose, Mouth, Throat: denies ear pain, denies ear discharge Respiratory: No cough, No short of breath Cardiovascular: No chest pain, No edema Gastrointestinal: No abdominal pain, No melena, No nausea, No vomiting Genitourinary: No discharge, No dysuria Musculoskeletal: No back pain, No joint pain All Other Systems Reviewed Negative Unless Noted: Yes Past Klairgo-Rmscuz-Ydsstv Hx Patient Social History Tobacco Use?: No Substance use?: No Alcohol Use?: No Pt feels they are or have been: No Immunizations Up To Date Tetanus Booster (TDap): Less than 5yrs Seasonal Allergies Seasonal Allergies: Yes Past Medical History Surgery/Hospitalization HX: cervical fusion, colonoscopy, left partial nephrectomy, htn, renal ca, colitis, gerd, ibs, djd, adhd, anx/dep, psoriasis. Surgeries: Yes (CERVICAL FUSION, ENDOSCOPY, COLONOSCOPY, L KIDNEY REMOVAL) Respiratory: No Cardiac: Yes Hypertension Neurological: No Reproductive Disorders: No Genitourinary: Yes (kidney cancer) Gastrointestinal: Yes Colitis, Gastroesophageal Reflux, Irritable Bowel Musculoskeletal: Yes (HERNIATED DISK,3 FUSED VERTEBRAE,RADIATING NERVE PAIN,NUMBNESS AND TINGLING) Degenerate Disk Disease, Arthritis, Fractures Endocrine: No HEENT: No Tinnitis Cancer: Yes Kidney Psychosocial: Yes ADD/ADHD, Anxiety, Depression Integumentary: Yes Psoriasis Blood Disorders: No Family Medical History Cancer 03 FATHER, Onset:60 years & older Family history: Thyroid disorder 09 SISTER Stroke GRANDMOTHER No Pertinent Family Hx Physical Exam Vital Signs Vital Signs - First Documented 06/14/21 22:27 Temp 37.8 Pulse 76 Resp 18 B/P (MAP) 120/92 (101) Pulse Ox 97 O2 Delivery Room Air Capillary Refill : Less Than 3 Seconds Height, Weight, BMI Height: 6'1.00" Weight: 250lbs. 8.0oz. 113.286950jp; 49.00 BMI Method:Stated General Appearance: WD/WN, no apparent distress HEENT: PERRL/EOMI, normal ENT inspection, pharynx normal, TM abnormal (L) (Slightly bulging, clear mucoid effusion) Neck: non-tender, full range of motion, supple Respiratory: no respiratory distress, no accessory muscle use Cardiovascular: normal peripheral pulses, regular rate, rhythm Peripheral Pulses: 2+ Radial Pulses (R), 2+ Radial Pulses (L) Neurologic/Psychiatric: alert, normal mood/affect, oriented x 3, other (Decreased sensation in the upper left face and some decreased furrowing of the brow on the left side. Very subtle downward turn of the left corner of the mouth and when he blows his cheeks out he cannot completely close the left side of his lips.) Crainal Nerves: normal hearing, normal speech, PERRL Motor/Sensory: sensory deficit (Decree sensation on the left side of his face compared to right), other (Very subtle left facial droop) Skin: normal color, warm/dry Progress/Results/Core Measures Results/Orders My Orders Orders - AMELIA FREY Acyclovir Capsule/Tablet (Zovirax Caps (06/14/21 22:45) Methylprednisolone Sod Succ (Solu-Medrol (06/14/21 22:45) Vital Signs/I&O 06/14/21 22:27 Temp 37.8 Pulse 76 Resp 18 B/P (MAP) 120/92 (101) Pulse Ox 97 O2 Delivery Room Air Blood Pressure Mean: 101 Progress Progress Note : Time: 22:42 Progress Note The patient has an isolated peripheral cranial nerve #7 palsy. We will put him on steroids and acyclovir. Return precautions were discussed. As far as his labyrinthitis it does not seem very bad at this time and does not need a ntibiotics. The steroids should help drain his ear. Departure Impression Primary Impression: Gilmore's palsy Disposition: 01 HOME, SELF-CARE Condition: Stable Departure-Patient Inst. Decision time for Depature: 22:43 Referrals: [facility]/RAYA (PCP) Primary Care Physician JORGE LUIS MCDANIEL (Family) Primary Care Physician Patient Instructions: Gilmore's Palsy (DC) Add. Discharge Instructions: Drink plenty of fluids. The steroid should help relieve some of the pressure in your left ear it is causing the tenderness as well as resolve your falls in the little sooner. If you have any new neurologic symptoms outside of your face such as difficulty with swallowing, arms or legs being weak or numb then I would encourage you to return to the nearest ER promptly. Take the acyclovir 5 times a day for the next 10 days to treat the virus that I presume is causing both your labyrinthitis and your Gilmore's palsy. If your symptoms are persistent for more than 3 to 4 weeks then follow-up with your primary care doctor for management. Use eyedrops throughout the day to keep your left eye moist. At night and use a lubricating eyedrop and tape your left eye shut so it does not dry out. If you are having increasing pain or decreasing vision in your left eye then you need to see your head charger promptly to look for the formation of ulcers on the cornea that can occur from your eyelid not being able to properly close and lubricate the eye. After hours you may come to the ER instead of the head charger. All discharge instructions reviewed with patient and/or family. Voiced understanding. Scripts Acyclovir (Acyclovir) 800 Mg Tablet 800 MG PO 5XD for 10 Days, #50 TAB 0 Refills Prov: AMELIA FREY 06/14/21 Methylprednisolone (Methylprednisolone Dose Pack) 4 Mg Tab.ds.pk 4 MG PO UD for 6 Days, #21 PKG 0 Refills PER DOSE PACK INSTRUCTIONS Prov: AMELIA FREY 06/14/21 AMELIA FREY Jun 14, 2021 22:44
[2021-06-14 22:50] VITALS: BP 131/89
== END 2021-06-14 22:53 | disposition home or self-care (01) ==
LOC: EDUNIT# 22:14 → ER 22:17
DX: G51.0 Bell's palsy (principal)
CPT/HCPCS: 99284

== ENCOUNTER 2022-05-01 05:38 | Outpatient (CLI) | payer MEDICARE ==
[~2022-05-01] VITALS: Ht 185.4 cm; Wt 117.9 kg
[~2022-05-01 05:38] MED LIST changes: +ACYC-112 PO; +AMOX500C2; +DOXE10CA29; +DOXE50CA3; +MECL-149; +METH4TAB10 PO; +NFCHLORHGL; +PANT40TA52
[2022-05-06] MEDS ORDERED: MIRT-68 PO (13:32)
[2022-05-06] MEDS ORDERED: CELE50CA PO (13:32)
[2022-05-06] MEDS ORDERED: CYCL5TAB PO (13:32)
[2022-05-06] MEDS ORDERED: OXYC1TAB11 PO (13:32)
[2022-05-06] MEDS ORDERED: IXEK80AU SQ (13:32)
[2022-05-06] MEDS ORDERED: LEVO5TAB28 PO (13:32)
[2022-05-06] MEDS ORDERED: ATOR10TA66 PO (13:32)
[2022-05-06] MEDS ORDERED: BUSP5TAB59 PO (13:32)
[2022-05-06] MEDS ORDERED: GABA800T10 PO (13:32)
== END 2022-05-06 13:39 ==
LOC: PREOP 05:38
PROVIDERS: ATTEND Internal Medicine
DX: Z01.818 Encounter for other preprocedural examination (principal); Z12.11 Encounter for screening for malignant neoplasm of colon

== ENCOUNTER 2022-05-24 06:57 | Day surgery (SDC) | payer MEDICARE ==
--- NOTE | 2022-04-30 09:41 | HISTORY AND PHYSICAL ---
COLONOSCOPY HISTORY AND PHYSICAL HISTORY OF PRESENT ILLNESS: The patient is a 51-year-old white male being set up for his first screening colonoscopy. He assures us he is not aware of any family history for colon cancer or colon polyps. He denies bright red blood per rectum or melena. Denies any bowel habit change. PAST MEDICAL HISTORY: Significant for rather severe plaque psoriasis. He has been on Taltz subcu and has had significant clearing of his plaque psoriasis. He does report since initiation, his sinuses have been sore. He denies any purulent drainage. He does have a little bit of congestion associated with this. He has had no epistaxis. He is not aware of any family history for colon cancer or colon polyps. PHYSICAL EXAMINATION: GENERAL: Reveals a pleasant white male, appeared to be in no acute distress. VITAL SIGNS: Weight 259 pounds, blood pressure 112/80. CHEST: Clear. CARDIOVASCULAR: Reveals Regular rate and rhythm without murmur S3 or S4. ABDOMEN: Soft, supple without mass, organomegaly, or tenderness. SKIN: Evaluation reveals no evidence for plaque psoriasis. He has several areas of postinflammatory hyperpigmentation, lower extremities and elbows, very minor scalp involvement. ASSESSMENT AND PLAN: 1. The patient is being set up for his first screening colonoscopy deemed to be of average risk. Prep instructions were given and questions were answered. 2. Psoriasis, under excellent control on Taltz. 3. Possible mild sinus symptoms, aggravated by Taltz, bacterial infection much less likely. Advised saline nasal spray and a humidifier in his bedroom at night. We will have him follow up with [facility] in 3 months. Job ID: [id number] DocumentID: [id number] Dictated Date: 04/22/2022 16:23:55 Monitoring And Evaluation Advisor Date: 04/22/2022 16:37:00 Dictated By: RUBEN BARBOSA MD [facility]
[~2022-05-24] VITALS: Ht 185.4 cm; Wt 117.9 kg
[~2022-05-24 06:57] MED LIST changes: +ATOR10TA66 PO; +BUSP5TAB59 PO; +CELE50CA PO; +CYCL5TAB PO; +GABA800T10 PO; +IXEK80AU SQ; +LEVO5TAB28 PO; +MIRT-68 PO; +OXYC1TAB11 PO
[2022-05-24] MEDS ORDERED: LACTATED RINGERS 1,000 ML IV STA (07:11)
[2022-05-24] MEDS ORDERED: PROPOFOL INJECTION 50 ML IV ONE (07:18)
[2022-05-24] MEDS ORDERED: MIDAZOLAM 2 MG/2 ML (VERSED) VIAL ONE (07:18)
[2022-05-24 07:25] VITALS: BP 136/93
--- NOTE | 2022-05-24 07:52 | Pre-Op Note & Conscious Sedat ---
Pre-Operative Progress Note Date H&P Reviewed: May 24, 2022 Time H&P Reviewed: 07:51 History & Physical: H&P Reviewed, Patient Examed, No changes noted Pre-Op Diagnosis: screening Moderate Sedation PreProcedure ASA Score 2 Airway Lungs Heart ASA score ASA 1: a normal healthy patient ASA 2: a patient with a mild systemic disease (mid diabetes, controlled hypertension, obesity ASA 3: a patient with a severe systemic disease that limits activity (angina, COPD, prior Myocardial infarction) ASA 4: a patient with an incapacitating disease that is a constant threat to life (CHF, renal failure) ASA 5: a moribund patient not expected to survive 24 hrs. (ruptured aneurysm) ASA 6: a declared brain- patient whose organs are being harvested. For emergent operations, add the letter E after the classification Mallampati Classification Grade 2 Sedation Plan Analgesia, Amnesia, Plan communicated to team members, Discussed options with patient/fam, Discussed risks with patient/fam The patient is an appropriate candidate to undergo the planned procedure, sedation, and anesthesia. The patient immediately re-assessed prior to indication. RUBEN BARBOSA MD May 24, 2022 07:52
[2022-05-24] MEDS ORDERED: proPOfol 200 MG/20 ML (DIPRIVAN) VIAL IV ONE (08:21)
[2022-05-24 08:25] VITALS: BP 136/84
--- NOTE | 2022-05-24 08:26 | Progress Note-Post Operative ---
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 Anal sphincter tone was normal and the perianal reflexes intact. Prostate is unremarkable additional inspection no abnormalities noted on digital inspection anal canal or distal rectal vault. The colonoscope was then inserted into the rectum and under direct visualization advanced to the cecum. The cecum was identified by identification of the ileocecal valve and the cecal strap. Photographic documentation was obtained. Careful inspection was made as the colonoscope was withdrawn. Quality the prep was good. There were no evidence for internal or external hemorrhoids. The rectum sigmoid colon descending colon splenic flexure transverse colon and ascending colon hepatic flexure and cecum were unremarkable with no evidence for neoplasia or diverticular disease. Assessment: Normal colonoscopy to the cecum. Would advocate consideration for repeat screening colonoscopy in 10 years. RUBEN BARBOSA MD May 24, 2022 08:26
[2022-05-24 08:30] VITALS: BP 147/89
[2022-05-24 08:45] VITALS: BP 120/89
--- NOTE | 2022-05-24 10:19 | Anesthesia-General Post-Op ---
MAC Patient Condition Mental Status/LOC: Same as Preop Cardiovascular: Satisfactory Nausea/Vomiting: Absent Respiratory: Satisfactory Pain: Controlled Complications: Absent Post Op Complications Complications None Follow Up Care/Instructions Patient Instructions None needed. Anesthesiology Discharge Order Discharge Order Patient is doing well, no complaints, stable vital signs, no apparent adverse anesthesia problems. No complications reported per nursing. ADARSH CASTELLANOS CRNA May 24, 2022 10:19
== END 2022-05-24 09:02 | disposition home or self-care (01) ==
LOC: ENDO 06:57
PROVIDERS: ATTEND Internal Medicine
DX: Z12.11 Encounter for screening for malignant neoplasm of colon (principal); L40.0 Psoriasis vulgaris; Z79.899 Other long term (current) drug therapy; E66.9 Obesity, unspecified; Z68.34 Body mass index [BMI] 34.0-34.9, adult

== ENCOUNTER 2022-10-26 14:34 | Emergency (ER) | payer MEDICARE ==
[~2022-10-26] VITALS: Ht 186 cm; Wt 116.6 kg
[2022-10-26 14:46] VITALS: BP 129/92
--- NOTE | 2022-10-26 15:13 | ED Fall/Injury ---
General Chief Complaint: Trauma-Non Activation Stated Complaint: FELL OFF PORCH/ MULTIPLE INJURIES Nursing Triage Note: pt ambulatory to room. pt states he was pulled off of his 2 foot tall porch by his dogs. states he fell to his left side. reports multiple injuries. states he hurts left face, shoulder, and side pain. reports bilateral wrist pain specifically. also states he "hurts all over." pt reports he hit head on dirt ground that had old pavement underneath. reports he "blacked out" for a couple seconds. pt denies blood thinner use. pt is A&Ox4, speech normal Source: patient Exam Limitations: no limitations History of Present Illness Date Seen by Provider: Oct 26, 2022 Time Seen by Provider: 15:08 Initial Comments Patient is a 52-year-old male who fell off the porch around 2 PM. States his dogs took off running after another dog pulled him off the porch which was around 2 feet landing on his left side. He states his head took most of the hit but did not land on his left side. Patient hit a hard dirt surface. Possible loss conscious for 2 seconds. Not on blood thinners. Was able to ambulate after a few minutes. Reports left-sided head pain, left-sided jaw pain and left-sided neck pain. Also landed on his left shoulder and left wrist. Patient reports normal range of motion of his upper and lower extremities. Also reports pain to the left side of his ribs with some mild pain with deep inspiration. He has abrasion to his left lower leg without any pain or discomfort with walk. Patient denies hip pain, abdominal pain vomiting, diarrhea, middle lower back pain, dysuria, bowel or urine incontinence or saddle paresthesia. Reports headache with mild dizziness. Denies taking anything for pain. He is up-to-date on his tetanus within the past 5 years. He does have some mild bruising to the left-sided chest. Vital signs stable. Patient states he does have pain all over Allergies and Home Medications Allergies Coded Allergies: sulfamethoxazole (Verified Allergy, Unknown, 01/01/13) trimethoprim (Verified Allergy, Unknown, 01/01/13) eszopiclone (Verified Adverse Reaction, Unknown, MAKES EVERYTHING TASTE BAD, 10/18/18) Patient Home Medication List Home Medication List Reviewed: Yes Atorvastatin Calcium (Atorvastatin Calcium) 10 Mg Tablet, 10 MG PO HS, (Reported) Entered as Reported by: SIVA BLACK on 05/06/22 133 Buspirone HCl (Buspirone HCl) 5 Mg Tablet, 5 MG PO, (Reported) Entered as Reported by: SIVA BLACK on 05/06/22 133 Celecoxib (Celebrex) 50 Mg Capsule, 50 MG PO, (Reported) Entered as Reported by: SIVA BLACK on 05/06/22 133 Chlorhexidine Gluconate (Chlorhexidine Gluconate) 0.12 % Mouthwash, (Reported) Entered as Reported by: YARED GUIDRY on 06/14/212225 Cyclobenzaprine HCl (Cyclobenzaprine HCl) 5 Mg Tablet, 5 MG PO, (Reported) Entered as Reported by: SIVA BLACK on 05/06/22 133 Desvenlafaxine Succinate (Pristiq) 50 Mg Tab.sr.24h, 50 MG PO DAILY Prescribed by: ILEANA DAY on 10/04/13 1451 Doxepin HCl (Doxepin HCl) 50 Mg Capsule, (Reported) Entered as Reported by: YARED GUIDRY on 06/14/212225 Doxepin HCl (Doxepin HCl) 10 Mg Capsule, (Reported) Entered as Reported by: YARED GUIDRY on 06/14/212225 Gabapentin (Gabapentin) 800 Mg Tablet, 800 MG PO, (Reported) Entered as Reported by: SIVA BLACK on 05/06/22 133 Ixekizumab (Taltz Autoinjector) 80 Mg/Ml Auto.injct, 80 MG SQ, (Reported) Entered as Reported by: SIVA BLACK on 05/06/22 133 Ketorolac Tromethamine (Ketorolac Tromethamine) 10 Mg Tablet, 10 MG PO TID Prescribed by: MICHAELLE HENLEY on 10/26/22 1617 Levocetirizine Dihydrochloride (Xyzal) 5 Mg Tablet, 5 MG PO, (Reported) Entered as Reported by: SIVA BLACK on 05/06/22 133 Metoprolol Succinate (Toprol Xl) 25 Mg Tab.er.24h, 25 MG PO DAILY Prescribed by: HONORIO CHAMBERS on 11/30/14 2145 Mirtazapine (Mirtazapine) 15 Mg Tablet, 15 MG PO, (Reported) Entered as Reported by: SIVA BLACK on 05/06/22 1332 Oxycodone HCl/Acetaminophen (Oxycodone-Acetaminophen 5-325) 5 Mg-325 Mg Tablet, 1 EACH PO Q4H PRN for PAIN-SEVERE, (Reported) Entered as Reported by: SIVA BLACK on 05/06/22 1332 Pantoprazole Sodium (Pantoprazole Sodium) 40 Mg Tablet.dr (Reported) Entered as Reported by: YARED GUIDRY on 06/14/21 2226 Review of Systems Review of Systems Constitutional: No chills Eyes: Denies Blurred Vision, Denies Drainage, Denies Decreased Acuity Ears, Nose, Mouth, Throat: denies ear pain, denies ear discharge Respiratory: No cough; dyspnea on exertion Cardiovascular: chest pain Gastrointestinal: No abdominal pain, No diarrhea, No nausea Genitourinary: No decreased output, No discharge Musculoskeletal: No back pain; joint pain, joint swelling, muscle pain, muscle stiffness Skin: change in color; No change in hair/nails Past Luezeoz-Hhtxio-Vpwfot Hx Immunizations Up To Date Tetanus Booster (TDap): Less than 5yrs First/Initial COVID19 Vaccinat: YES Second COVID19 Vaccination Shadi: YES Third COVID19 Vaccination Date: N/A Seasonal Allergies Seasonal Allergies: Yes Past Medical History Surgery/Hospitalization HX: cervical fusion, colonoscopy, left partial nephrectomy, htn, renal ca, colitis, gerd, ibs, djd, adhd, anx/dep, psoriasis. Surgeries: Yes (CERVICAL FUSION, L KIDNEY REMOVAL) Respiratory: No Cardiac: Yes High Cholesterol, Hypertension Neurological: No Reproductive Disorders: No Genitourinary: Yes (kidney cancer) Gastrointestinal: Yes Colitis, Gastroesophageal Reflux, Irritable Bowel Musculoskeletal: Yes (HERNIATED DISK,3 FUSED VERTEBRAE,RADIATING NERVE PAIN,NUMBNESS AND TINGLING) Degenerate Disk Disease, Arthritis, Fractures Endocrine: No HEENT: Yes Tinnitis Cancer: Yes Kidney Did You Recieve Any Treatments: No What Type of Treatment Did You: Surgical Intervention Psychosocial: Yes ADD/ADHD, Anxiety, Depression Integumentary: Yes Psoriasis Blood Disorders: Yes (ANEMIA) Family Medical History Cancer 03 FATHER, Onset:60 years & older Family history: Thyroid disorder 09 SISTER Stroke GRANDMOTHER No Pertinent Family Hx Physical Exam Vital Signs Vital Signs - First Documented 10/26/22 14:46 Temp 37.4 Pulse 101 Resp 20 B/P (MAP) 129/92 (104) Pulse Ox 96 O2 Delivery Room Air Capillary Refill : Height, Weight, BMI Height: 6'1.00" Weight: 250lbs. 8.0oz. 113.943902du; 33.00 BMI Method:Stated General Appearance: WD/WN, mild distress HEENT: PERRL/EOMI, normal ENT inspection, TMs normal, pharynx normal, other (Left-sided facial tenderness. No head contusion or swelling.) Neck: other (Left-sided cervical paraspinal muscle tenderness. No cervical midline tenderness. Normal active range of motion) Cardiovascular: regular rate, rhythm, no edema, no gallop, no JVD Respiratory: chest non-tender, lungs clear, other (Left-sided rib tenderness without crepitus. Mild bruising. Lung sounds clear throughout.) Gastrointestinal: normal bowel sounds, non tender, soft, no organomegaly Back: normal inspection, no CVA tenderness, no vertebral tenderness Extremities: other (Small abrasion to left lower hair. No tenderness of the tib-fib. No hip tenderness with normal range of motion bilateral hips, bilateral knees and bilateral ankles. Mild tenderness to left anterior shoulder with bruising and swelling. Neurovascular intact. 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, no motor/sensory deficits, alert, normal mood/affect, oriented x 3 Skin: other (Abrasion to left mid tib-fib) Progress/Results/Core Measures Results/Orders My Orders Orders - KARMA SALINAS Ct Head/Face/Cervical Wo (10/26/22 14:56) Shoulder, Left, 3 Views (10/26/22 14:56) Wrist, Left, 3 Views Or More (10/26/22 14:56) Ribs, Left 2-3 Views (10/26/22 14:56) Ketorolac Injection (Ketorolac Injection (10/26/22 16:30) Medications Given in ED Current Medications Medications Dose Ordered Sig/Joy Route Start Time Stop Time Status Last Admin Dose Admin Ketorolac Tromethamine 30 mg ONCE ONCE IM 10/26/22 16:30 10/26/22 16:26 DC 10/26/22 16:20 30 MG Vital Signs/I&O 10/26/22 14:46 Temp 37.4 Pulse 101 Resp 20 B/P (MAP) 129/92 (104) Pulse Ox 96 O2 Delivery Room Air Blood Pressure Mean: 104 Departure Communication (PCP) Patient presents to the ED for evaluation after a fall. Patient states his dog took off running after another dog resulting of the him falling off a 2 foot back porch. Landed on his left side. Possible loss conscious for 2 seconds but not on blood thinners. GCS of 15. Alert and orient x4. Differential diagnoses fracture, muscle strain, intracranial bleed. On exam he has left-sided facial head pain and neckpain. No cervical, thoracic or lumbar midline tenderness but a history of previous injuries of his cervical spine. Left-sided rib tenderness with pain with deep inspiration. Mild bruising. No anterior abdominal or chest wall tenderness. Vital signs stable. Abrasion to left lower leg without any tenderness on palpation. No hip tenderness. Patient able to ambulate without much pain in his lower extremities. He does have some swelling abrasion to his left wrist and left shoulder with normal range of motion. CT scan of the head face cervical neck was ordered. X-ray left shoulder, left-sided ribs and left wrist was ordered. CT scan head face and cervical neck was negative for acute abnormality. Rib, shoulder and wrist x-ray was negative for acute fracture, pneumothorax. Received Toradol IM. Patient does have diffuse body pains. No thoracic or lumbar midline tenderness. No neurological red flag findings. Patient without any weakness. Discussed with patient he may continue having muscle soreness for the next 1 to 2 weeks. Recommend anti-inflammatories. Will discharge with ketorolac per his request. Patient received IM Toradol here. He does have muscle relaxers at home. Ice and rest. If any worsening symptoms such as severe head pain, difficulty breathing, vomiting, weakness to return back to ED. Follow-up with PCP in 2 to 3 days for reevaluation Impression Primary Impression: Head injury Additional Impression: Muscle soreness Disposition: 01 HOME, SELF-CARE Condition: Stable Departure-Patient Inst. Decision time for Depature: 15:13 Referrals: NO,LOCAL PHYSICIAN (PCP) Primary Care Physician AMANDA PINEDA APRN (Family) Primary Care Physician Patient Instructions: Minor Head Injury, Adult ED Add. Discharge Instructions: Recommend anti-inflammatories such as ibuprofen or naproxen for pain. Ice to he lp with swelling. Rest for the next week. If any worsening symptoms return back to ED All discharge instructions reviewed with patient and/or family. Voiced understanding. Scripts Ketorolac Tromethamine (Ketorolac Tromethamine) 10 Mg Tablet 10 MG PO TID, #5 TAB Prov: KARMA SALINAS 10/26/22 KARMA SALINAS Oct 26, 2022 15:13
--- NOTE | 2022-10-26 15:43 | Diagnostic Imaging Report ---
PROCEDURE: CT head, face and cervical spine without contrast. TECHNIQUE: Multiple contiguous axial images were obtained through the head, neck, and facial bones without the use of intravenous contrast. Sagittal and coronal reformations through the cervical spine and facial bones were also performed. Auto Exposure Controls were utilized during the CT exam to meet ALARA standards for radiation dose reduction. INDICATION: Left-sided head pain and facial pain. Injury. Jaw pain. COMPRESSION: 02/07/2017. FINDINGS: CT of the head demonstrates no evidence of acute intracranial hemorrhage. There is no finding of an abnormal extra-axial collection. There is no intracranial mass effect or shift. There is no hydrocephalus. [place] and white matter differentiation is well-maintained. There is no finding of edema. There is no CT evidence of a calvarial fracture. The mastoid air cells are clear. There is a mucous retention cyst in the right maxillary sinus. CT of the face demonstrates no evidence of an orbital fracture. The intraorbital contents are normal. There is no displaced nasal bone fracture. There is no finding of a fracture of the maxilla. There is no zygomatic arch fracture. There are arthritic changes of the temporomandibular joints. There is no TMJ dislocation. There is no evidence of a mandibular fracture. Note is made of numerous dental caries. Cervical spine demonstrates normal alignment. There are previous operative changes of an anterior cervical discectomy and fusion of C5-C7. Craniocervical junction relationships are maintained. The facets are normally aligned. There is no facet joint or disc space widening. There are multilevel degenerative endplate changes as well as facet arthropathy. There is, however, no finding of an acute cervical spine fracture. Soft tissues of the neck demonstrate no acute process. IMPRESSION: 1. No CT evidence of an acute intracranial abnormality. 2. No evidence of a calvarial or facial fracture. 3. Periodontal disease. 4. Degenerative and postsurgical changes within the cervical spine without finding of fracture or traumatic malalignment. Dictated by: Dictated on workstation # [id number]
--- NOTE | 2022-10-26 15:58 | Diagnostic Imaging Report ---
INDICATION: Left posterior rib pain. FINDINGS: These three views of the left-sided ribs demonstrate no evidence of left rib fracture or rib lesion. The visualized portion of the lungs is clear. IMPRESSION: No evidence of a left-sided rib fracture. Dictated by: Dictated on workstation # [id number]
--- NOTE | 2022-10-26 15:58 | Diagnostic Imaging Report ---
INDICATION: Left shoulder pain. Fall. FINDINGS: There are osteoarthritic changes of the glenohumeral joint and at the AC joint. AC joint alignment and glenohumeral joint relationships are maintained. There is no proximal humeral fracture or clavicular fracture. There is no evidence of a fracture of the scapula. The visualized ribs and the left lung are unremarkable. IMPRESSION: AC joint and glenohumeral joint osteoarthritic changes. No finding of fracture, dislocation or malalignment. Dictated by: Dictated on workstation # [id number]
--- NOTE | 2022-10-26 15:59 | Diagnostic Imaging Report ---
INDICATION: Wrist pain. Fall. FINDINGS: The distal radius and ulna demonstrate no finding of cortical disruption or acute fracture. There is mild radiocarpal joint space narrowing. There is no widening of the intercarpal joint spaces or finding of a carpal fracture. There is no scaphoid fracture evident. There is no focal soft tissue abnormality. IMPRESSION: Mild arthritic changes within the left wrist. No fracture or malalignment evident. Dictated by: Dictated on workstation # [id number]
[2022-10-26] MEDS ORDERED: KETO10TA PO (16:17)
[2022-10-26] MEDS ORDERED: KETOROLAC INJ 30 MG/ML VIAL IM ONE (16:30)
== END 2022-10-26 16:24 | disposition home or self-care (01) ==
LOC: EDUNIT# 14:34 → ER 14:36
DX: S09.90XA Unspecified injury of head, initial encounter (principal); S40.012A Contusion of left shoulder, initial encounter; S80.812A Abrasion, left lower leg, initial encounter; M54.2 Cervicalgia; M25.532 Pain in left wrist; R07.81 Pleurodynia; W13.0XXA Fall from, out of or through balcony, initial encounter; Y93.02 Activity, running
CPT/HCPCS: 70450; 70486; 71100; 72125; 73030; 73110